=== PATIENT | female | born 1935 | race Caucasian/White ===

== ENCOUNTER 2019-08-16 16:07 | Inpatient (IN) | payer OTHER, MEDICARE ==
--- OUTSIDE RECORDS SUMMARY | 2019-08-16 16:09 | XMS REPORT | Clinical Summary ---
:[address] [facility] Address [address] [place] [address] Care Team Providers Name Role Phone Pcp Primary Care Provider Unavailable Allergies Active Allergy Reactions Severity Noted Date Comments Black [place] Hives 07/17/2019 Egg Yolk 07/17/2019 Only runny nose Raloxifene Swelling 07/27/2014 Gabapentin Palpitations Low 07/27/2014 Oxybutynin 01/19/2019 Scopolamine 07/27/2014 Hallucination Tree Nut Hives 07/17/2019 Medications Medication Sig Dispensed Refills Start End Date Status Date atorvastatin Take 40 mg by 0 Act chris (LIPITOR) 40 MG mouth daily. tablet levothyroxine Take 25 mcg by 0 A ctive (SYNTHROID, mouth Every LEVOTHROID) 25 MCG morning on an tablet empty stomach. Lactobacillus Take 1 tablet by 60 tablet 1 Active acidoph-L.bulgar mouth 2 (two) 8 (FLORANEX) 1 times daily. million cell Tab per tablet amiodarone Take 100 mg by 0 Acti ve (PACERONE) 100 MG mouth daily. tablet levETIRAcetam Take 250 mg by 0 A ctive (KEPPRA) 250 MG mouth 2 (two) 0 tablet times daily. fenofibrate Take 160 mg by 0 Act chris (TRIGLIDE,LOFIBRA) mouth daily. 0 160 MG tablet metoprolol Take 25 mg by 0 Activ e succinate mouth 2 (two) 0 (TOPROL-XL) 25 MG times daily. 24 hr tablet MYRBETRIQ 50 mg 50 mg by O2 0 Ac tive Tb24 ER tablet Aerosolization 0 route daily. rivaroxaban Take 15 mg by 0 Acti ve (XARELTO) 15 mg mouth daily. 9 Tab tablet fenofibrate Take 160 mg by 0 07/17/19 Dis continued (TRICOR) 145 MG mouth daily . 20 tablet rivaroxaban Take 20 mg by 0 07/17/19 Disc ontinued (XARELTO) 20 mg mouth daily with 20 Tab tablet dinner. levETIRAcetam Take 500 mg by 0 07/17/19 D iscontinued (KEPPRA) 500 MG mouth 2 (two) 20 tablet times daily . amiodarone Take 1 tablet (100 30 tablet 1 08/21/19 (PACERONE) 100 MG mg total) by mouth 8 19 tablet daily. acetaminophen Take 2 tablets 30 tablet 0 10/19/19 E xpired (TYLENOL) 325 MG (650 mg total) by 8 19 tablet mouth every 4 (four) hours as needed for Fever (greater than 100.4F) for up to 360 days. metoprolol Take 1 tablet (25 180 tablet 1 10/24/19 (TOPROL-XL) 25 MG mg total) by mouth 8 19 24 hr tablet 2 (two) times daily. Hospital, Clinic, or Other Ordered Dose Route Frequency Start Date End Date Status Facility Administered Medication chlorhexidine (HIBICLENS) Top Once 07/17/2019 Ended external liquid 4% Active Problems Problem Noted Date Atrial flutter 07/21/2019 Hemorrhagic shock 10/17/2017 Acute blood loss anemia 10/17/2017 Hypothyroid 10/17/2017 S/P cholecystectomy 10/17/2017 A-fib 08/18/2017 Diverticulitis 08/15/2017 Cholelithiasis 08/13/2017 Syncope, cardiogenic 07/18/2017 Atrial fibrillation 07/27/2014 Encounters Date Type Specialty Care Team Description 07/21/2019 Surgery Agus Ramesh EPS & ABLATION OF SVT MD Hema W/ KETAN 07/21/2019 Hospital Encounter Agus Ramesh MD 07/21/2019 Orders Only Cardiology Agus Ramesh MD 07/17/2019 Office Visit Cardiology Agus Ramesh Pre-op exam (Pr owen Garrido MD Dx) Codey Norman RN 07/17/2019 Travel 07/17/2019 Orders Only General Internal Medicine 08/18/2018 Hospital Encounter Nico Rogers Paroxys mal atrial fibrillation (HCC); MD Miller Hypertension, u nspecified type; Hyperlipidemia, unspecified hyperlipidemia type; Mitral valve fi lamentous strands; High risk medic ation use; Abnormal breath sounds after 08/15/2018 Family History Medical History Relation Name Comments Cancer Father Heart disease Mother Stroke Mother Stroke Sister Relation Name Status Comments Father Mother Sister Social History Tobacco Use Types Packs/Day Years Used Date Never Smoker Smokeless Tobacco: Never Used Alcohol Use Drinks/Week oz/Week Comments No Sex Assigned at Date Recorded Not on file Job Start Date Occupation Industry Not on file Not on file Not on file Travel History Travel Start Travel End No recent travel history available. Last Filed Vital Signs Vital Sign Reading Time Taken Blood Pressure 99/56 07/21/2019 2:00 PM CDT Pulse 76 07/21/2019 2:00 PM CDT Temperature 36.7 C (98.1 F) 07/21/2019 7:38 AM CDT Respiratory Rate 16 07/21/2019 2:00 PM CDT Oxygen Saturation 98% 07/21/2019 2:00 PM CDT Inhaled Oxygen Concentration - - Weight 58.2 kg (128 lb 4.8 oz) 07/21/2019 7:38 AM CDT Height 170.2 cm (5' 7") 07/21/2019 7:38 AM CDT Body Mass Index 20.09 07/21/2019 7:38 AM CDT Plan of Treatment Health Maintenance Due Date Last Done Comments MEDICARE ANNUAL WELLNESS (YEAR 2 or FIRST 04/27/2003 YEAR if no IPPE) PNEUMOCOCCAL 65+ LOW/MEDIUM RISK (2 of 2 - 11/28/201811/28, 06/10/2012 PCV13) INFLUENZA VACCINE (Season Ended) 2019 11/19/2013 Implants Implanted Type Area Life Sciences Manager Device Shelf Model / Identifier Expiration Serial / Date Lot Lead Pacemkr Capsur Novus [id number] - [id number] Pacemaker Le ad N/A: [employer]:CARD 04/30/2019 [id number] / Implanted: Qty: 1 on 07/19/2017 by Agus Ramesh MD Heart RHY:DISEASE MGT [id number] / Lead Pacemkr Capsur Novus [id number] - [id number] Pacemaker Le ad N/A: [employer]:CARD 02/09/2019 [id number] / Implanted: Qty: 1 on 07/19/2017 by Agus Ramesh MD Heart RHY:DISEASE MGT [id number] / Cristy Xt Dr Stephania Valenzuela Pacemakers N/A: [employer] 11/26 [id number] / Implanted: Qty: 1 on 07/19/2017 by Agus Ramesh MD He art [id number] / Procedures Procedure Name Priority Date/Time Associated Diagnosis Comme nts CARDIAC CATH REPORT - 07/22/2019 10:40 AM SCAN CDT EPS & ABLATION OF SVT 07/21/2019 7:35 AM Atrial flutt er, W/ KETAN CDT unspecified type (HCC) Case Notes (2)CASE 6TOP / SVT w/ ketan Special Needs No anesthesia TRANSFUSION SERVICE 07/18/2019 5:53 PM REPORT - SCAN CDT CBC W/PLT COUNT & AUTO Routine 07/17/2019 1:06 PM Results for this DIFFERENTIAL CDT procedure are i n the results section . TYPE AND SCREEN, STAT 07/17/2019 1:06 PM Pre-op exam Resu lts for this AUTOMATED CDT procedure are i n the results section . PROTHROMBIN TIME/INR Routine 07/17/2019 1:06 PM Results for this CDT procedure are i n the results section . CBC W/PLT COUNT & AUTO Routine 07/17/2019 1:06 PM Results for this DIFFERENTIAL CDT procedure are i n the results section . BASIC METABOLIC PANEL Routine 07/17/2019 1:06 PM Results for this (7) CDT procedure are i n the results section . SARS-COV2/RT-PCR (HS & Routine 07/17/2019 12:43 PM Pre-op ex am Results for this REF LABS) CDT procedure are i n the results section . ECG 12-LEAD Routine 07/17/2019 12:25 PM Results for this CDT procedure are i n the results section . ECG 12-LEAD Routine 07/17/2019 12:25 PM CDT Procedure Note - Interface, External Ris In - 07/17/2019 12:22 PM CDT Ventricular Rate 72 BPM Atrial Rate 72 BPM P-R Interval 156 ms QRS Duration 96 ms Q-T Interval 390 ms QTC Calculation(Bazett) 427 ms P [place] 61 degrees R [place] 41 degrees T [place] 79 degrees Normal sinus rhythm Incomplete right bundle bran ch block Borderline ECG When compared with ECG of 15:01, Nonspecific T wave abnormali ty no longer evident in Inferior leads QT has shortened XR CHEST 2 Routine 08/18/2018 11:00 Paroxysmal atrial Result s for this VIEWS AM CDT fibrillation (HC C) procedure are in Hypertension, unspecified th e results type section. Hyperlipidemia, unspecified hyperlipidemia t ype Mitral valve filamentous strands High risk medica tion use Abnormal breath sounds after 08/15/2018 Results CARDIAC CATH REPORT - SCAN (07/22/2019 10:40 AM CDT) Narrative Performed At This result has an attachment that is no t available. TRANSFUSION SERVICE REPORT - SCAN (07/18/2019 5:53 PM CDT) Narrative Performed At This result has an attachment that is no t available. Type and screen, automated ([facility] Blood [facility]) (07/17/2019 1:06 PM CDT) ABO/RH AUTOMATED (BEAKER) A POSITIVE [facility] Ab Scrn NEGATIVE [facility] Specimen Blood Performing Organization Address City/State/Zipcode Phone Number [facility] [address] [place] [address] CBC with platelet count + automated diff (07/17/2019 1:06 PM CDT) WBC 7.9 3.5 - 10.5 K/L [facility] RBC 4.34 3.93 - 5.22 M/L [facility] Hemoglobin 13.0 11.2 - 15.7 GM/DL [facility] Hematocrit 40.8 34.1 - 44.9 % [facility] MCV 94.0 79.4 - 94.8 fL [facility] MCH 30.0 25.6 - 32.2 pg [facility] MCHC 31.9 (L) 32.2 - 35.5 GM/DL [facility] RDW 15.1 (H) 11.7 - 14.4 % [facility] Platelets 202 150 - 450 K/CU MM [facility] MPV 9.6 9.4 - 12.[address] [facility] nRBC 0 0 - 0 /[address] [facility] % Neutros 69 % [facility] % Lymphs 22 % [facility] % Monos 6 % [facility] % Eos 2 % [facility] % Baso 1 % [facility] # Neutros 5.45 1.56 - 6.13 K/L [facility] # Lymphs 1.74 1.18 - 3.74 K/L [facility] # Monos 0.45 (H) 0.24 - 0.36 K/L [facility] # Eos 0.17 0.04 - 0.36 K/L [facility] # Baso 0.04 0.01 - 0.08 K/L [facility] Immature Granulocytes-Relative 0 0 - 1 % C HI [facility] Specimen Blood Performing Organization Address City/State/Zipcode Phone Number [facility] [address] [place] [address] CENTER Prothrombin time/INR (07/17/2019 1:06 PM CDT) Protime 18.0 (H) 11.9 - 14.2 seconds [facility] INR 1.5 <=5.9 [facility] Specimen Blood Narrative Performed At Effective 07/23/2018: PT Reference Range [facility] Change New: 11.9-14.2Previous: 11.7-14.7 RECOMMENDED COUMADIN/WARFARIN INR THERAPY RANGES STANDARD DOSE: 2.0-3.0Includes: PROPHYLAXIS for venous thrombosis, systemic embolization; TREATMENT for venous thrombosis and/or pulmonary embolus. HIGH RISK: Target INR is 2.5-3.5 for patients wiht mechanical heart valves. Performing Organization Address [facility] Cent[facility]ode Phone Number [address] [phone] CENTER Basic Metabolic Panel (07/17/2019 1:06 PM CDT) Sodium 140 136 - 145 meq/L [facility] Potassium 4.4 3.5 - 5.1 meq/L [facility] Chloride 107 98 - 107 meq/L [facility] CO2 28 22 - 29 meq/L [facility] BUN 17 7 - 21 mg/dL [facility] Creatinine 0.91 0.57 - 1.25 mg/dL [facility] Glucose 81 70 - 105 mg/dL [facility] Calcium 10.1 8.4 - 10.2 mg/dL [facility] EGFR 59Comment: ESTIMATED GFR IS mL/min/1.73 sq m [facility] NOT ACCURATE CREATININE [facility] CLEARANCE IN PREDICTING GLOMERULAR FILTRATION RATE. ESTIMATED GFR IS NOT APPLICABLE FOR DIALYSIS PATIENTS. Specimen Blood Narrative Performed At Human Resource Management Instructor AYDEN - VAN Weber [facility] Performing Organization Address [facility] Centercovt Phone Number [place] [phone] [place] [address] CENTER SARS-CoV2/RT-PCR (HS & Ref Labs) (07/17/2019 12:43 PM CDT) SARS-COV2/RT-PCR Negative Not Detected, Negative [facility] NON -INTERFACED REFERENCE LABS SARS-COV-2 PERFORMING LAB CPL [facility] N ON-INTERFACED REFERENCE LABS Specimen Other Performing Organization Address [facility] Phone Number [facility] NON-INTERFACED REFERENCE LABS ECG 12 lead (07/17/2019 12:25 PM CDT) Specimen Narrative Performed At Ventricular Rate 72 BPM GE MUSE Atrial Rate 72 BPM P-R Interval 156 ms QRS Duration 96 ms Q-T Interval 390 ms QTC Calculation(Bazett) 427 ms P [place] 61 degrees R [place] 41 degrees T [place] 79 degrees Normal sinus rhythm Incomplete right bundle branch block Confirmed by MD BAIRES JAMES T ([id number]) on 0 3:01:57 PM Procedure Note Interface, External Ris In - 07/21/2019 3:02 PM CDT Ventricular Rate 72 BPM Atrial Rate 72 BPM P-R Interval 156 ms QRS Duration 96 ms Q-T Interval 390 ms QTC Calculation(Bazett) 427 ms P [place] 61 degrees R [place] 41 degrees T [place] 79 degrees Normal sinus rhythm Incomplete right bundle branch block Confirmed by MD BAIRES JAMES T ([id number]) on 07/21/2019 3:01:57 PM Performing Organization Address City/State/Zipcode Phone Number GE MUSE XR Chest 2 Views (08/18/2018 11:00 AM CDT) Specimen Narrative Performed At FINAL REPORT GE RIS PA and Lateral views of the chest dated 08/18/2018 COMPARISON: February 03, 2018 Clinical information: i48.0, i10, e78.5, i34.8, z79.899, r06.89 Comment:Heart is normal in size. Tho racic aorta is ectatic. AICD remains in place. Pulmonary vasculature is unremarkable. Lungs are clear. No pulmonary infiltrate or pleura l effusion is present. Impression: Stable interval examination of the chest. Signed: Kenia Morrison MD Report Verified Date/Time:08/18/2018 11:22:44 Reading Location: [address] Radiolog y Reading Room Procedure Note Interface, External Ris In - 08/18/2018 11:24 AM CDT FINAL REPORT PA and Lateral views of the chest dated 08/18/2018 COMPARISON: February 03, 2018 Clinical information: i48.0, i10, e78.5, i34.8, z79.899, r06.89 Comment: Heart is normal in size. Thora cic aorta is ectatic. AICD remains in place. Pulmonary vasculature is unremarkable. Lungs are clear. No pulmonary infiltrate or pleura l effusion is present. Impression: Stable interval examination of the chest. Signed: Kenia Morrison MD Report Verified Date/Time: 08/18/2018 1 1:22:44 Reading Location: [address] Radiolog y Reading Room Performing Organization Address City/State/Zipcode Phone Number GE RIS after 08/15/2018 Insurance Payer Benefit Plan / Group Subscriber ID Type Phone A ddress MEDICARE MEDICARE A B xxxxxxxxxxx Medicare MCR AARP/UNITED xxxxxxxxxxx Medigap SUPPLEMENT/[facility] CDCREVIEW CDCREVIEW xxxxx[place] [address] [place] [place] [address] Advance Directives For more information, please contact:[address] [phone] Code Status Date Activated Date Inactivated Comments Full Code 07/21/2019 12:09 PM 07/21/2019 5:54 PM This code status was determined by: Patient Full Code 10/17/2017 5:58 AM 10/23/2017 12:59 PM This code status was determined by: Patient Full Code 08/18/2017 6:39 PM 08/20/2017 7:40 PM This code status was determined by: Patient Full Code 07/18/2017 4:50 PM 07/20/2017 8:47 PM This code status was determined by: Patient Full Code 07/27/2014 12:21 PM 07/28/2014 3:34 PM This code status was determined by: Patient
--- OUTSIDE RECORDS SUMMARY | 2019-08-16 16:14 | XMS REPORT | Continuity of Care Document ---
:1935 Author Organization [facility] t Address [address] [place] [address] Care Team Providers Name Role Phone Pcp Primary Care Physician Unavailable Hema Ramesh MD Attending Clinician Emerson GREEN S Attending Clinician Unavailable HEMA RAMESH Attending Clinician Unavailable Toño Rogers MDemiah Attending Clinician REJI VELASCO Attending Clinician Unavailable MARCIANO SRIVASTAVA Attending Clinician Unavailable LISBETH FERNÁNDEZ Attending Clinician Unavailable Lesley GRANADO Attending Clinician Unavailable JASWANT Attending Clinician Unavailable REJI VELASCO Admitting Clinician Unavailable MARCIANO SRIVASTAVA Admitting Clinician Unavailable LISBETH FERNÁNDEZ Admitting Clinician Unavailable Lesley GRANADO Admitting Clinician Unavailable HUEY ANDREWS Admitting Clinician Unavailable Payers Payer Name Policy Policy Number Effective Expiration Source Type Date Date MEDICAREMEDICARE A xxxxxxxxxxx [facility] MCR xxxxxxxxxxx [facility] SUPPLEMENT/INDIVIDUALAARP/UNITE [facility]xxxxxxxxxxx[facility] CDCREVIEWCDCREVIEWxxxxxxxxPO xxxxxxxx [place] [address] [facility] Problems Condition Condition Condition Status Onset Resolution Last Treating Co mments Source Name Details Category Date Date Treatment Clinician Date Atrial Atrial Disease Active [facility] flutter 07-20 [facility]: [facility] 00 [place] Hemorrhagi Hemorrhagi Disease Active [facility] shock c shock 10-17 [facility]: [facility] [place] Acute Acute Disease Active [facility] blood loss blood loss 10-17 Xuan kes - anemia anemia 00:00: Medical [place] Hypothyroi Hypothyroi Disease Active [facility] d d 10-17 [facility] [place] S/P S/P Disease Active [facility] cholecyste cholecyste 10-17 Xuan kes - ctomy ctomy 00:00: Medical [place] A-fib A-fib Disease Active [facility] 08-18 [facility]: Medical [place] Diverticul Diverticul Disease Active [facility] itis itis 08-15 [facility] 00:00: Medical [place] Cholelithi Cholelithi Disease Active [facility] asis asis 08-13 [facility] 00:00: Medical [place] Syncope, Syncope, Disease Active [facility] cardiogeni cardiogeni 07-18 [facility] - c c 00:00: Medical [place] Atrial Atrial Disease Active [facility] fibrillati fibrillati 07-27 Xuan kes - on on 00:00: Medical 00 [place] Allergies, Adverse Reactions, Alerts Allergy Allergy Status Severity Reaction(s) Onset Inactive Treating Comm ents Source Name Type Date Date Clinician Black Propensi Active Hives [facility] - [facility] - adverse 00:[facility]: Medical reaction 00 [facility] Egg Yolk Propensi Active Only [facility] ty to - runny [facility] - adverse 00:00: nose Medical reaction 00 Center s Tree Nut Propensi Active Hives [facility] ty to 5-22 [facility] - adverse 00:00: Medical reaction 00 [place] s scopolam DA Active [place] 2018-02 [facility]-25 Clear 00:00: Cm 00 [facility] egg yolk FA Active [place] 2018-02 [facility] 1-25 Clear 00:00: Cm 00 [facility] raloxife DA Active [place] 2018-02 [facility] ne 1-25 Clear 00:00: Cm 00 [facility] Oxybutyn Propensi Active 2018-[address] in ty to 03-21 [facility] - adverse 00:00: Medical reaction 00 Center s Raloxife Propensi Active Swelling [facility] ne ty to 07-27 [facility] - adverse 00:00: Medical reaction 00 Center s Gabapent Propensi Active Palpitations [facility] in ty to 07-27 [facility] - adverse 00:00: Medical reaction 00 Center s Scopolam Propensi Active Hallucina [facility] ty to 07-27 tion [facility] - adverse 00:00: Medical reaction 00 [facility] s scopolam DA Active [facility] [address] [place] 00:00: d 00 [facility] egg yolk FA Active [place] [facility] 4-17 [place] 00:00: d 00 [facility] raloxife DA Active [place] [facility] ne 4-17 [place] 00:00: d 00 [facility] NUTS DA Active [place] [facility] -ALL 4-16 Clear EXCEPT 00:00: Cm PEANUTS 00 [facility] Family History Family Member Diagnosis Comments Start Date Stop Date Source Natural father Cancer [facility] Natural mother Heart disease [facility] Natural mother Stroke [facility] Natural sister Stroke [facility] Social History Social Habit Start Date Stop Date Quantity Comments Source Sex Assigned At [facility] Smoking Status Start Date Stop Date Source Never smoker [facility] Medications Ordered Filled Start Stop Current Ordering Indication Dosage Frequency Signature Comments Components Source Medication Medication Date Date Medication? Clinician (SIG) Name Name chlorhexidi 2019-0 2020- No [facility]22 [facility] - (HIBICLENS) 13:00: 13:30 Medic al external 00 :00 [facility] liquid 4% fenofibrate 2019- 2020- No 160mg QD Take [address] (TRICOR) - 05-22 mg by [facility] - 145 MG 12:35: 00:00 mouth Medical tablet 53 :00 daily . [facility] rivaroxaban 2019-0 2020- No 20mg Take [address] (XARELTO) - 05-22 by mouth [facility] - 20 mg Tab 12:35: 00:00 daily with M edical tablet 37 :00 dinner. [place] levETIRAcet 2020- No 500mg Q.5D Take [address] [facility] (KEPPRA) 5-22 05-22 mg by [facility] - 500 MG 12:35: 00:00 mouth 2 Medical tablet 37 :00 (two) Center times daily . amiodarone 0 Yes 100mg QD Take [address] (PACERONE) 5-22 mg by [facility] - 100 MG 12:33: mouth Medical tablet 43 daily. [place] levETIRAcet 0 Yes 250mg Q.5D Take [address] am (KEPPRA) 5-06 mg by [facility] - 250 MG 00:00: mouth 2 Medical tablet 00 (two) Center times daily. MYRBETRIQ Yes 50mg QD [address] [facility] 50 mg Tb24 4-29 O2 [facility] - ER tablet 00:00: Aerosoliza Me dical 00 tion route Center daily. metoprolol Yes 25mg Q.5D Take [address] succinate 4-06 by mouth 2 [facility] - (TOPROL-XL) 00:00: (two) Medic al 25 MG 24 hr 00 times Center tablet daily. fenofibrate Yes 160mg QD Take [address] (TRIGLIDE,L 3-23 mg by [facility] - OFIBRA) 160 00:00: mouth Medic al MG tablet 00 daily. [place] rivaroxaban 2018-02 Yes 15mg QD Take [address] (XARELTO) 1-18 by mouth [facility] - 15 mg Tab 00:00: daily. Medica l tablet 00 [place] metoprolol 2019- No 25mg Q.5D Take [address] (TOPROL-XL) 10-23 tablet (25 L [facility] - 25 MG 24 hr 00:00: 23:59 mg total) Medical tablet 00 :00 by mouth 2 Center (two) times daily. acetaminoph 2018- No 650mg Take [address] en 10-23 08-24 tablets [facility] - (TYLENOL) 00:00: 23:59 (650 mg Medi kip 325 MG 00 :00 total) by Center tablet mouth every 4 (four) hours as needed for Fever (greater than 100.4F) for up to 360 days. amiodarone 2019- No 100mg QD Take [address] (PACERONE) 08-20 06-26 tablet [facility] - 100 MG 00:00: 23:59 (100 mg Medical tablet 00 :00 total) by Center mouth daily. Lactobacill Yes 1{tbl} Q.5D Take [address] [facility] 6-22 tablet by [facility] - acidoph-L.b 00:00: mouth 2 Med ical ulgar 00 (two) Center (FLORANEX) times 1 million daily. cell Tab per tablet levothyroxi Yes 25ug Take [address] ne 5-[address] [facility] - (SYNTHROID, 12:07: mouth Medic al LEVOTHROID) 23 Every Center 25 MCG morning on tablet an empty stomach. atorvastati Yes 40mg QD Take [address] n (LIPITOR) 6-02 by mouth [facility] - 40 MG 11:34: daily. Medical tablet 04 Center Vital Signs Vital Name Observation Time Observation Value Comments Source Systolic blood 2019-07-21 14:00:00 99 mm[Hg] [facility] Diastolic blood 2019-07-21 14:00:00 56 mm[Hg] [facility] Heart rate 2019-07-21 14:00:00 76 /min [facility] Respiratory rate 2019-07-21 14:00:00 16 /min [facility] Oxygen saturation in 2019-07-21 14:00:00 98 /min [facility] Arterial blood by Medical Ce nter Pulse oximetry Body temperature 2019-07-21 07:38:00 36.72 Jessa [facility] Body height 2019-07-21 07:38:00 170.2 cm [facility] Body weight Measured 2019-07-21 07:38:00 58.196 kg [facility] BMI 2019-07-21 07:38:00 20.09 kg/m2 [facility] Procedures Procedure Date / Time Performed Performing Clinician [facility] e CARDIAC CATH REPORT - 2019-07-22 10:40:41 Provider, Default [facility] SCAN Scanning [facility] EPS & ABLATION OF SVT W/ 2019-07-21 07:35:[address] [facility] JONAH [facility] TRANSFUSION SERVICE 2019-07-18 17:53:51 Provider, Eric Baxter - REPORT - SCAN Scanning [facility] BASIC METABOLIC PANEL 2019-07-17 13:06:00 Agus Ramesh [facility] Center PROTHROMBIN TIME/INR 2019-07-17 13:06:00 Agus Ramesh [facility] - [facility] TYPE AND SCREEN, 2019-07-17 13:06:00 Agus Ramesh [facility] - AUTOMATED Medical Center CBC W/PLT COUNT & AUTO 2019-07-17 13:06:00 Agus Ramesh I [facility] - DIFFERENTIAL [facility] SARS-COV2/RT-PCR ([facility] & 2019-07-17 12:43:00 [facility] ECG 12-LEAD 2019-07-17 12:25:[address] [facility] XR CHEST 2 VIEWS 2018-08-18 11:00:00 Nico Rogers [facility] Plan of Care Planned Activity Planned Date Details Comments Source Future Scheduled 2019-10-[address] [facility] - Test 00:00:00 (Season Ended) [code = [facility] INFLUENZA VACCINE (Season Ended)] Future Scheduled 2018-11-28 PNEUMOCOCCAL [address] - Test 00:00:00 LOW/MEDIUM RISK (2 of [facility] 2 - PCV13) [code = PNEUMOCOCCAL 65+ LOW/MEDIUM RISK (2 of 2 - PCV13)] Future Scheduled 2003-04-[address] [facility] - Test 00:00:00 WELLNESS (YEAR 2 or Medical Center FIRST YEAR if no IPPE) [code = MEDICARE ANNUAL WELLNESS (YEAR 2 or FIRST YEAR if no IPPE)] Results Test Description Test Time Test Comments Results Result [facility] e Comments ECG 12 lead 2019-06-27 Interface, External [facility] 6 Ris In - 07/21/2019 - Med ical 15:02:02 3:02 PM Center CDTVentricular Rate 72 BPMAtrial Rate 72 BPMP-R Interval 156 msQRS Duration 96 msQ-T Interval 390 msQTC Calculation(Bazett) 427 msP [place] 61 degreesR [place] 41 degreesT [place] 79 degreesNormal sinus rhythmIncomplete right bundle branch blockConfirmed by MD VIRY, KENIA Major ([id number]) on 07/21/2019 3:01:57 PM SARS-CoV2/RT-PCR ([facility]) 2019-07-19 07:35:00 Test Item Value Reference Range Interpretation Comme nts SARS-COV2/RT-PCR (test code = 16586-5) Negative Not Detected, N egative SARS-COV-2 PERFORMING LAB (test code = 58571-1) [facility])2019-07-19 07:35:00 Test Item Value Reference Range Interpretation Comments SARS-COV2/RT-PCR (test code = Negative Not Detected, Negative [id number]) SARS-COV-2 PERFORMING LAB CPL (test code = 2837173) Type and screen, automated ([facility])2019-07-17 13:45:00 Test Item Value Reference Range Interpretation Comments ABO/RH AUTOMATED (BEAKER) (test A POSITIVE code = 2260) Ab Scrn (test code = 890-4) NEGATIVE [facility] [id number] 13:43:00 Test Item Value Reference Range Interpretation Comments Sodium (test code = 140 meq/L 040-090 6179-2) Potassium (test 4.4 meq/L 3.5-5.1 code = 2823-3) Chloride (test code 107 meq/L 98-107 = 2075-0) CO2 (test code = 28 meq/L -29 2027-9) BUN (test code = 17 mg/dL 7- 3094-0) Creatinine (test 0.91 mg/dL 0.57-1.25 code = 2160-0) Glucose (test code 81 mg/dL 70-105 = 2345-7) Calcium (test code 10.1 mg/dL 8.4-10.2 = 38459-6) EGFR (test code = 59 mL/min/1.73 [place] [address]-9) NOT ACCURATE CREATININE CLEARANCE IN PREDICTING GLOMERULAR FILTRATION RATE . ESTIMATED GFR I S NOT APPLICABLE FOR DIALYSIS PATIEN TSMadelaine VALDOVINOS (test code = Adjunct Instructor Chemistry ID - ARUNA) VAN M [facility] Center[facility]IC METABOLIC [id number] 13:43:00 Test Item Value Reference Range Interpretation Comments SODIUM (BEAKER) 140 meq/L 136-145 (test code = 381) POTASSIUM (BEAKER) 4.4 meq/L 3.5-5.1 (test code = 379) CHLORIDE (BEAKER) 107 meq/L 98-107 (test code = 382) CO2 (BEAKER) (test 28 meq/L 22-29 code = 355) BLOOD UREA NITROGEN 17 mg/dL 7-21 (BEAKER) (test code = 354) CREATININE (BEAKER) 0.91 mg/dL 0.57-1.25 (test code = 358) GLUCOSE RANDOM 81 mg/dL 70-105 (BEAKER) (test code = 652) CALCIUM (BEAKER) 10.1 mg/dL 8.4-10.2 (test code = 697) EGFR (BEAKER) (test 59 mL/min/1.73 ESTIMA SHALONDA GFR IS code = 1092) sq m NOT ACCURATE CREATININE CLEARANCE IN PREDICTING GLOMERULAR FILTRATION RATE . ESTIMATED GFR I S NOT APPLICABLE FOR DIALYSIS PATIEN TS. Adjunct Instructor Chemistry ID - VAN MProthrombin time/[id number] 13:34:00 Test Item Value Reference Range Interpretation Comments Protime (test code = 18.0 11.9- 14.2 H 5902-2) seconds INR (test code = 1.5 <=5.9 6301-6) ARUNA (test code = ARUNA) Effective 07/23/2018: PT Reference Range ChangeNew: 11.9-14.2 Previous: 11.7-14.7 RECOMMENDED COUMADIN/WARFARIN INR THERAPY RANGESSTANDARD DOSE: 2.0-3.0 Includes: PROPHYLAXIS for venous thrombosis, systemic embolization; TREATMENT for venous thrombosis and/or pulmonary embolus.HIGH RISK: Target INR is 2.5-3.5 for patients wiht mechanical heart valves. Lab Interpretation Abnormal (test code = 08315-4) [facility] CenterPROTHROMBIN TIME/[id number] 13:34:00 Test Item Value Reference Range Interpretation Comments PROTIME (BEAKER) (test code = 18.0 seconds 11.9-14.2 H 759) INR (BEAKER) (test code = 370) 1.5 <=5.9 Effective 07/23/2018: PT Reference Range ChangeNew: 11.9-14.2 Previous: 11.7- 14.7RECOMMENDED COUMADIN/WARFARIN INR THERAPY RANGESSTANDARD DOSE: 2.0-3.0 Includes: PROPHYLAXIS for venous thrombosis, systemic embolization; TREATMENT for venous thrombosis and/or pulmonary embolus.HIGH RISK: Target INR is2.5-3.5 for patients wiht mechanical heart valves.CBC with platelet count + automated [id number] 13:16:00 Test Item Value Reference Range Interpretation Comments WBC (test code = 6690-2) 7.9 3.5- 10.5 K/L RBC (test code = 789-8) 4.34 3.93- 5.22 M/L MCHC (test code = 786-4) 31.9 32.2- 35.5 GM/DL L Hematocrit (test code = 4544-3) 40.8 % 34.1-44.9 MCV (test code = 787-2) 94.0 fL 79.4-94.8 MCH (test code = 785-6) 30.0 pg 25.6-32.2 RDW (test code = 788-0) 15.1 % 11.7-14.4 H Platelets (test code = 777-3) 202 150- 450 K/CU MM MPV (test code = 64751-5) 9.6 fL 9.4-12.3 nRBC (test code = 413) 0 0- 0 /100 WBC % Neutros (test code = 429) 69 % % Lymphs (test code = 430) 22 % % Monos (test code = 431) 6 % % Eos (test code = 432) 2 % % Baso (test code = 437) 1 % # Neutros (test code = 670) 5.45 1.56- 6.13 K/L # Lymphs (test code = 414) 1.74 1.18- 3.74 K/L # Monos (test code = 415) 0.45 0.24- 0.36 K/L H # Eos (test code = 416) 0.17 0.04- 0.36 K/L # Baso (test code = 417) 0.04 0.01- 0.08 K/L Immature Granulocytes-Relative 0 % 0-1 (test code = 2801) Lab Interpretation (test code = Abnormal 50446-7) [facility] W/PLT COUNT & AUTO [id number] 13:16:00 Test Item Value Reference Range Interpretation Comments WHITE BLOOD CELL COUNT (BEAKER) 7.9 K/ L 3.5-10.5 (test code = 775) RED BLOOD CELL COUNT (BEAKER) 4.34 M/ L 3.93-5.22 (test code = 761) HEMOGLOBIN (BEAKER) (test code = 13.0 GM/DL 11.2-15.7 410) HEMATOCRIT (BEAKER) (test code = 40.8 % 34.1-44.9 411) MEAN CORPUSCULAR VOLUME (BEAKER) 94.0 fL 79.4-94.8 (test code = 753) MEAN CORPUSCULAR HEMOGLOBIN 30.0 pg 25.6-32.2 (BEAKER) (test code = 751) MEAN CORPUSCULAR HEMOGLOBIN CONC 31.9 GM/DL 32.2-35.5 L (BEAKER) (test code = 752) RED CELL DISTRIBUTION WIDTH 15.1 % 11.7-14.4 H (BEAKER) (test code = 412) PLATELET COUNT (BEAKER) (test 202 K/CU MM 150-450 code = 756) MEAN PLATELET VOLUME (BEAKER) 9.6 fL 9.4-12.3 (test code = 754) NUCLEATED RED BLOOD CELLS 0 /100 WBC 0-0 (BEAKER) (test code = 413) NEUTROPHILS RELATIVE PERCENT 69 % (BEAKER) (test code = 429) LYMPHOCYTES RELATIVE PERCENT 22 % (BEAKER) (test code = 430) MONOCYTES RELATIVE PERCENT 6 % (BEAKER) (test code = 431) EOSINOPHILS RELATIVE PERCENT 2 % (BEAKER) (test code = 432) BASOPHILS RELATIVE PERCENT 1 % (BEAKER) (test code = 437) NEUTROPHILS ABSOLUTE COUNT 5.45 K/ L 1.56-6.13 (BEAKER) (test code = 670) LYMPHOCYTES ABSOLUTE COUNT 1.74 K/ L 1.18-3.74 (BEAKER) (test code = 414) MONOCYTES ABSOLUTE COUNT (BEAKER) 0.45 K/ L 0.24-0.36 H (test code = 415) EOSINOPHILS ABSOLUTE COUNT 0.17 K/ L 0.04-0.36 (BEAKER) (test code = 416) BASOPHILS ABSOLUTE COUNT (BEAKER) 0.04 K/ L 0.01-0.08 (test code = 417) IMMATURE GRANULOCYTES-RELATIVE 0 % 0-1 PERCENT (BEAKER) (test code = 2801) BASIC METABOLIC [id number] 06:49:00 Test Item Value Reference Range Interpretation Comments SODIUM (test code = NA) 144 mmol/L 134-147 N POTASSIUM (test code = 3.1 mmol/L 3.4-5.0 L K) CHLORIDE (test code = 113 mmol/L 100-108 H CL) CARBON DIOXIDE (test 27 mmol/L 21-32 N code = CO2) ANION GAP (test code = 4.0 GAP calc 4.0-15.0 N GAP) GLUCOSE (test code = 80 MG/DL 70-110 N GLU) BLOOD UREA NITROGEN 5 MG/DL 7-18 L (test code = BUN) GLOMERULAR FILTRATION >=60 max estimate >60 RATE (test code = GFR) estGFR CREATININE (test code = 0.6 MG/DL 0.6-1.0 N CREAT) CALCIUM (test code = CA) 8.1 MG/DL 8.5-10.1 L CBC W/AUTO [id number] 06:38:00 Test Item Value Reference Range Interpretation Comments WHITE BLOOD CELL (test code = 7.8 K/mm3 3.5-11.0 N WBC) RED BLOOD CELL (test code = RBC) 2.97 M/mm3 4.70-6.10 L HEMOGLOBIN (test code = HGB) 9.1 G/DL 10.4-14.9 L HEMATOCRIT (test code = HCT) 27.3 % 31.5-44.1 L MEAN CELL VOLUME (test code = 91.9 Fl 84.5-98.6 N MCV) MEAN CELL HGB (test code = MCH) 30.6 pg 27.0-34.2 N MEAN CELL HGB CONCETRATION (test 33.3 G/DL 31.5-34.0 N code = MCHC) RED CELL DISTRIBUTION WIDTH (test 15.7 SD 11.5-14.5 H code = RDW) PLATELET COUNT (test code = PLT) 254.0 K/mm3 150-450 N MEAN PLATELET VOLUME (test code = 9.30 fL 7.0-10.5 N MPV) NEUTROPHIL % (test code = NT%) 64.0 % 40-76 N LYMPHOCYTE % (test code = LY%) 19.6 % 20.5-51.1 L MONOCYTE % (test code = MO%) 8.7 % 1.7-9.3 N EOSINOPHIL % (test code = EO%) 7.4 % 0.0-6.0 H BASOPHIL % (test code = BA%) 0.3 % 0.0-2.0 N NEUTROPHIL # (test code = NT#) 4.99 K/mm3 1.8-7.6 N LYMPHOCYTE # (test code = LY#) 1.5 K/mm3 0.6-3.2 N MONOCYTE # (test code = MO#) 0.7 K/mm3 0.3-1.1 N EOSINOPHIL # (test code = EO#) 0.6 K/mm3 0.0-0.4 H BASOPHIL # (test code = BA#) 0.0 K/mm3 0.0-0.1 N MANUAL DIFF REQUIRED (test code = NO DIFF/SCN CRITERIA MDIFF) GLUCOSE BEDSIDE [id number] 21:04:00 Test Item Value Reference Range Interpretation Comments GLUCOSE BEDSIDE TESTING (test code 121 mg/dL 70-110 H = GLUBED) GLUCOSE BEDSIDE [id number] 16:40:00 Test Item Value Reference Range Interpretation Comments GLUCOSE BEDSIDE TESTING (test code = 88 mg/dL 70-110 N GLUBED) GLUCOSE BEDSIDE [id number] 11:27:00 Test Item Value Reference Range Interpretation Comments GLUCOSE BEDSIDE TESTING (test code 104 mg/dL 70-110 N = GLUBED) GLUCOSE BEDSIDE [id number] 08:18:00 Test Item Value Reference Range Interpretation Comments GLUCOSE BEDSIDE TESTING (test code = 83 mg/dL 70-110 N GLUBED) GLUCOSE BEDSIDE [id number] 21:18:00 Test Item Value Reference Range Interpretation Comments GLUCOSE BEDSIDE TESTING (test code = 98 mg/dL 70-110 N GLUBED) CBC W/AUTO [id number] 11:04:00 Test Item Value Reference Range Interpretation Comments WHITE BLOOD CELL (test 6.7 K/mm3 3.5-11.0 N code = WBC) RED BLOOD CELL (test 2.94 M/mm3 4.70-6.10 L code = RBC) HEMOGLOBIN (test code 9.0 G/DL 10.4-14.9 L = HGB) HEMATOCRIT (test code 27.0 % 31.5-44.1 L = HCT) MEAN CELL VOLUME (test 91.8 Fl 84.5-98.6 N code = MCV) MEAN CELL HGB (test 30.6 pg 27.0-34.2 N code = MCH) MEAN CELL HGB 33.3 G/DL 31.5-34.0 N CONCETRATION (test code = MCHC) RED CELL DISTRIBUTION 15.5 SD 11.5-14.5 H WIDTH (test code = RDW) PLATELET COUNT (test 185.0 K/mm3 150-450 N code = PLT) MEAN PLATELET VOLUME 9.40 fL 7.0-10.5 N (test code = MPV) NEUTROPHIL % (test 59.4 % 40-76 N code = NT%) LYMPHOCYTE % (test 16.5 % 20.5-51.1 L code = LY%) MONOCYTE % (test code 16.1 % 1.7-9.3 H = MO%) EOSINOPHIL % (test 7.7 % 0.0-6.0 H code = EO%) BASOPHIL % (test code 0.3 % 0.0-2.0 N = BA%) NEUTROPHIL # (test 3.95 K/mm3 1.8-7.6 N code = NT#) LYMPHOCYTE # (test 1.1 K/mm3 0.6-3.2 N code = LY#) MONOCYTE # (test code 1.1 K/mm3 0.3-1.1 N = MO#) EOSINOPHIL # (test 0.5 K/mm3 0.0-0.4 H code = EO#) BASOPHIL # (test code 0.0 K/mm3 0.0-0.1 N = BA#) MANUAL DIFF REQUIRED NO DIFF/SCN CRITERIA SLIDE R ADINW (test code = MDIFF) CONSISTA NT WITH AUTO DIFFERENTIAL. CBC W/AUTO [id number] 06:41:00 Test Item Value Reference Range Interpretation Comments WHITE BLOOD CELL (test code = 6.7 K/mm3 3.5-11.0 N WBC) RED BLOOD CELL (test code = RBC) 2.94 M/mm3 4.70-6.10 L HEMOGLOBIN (test code = HGB) 9.0 G/DL 10.4-14.9 L HEMATOCRIT (test code = HCT) 27.0 % 31.5-44.1 L MEAN CELL VOLUME (test code = 91.8 Fl 84.5-98.6 N MCV) MEAN CELL HGB (test code = MCH) 30.6 pg 27.0-34.2 N MEAN CELL HGB CONCETRATION (test 33.3 G/DL 31.5-34.0 N code = MCHC) RED CELL DISTRIBUTION WIDTH (test 15.5 SD 11.5-14.5 H code = RDW) PLATELET COUNT (test code = PLT) 185.0 K/mm3 150-450 N MEAN PLATELET VOLUME (test code = 9.40 fL 7.0-10.5 N MPV) NEUTROPHIL % (test code = NT%) % 40-76 N LYMPHOCYTE % (test code = LY%) % 20.5-51.1 L MONOCYTE % (test code = MO%) % 1.7-9.3 H EOSINOPHIL % (test code = EO%) % 0.0-6.0 H BASOPHIL % (test code = BA%) % 0.0-2.0 N NEUTROPHIL # (test code = NT#) K/mm3 1.8-7.6 N LYMPHOCYTE # (test code = LY#) K/mm3 0.6-3.2 N MONOCYTE # (test code = MO#) K/mm3 0.3-1.1 N EOSINOPHIL # (test code = EO#) K/mm3 0.0-0.4 H BASOPHIL # (test code = BA#) K/mm3 0.0-0.1 N MANUAL DIFF REQUIRED (test code = DIFF/SCN CRITERIA MDIFF) BASIC METABOLIC [id number] 06:10:00 Test Item Value Reference Range Interpretation Comments SODIUM (test code = NA) 141 mmol/L 134-147 N POTASSIUM (test code = 3.2 mmol/L 3.4-5.0 L K) CHLORIDE (test code = 111 mmol/L 100-108 H CL) CARBON DIOXIDE (test 28 mmol/L 21-32 N code = CO2) ANION GAP (test code = 2.0 GAP calc 4.0-15.0 L GAP) GLUCOSE (test code = 79 MG/DL 70-110 N GLU) BLOOD UREA NITROGEN 4 MG/DL 7-18 L (test code = BUN) GLOMERULAR FILTRATION >=60 max estimate >60 RATE (test code = GFR) estGFR CREATININE (test code = 0.6 MG/DL 0.6-1.0 N CREAT) CALCIUM (test code = CA) 8.7 MG/DL 8.5-10.1 N GLUCOSE BEDSIDE [id number] 20:32:00 Test Item Value Reference Range Interpretation Comments GLUCOSE BEDSIDE TESTING (test code = 79 mg/dL 70-110 N GLUBED) GLUCOSE BEDSIDE [id number] 17:02:00 Test Item Value Reference Range Interpretation Comments GLUCOSE BEDSIDE TESTING (test code 119 mg/dL 70-110 H = GLUBED) GLUCOSE BEDSIDE [id number] 12:45:00 Test Item Value Reference Range Interpretation Comments GLUCOSE BEDSIDE TESTING (test code = 73 mg/dL 70-110 N GLUBED) - CT HEAD/BRAIN W/O [id number] 11:30:00 Name: KEYSHA MEJIA [facility] : 1935 Age/S: 83 / F [id number] [address] [place] Unit #: [id number] Loc: [place] [address] Phys: Reyes Pascual MD Acct: [id number] Dis Date: Status: ADM IN PHONE #: [phone] Exam Date: 01/22/2019 1107 FAX #: Reason: Confusion EXAMS: CPT: [id number] CT HEAD/BRAIN W/O CONT [id number] EXAM: - CTHEAD/BRAIN W/O CONT LOCATION: C3 HISTORY: 83 years-year old Female with Confusion TECHNIQUE: Computerized tomography images from the skull base to the lit leo were obtained. Coronal and sagittal reformatted images are provided. This exam was performed according to our departmental dose- optimization program, which includes automated exposure control, adjustment of the mA and/or kV according to patient size and/or use of iterative reconstruction technique COMPARISON: None FINDINGS: Brain: The brain parenchymal architecture is unremarkable. The brain parenchyma is age appropriate. There is no evidence of an acute territorial infarct. Hemorrhage: There is no CT evidence of acute intracranial hemorrhage. Mass/edema: There is no CT evidence of mass effect, midline shift, or parenchymal edema. Ventricles: There is no evidence of hydrocephalus. Bones: There is no evidence of acute displaced calvarial fracture. Sinuses: The visualized portions of the paranasal sinuses and mastoid air cells are free of significant opacification. Other/Soft Tissues: Unremarkable. IMPRESSION: 1. No CT evidence of acute intracranial abnormality. PAGE 1 Signed Report (CONTINUED) Name: KEYSHA MEJIA [facility] : 1935 Age/S: 83 / F [address] [address] [place] Unit #: [id number] Loc: [place] [address] Phys: Reyes Pascual MD Acct: [id number] Dis Date: Status: ADM IN PHONE #: [phone] Exam Date:01/22/2019 1105 FAX #: Reason: Confusion EXAMS: CPT: [id number] CT HEAD/BRAIN W/O CONT [id number] <Continued> at 1130 Reported and signed by: SAMI GUZMÁN M.D. CC: Reyes Pascual MD Technologist:Harsh Covington RT(R)(CT)(MRI) CTDI:DLP: Trnscb Date/Time: 01/22/2019 (1130) [id number] Orig Print D/T: S: 01/22/2019 (1140) PAGE 2 Signed ReportGLUCOSE BEDSIDE [id number] 08:18:00 Test Item Value Reference Range Interpretation Comments GLUCOSE BEDSIDE TESTING (test code = 69 mg/dL 70-110 L GLUBED) BASIC METABOLIC [id number] 07:29:00 Test Item Value Reference Range Interpretation Comments SODIUM (test code = NA) 143 mmol/L 134-147 N POTASSIUM (test code = 3.4 mmol/L 3.4-5.0 N K) CHLORIDE (test code = 112 mmol/L 100-108 H CL) CARBON DIOXIDE (test 25 mmol/L 21-32 N code = CO2) ANION GAP (test code = 6.0 GAP calc 4.0-15.0 N GAP) GLUCOSE (test code = 76 MG/DL 70-110 N GLU) BLOOD UREA NITROGEN 6 MG/DL 7-18 L (test code = BUN) GLOMERULAR FILTRATION >=60 max estimate >60 RATE (test code = GFR) estGFR CREATININE (test code = 0.7 MG/DL 0.6-1.0 N CREAT) CALCIUM (test code = CA) 8.4 MG/DL 8.5-10.1 L CBC W/AUTO [id number] 07:04:00 Test Item Value Reference Range Interpretation Comments WHITE BLOOD CELL (test code = 6.5 K/mm3 3.5-11.0 N WBC) RED BLOOD CELL (test code = RBC) 3.26 M/mm3 4.70-6.10 L HEMOGLOBIN (test code = HGB) 10.0 G/DL 10.4-14.9 L HEMATOCRIT (test code = HCT) 30.1 % 31.5-44.1 L MEAN CELL VOLUME (test code = 92.3 Fl 84.5-98.6 N MCV) MEAN CELL HGB (test code = MCH) 30.7 pg 27.0-34.2 N MEAN CELL HGB CONCETRATION (test 33.2 G/DL 31.5-34.0 N code = MCHC) RED CELL DISTRIBUTION WIDTH (test 15.7 SD 11.5-14.5 H code = RDW) PLATELET COUNT (test code = PLT) 168.0 K/mm3 150-450 N MEAN PLATELET VOLUME (test code = 9.60 fL 7.0-10.5 N MPV) NEUTROPHIL % (test code = NT%) 61.5 % 40-76 LYMPHOCYTE % (test code = LY%) 15.5 % 20.5-51.1 L MONOCYTE % (test code = MO%) 16.7 % 1.7-9.3 H EOSINOPHIL % (test code = EO%) 5.8 % 0.0-6.0 N BASOPHIL % (test code = BA%) 0.5 % 0.0-2.0 N NEUTROPHIL # (test code = NT#) 4.00 K/mm3 1.8-7.6 N LYMPHOCYTE # (test code = LY#) 1.0 K/mm3 0.6-3.2 N MONOCYTE # (test code = MO#) 1.1 K/mm3 0.3-1.1 N EOSINOPHIL # (test code = EO#) 0.4 K/mm3 0.0-0.4 N BASOPHIL # (test code = BA#) 0.0 K/mm3 0.0-0.1 N MANUAL DIFF REQUIRED (test code = NO DIFF/SCN CRITERIA MDIFF) - XR SWLW FUNC W/C [id number] 12:20:00 Name: KEYSHA MEJIAland : 1935 Age/S: 83 / F [address] [address] [place] Unit #: [id number] Loc: [place] [address] Phys: Reyes Pascual MD Acct: [id number] Dis Date: Status: ADM IN PHONE #: [phone] Exam Date: 01/21/2019 1150 FAX #: Reason: SPEECH EVAL EXAMS: CPT: [id number] XR SWLW FUNC W/C V [id number] Fluoro Time: 102 SEC DAP (Gy m2): Air Kerma (mGy): Examination: Modified barium swallow Location code: S17 Comparison: None Discussion: Clinical history is remarkable for evaluation. 126 seconds fluoroscopic time is utilized. Patient was administered various consistencies of barium, tolerated without complication. There is free spill is identified, minor residue. With larger boluses, there is flash penetration, becoming more prevalent with fatigue. Limited esophagram was performed demonstrating lack of a primary peristaltic stripping wave, tertiary contractions noted. Impression: Please refer to the dedicated speech pathology report. at 1220 Reported and signed by: Kenia Painting M.D. CC: Reyes Pascual MD PAGE 1 Signed Report Name: KEYSHA MEJIA [place] : 1935 Age/S: 83 / F [address] [address] [place] Unit #: [id number] Loc:[place] [address] Phys: Reyes Pascual MD Acct: [id number] Dis Date: Status: ADM IN PHONE #: [phone] Exam Date: 01/21/2019 1150 FAX #: Reason: SPEECH EVAL EXAMS: CPT: [id number] XR SWLW FUNC W/C V 20605 Fluoro Time: 102 SEC DAP (Gy m2): Air Kerma (mGy): <Continued> Technologist: RT Lionel(R)(MR) Trnscb Date/Time: 01/21/2019 (3690) [id number] Orig Print D/T: S: 01/21/2019 (1273) PAGE 2 Signed ReportJ[facility] W/AUTO [id number] 06:03:00 Test Item Value Reference Range Interpretation Comments WHITE BLOOD CELL (test 7.8 K/mm3 3.5-11.0 N code = WBC) RED BLOOD CELL (test 2.88 M/mm3 4.70-6.10 L code = RBC) HEMOGLOBIN (test code 8.9 G/DL 10.4-14.9 L = HGB) HEMATOCRIT (test code 26.9 % 31.5-44.1 L = HCT) MEAN CELL VOLUME (test 93.4 Fl 84.5-98.6 N code = MCV) MEAN CELL HGB (test 30.9 pg 27.0-34.2 N code = MCH) MEAN CELL HGB 33.1 G/DL 31.5-34.0 N CONCETRATION (test code = MCHC) RED CELL DISTRIBUTION 15.4 SD 11.5-14.5 H WIDTH (test code = RDW) PLATELET COUNT (test 128.0 K/mm3 150-450 L code = PLT) MEAN PLATELET VOLUME 9.30 fL 7.0-10.5 N (test code = MPV) NEUTROPHIL % (test 75.3 % 40-76 N code = NT%) LYMPHOCYTE % (test 6.9 % 20.5-51.1 L code = LY%) MONOCYTE % (test code 14.4 % 1.7-9.3 H = MO%) EOSINOPHIL % (test 3.1 % 0.0-6.0 N code = EO%) BASOPHIL % (test code 0.3 % 0.0-2.0 N = BA%) NEUTROPHIL # (test 5.90 K/mm3 1.8-7.6 N code = NT#) LYMPHOCYTE # (test 0.5 K/mm3 0.6-3.2 L code = LY#) MONOCYTE # (test code 1.1 K/mm3 0.3-1.1 N = MO#) EOSINOPHIL # (test 0.2 K/mm3 0.0-0.4 N code = EO#) BASOPHIL # (test code 0.0 K/mm3 0.0-0.1 N = BA#) MANUAL DIFF REQUIRED NO DIFF/SCN CRITERIA SLIDE Porfirio PENDLETON (test code = MDIFF) CONSISTA NT WITH AUTO DIFFERENTIAL. BASIC METABOLIC [id number] 05:47:00 Test Item Value Reference Range Interpretation Comments SODIUM (test code = NA) 143 mmol/L 134-147 N POTASSIUM (test code = 3.3 mmol/L 3.4-5.0 L K) CHLORIDE (test code = 114 mmol/L 100-108 H CL) CARBON DIOXIDE (test 24 mmol/L 21-32 N code = CO2) ANION GAP (test code = 5.0 GAP calc 4.0-15.0 N GAP) GLUCOSE (test code = 75 MG/DL 70-110 N GLU) BLOOD UREA NITROGEN 9 MG/DL 7-18 N (test code = BUN) GLOMERULAR FILTRATION >=60 max estimate >60 RATE (test code = GFR) estGFR CREATININE (test code = 0.7 MG/DL 0.6-1.0 N CREAT) CALCIUM (test code = CA) 7.8 MG/DL 8.5-10.1 L UA RFLX MICR CULT IF [id number] 20:17:00 Test Item Value Reference Range Interpretation Comments UA COLOR (test code = YELLOW discript YEL/STRAW COLU) UA APPEARANCE (test code CLEAR discript CLEAR = APPU) UA GLUCOSE DIPSTICK (test NEGATIVE mg/dL NEG code = DGLUU) UA BILIRUBIN DIPSTICK NEGATIVE mg/dL NEG (test code = BILU) UA KETONE DIPSTICK (test NEGATIVE mg/dL NEG code = KETU) UA SPECIFIC GRAVITY (test 1.010 SG 1.005-1.030 code = SGU) UA BLOOD DIPSTICK (test 2+ mg/DL NEG A code = DWAYNE) UA PH DIPSTICK (test code 6.0 pH UNITS 5.0-7.0 = BERNARD) UA PROTEIN DIPSTICK (test NEGATIVE mg/dL NEG code = PROU) UA UROBILINIOGEN DIPSTICK 1.0 mg/dL <2.0 (test code = URO) UA NITRITE DIPSTICK (test NEGATIVE SCREEN NEG code = ALDO) UA LEUKOCYTE ESTERASE 1+ Leuk/mcL NEGATIVE A DIPSTICK (test code = LEUU) UA WBC (test code = WBCU) 3-5 #WBC/HPF 0-3 A UA RBC (test code = RBCU) 1-3 #RBC/HPF 0-3 UA BACTERIA (test code = NONE SEEN /HPF NONE-TRACE BACU) UA SQUAMOUS CELLS (test NONE SEEN /HPF NONE code = SQU) UA CULTURE NEEDED? (test YES,WBC>10 & EPI<25 Culture CHK code = UACULT) Criteria SOURCE OF URINE: CLEAN CATCHIndication for culture: Sev. Sepsis-no other src Flank PainUA RFLX MICR CULT IF [id number] 20:04:00 Test Item Value Reference Range Interpretation Comments UA COLOR (test code = COLU) YELLOW discript YEL/STRAW UA APPEARANCE (test code = CLEAR discript CLEAR APPU) UA GLUCOSE DIPSTICK (test NEGATIVE mg/dL NEG code = DGLUU) UA BILIRUBIN DIPSTICK (test NEGATIVE mg/dL NEG code = BILU) UA KETONE DIPSTICK (test code NEGATIVE mg/dL NEG = KETU) UA SPECIFIC GRAVITY (test 1.010 SG 1.005-1.030 code = SGU) UA BLOOD DIPSTICK (test code 2+ mg/DL NEG A = DWAYNE) UA PH DIPSTICK (test code = 6.0 pH UNITS 5.0-7.0 BERNARD) UA PROTEIN DIPSTICK (test NEGATIVE mg/dL NEG code = PROU) UA UROBILINIOGEN DIPSTICK 1.0 mg/dL <2.0 (test code = URO) UA NITRITE DIPSTICK (test NEGATIVE SCREEN NEG code = ALDO) UA LEUKOCYTE ESTERASE 1+ Leuk/mcL NEGATIVE A DIPSTICK (test code = LEUU) UA CULTURE NEEDED? (test code Criteria Culture CHK = UACULT) SOURCE OF URINE: CLEAN CATCHIndication for culture: Sev. Sepsis-no other src Flank Pain- XR CHEST 1 [id number] 17:24:00 Name: KEYSHA MEJIA [facility] : 1935 Age/S: 83 / F [address] [address] [place] Unit #: [id number] Loc: [place] [address] Phys: Reyes Pascual MD Acct: [id number] Dis Date: Status: ADM IN PHONE #: [phone] Exam Date: 01/20/2019 1706 FAX #: Reason: SOB EXAMS: CPT: [id number] XR CHEST 1 V 45854 Fluoro Time: DAP (Gy m2): Air Kerma (mGy): Site ID: [id number] HISTORY: Shortnessof breath FINDINGS: The lungs are clear and normally expanded. Heart size and mediastinal contours are within normal limits, with left chest dual-chambe r pacer in place. Right IJ line terminates appropriately at the cavoatrial junction. No acute osseous finding. IMPRESSION: No acute cardiopulmonaryfinding. at 1724 Reported and signed by: Jordan Moran M.D. CC: Reyes Pascual MD PAGE 1 Signed Report Name: KEYSHA MEJIA [place] : 1935 Age/S: 83 / F [address] [address] [place] Unit #: [id number] Loc: [place] [address] Phys: Reyes Pascual MD Acct: [id number] Dis Date: Status: ADM IN PHONE #: [phone] Exam Date: 01/20/2019 1701 FAX #: Reason: SOB EXAMS: CPT: [id number] XR CHEST 1 V 73764 Fluoro Time: DAP (Gy m2): Air Kerma (mGy): <Continued> Technologist: Estefanía Couch RT(R)(CT) Trnscb Date/Time: 01/20/2019 (1724) [email or web address] Orig Print D/T: S: 01/20/2019 (1720) PAGE 2 Signed Report- FLUORO GUID CTRL ACC [id number] 10:55:00 Name: KEYSHA MEJIA [facility] : 1935 Age/S: 83 / F [address] [address] [place] Unit #: [id number] Loc: [place] [address] Phys: Reyes Pascual MD Acct: [id number] Dis Date: Status: ADM IN PHONE #: [phone] Exam Date: 01/19/2019 8200 FAX #: Reason: CENTRAL LINE FOR SEPTIC SHOCK EXAMS: CPT: [id number] FLUORO GUID CTRL ACC DEV 27998 Fluoro Time: DAP (Gy m2): Air Kerma (mGy): Examination: Ultrasound fluoroscopic guided right internal jugular central venous catheter placement Location code: S17 tag press operator: Dr. Jaimes Military Education Coordinator: None Sedation: None Anesthesia: 1% lidocaine locally Complications: None Discussion: Informed consent was obtained prior to the evaluation. Timeout was obtained. The area of concern was prepped and draped in the usual sterile fashion utilizing maximal sterile barrier technique. Preprocedural ultrasound confirms the presence of a right internal jugular central venous catheter. 1% lidocaine was infiltrated in the subcutaneous soft tissues overlying the jugular vein. Micropuncture was performed followed by placement of a coaxial dilator. 0.035 inch wire was subsequently advanced into the superior vena cava, confirmed fluoroscopically. Dermatotomy was advanced, serial dilation performed followed by placement of an internal jugular catheter. Location terminates at the cavoatrial junction, good position. Catheter was subsequently flushed and secured to the skin with suture.Tegaderm was subsequently placed. Dr. Jaimes was present during this procedure for a total of 20 minutes. Fluoroscopic time 6 seconds. Impression: Chest ultrasound fluoroscopic guided right internal jugular central venous catheter place ment. PAGE 1 Signed Report (CONTINUED) Name: KEYSHA MEJIA [facility] : 1935 Age/S: 83 / F [address] [facility] Unit #: [id number] Loc: [place] [address] Phys: Reyes Pascual MD Acct: [id number] Dis Date: Status: ADM IN PHONE #: [phone] Exam Date: 01/19/2019 9160 FAX #: Reason: CENTRAL LINE FOR SEPTIC SHOCK EXAMS: CPT: [id number] FLUORO GUID CTRL ACC DEV 71360 Fluoro Time: DAP (Gym2): Air Kerma (mGy): <Continued> at 1055 Reported and signed by: Kenia Painting M.D. CC: Melinda Pascual MD PAGE 2 Signed Report Name: KEYSHA MEJIA [facility] : 1935 Age/S:83 / F [address] [address] [place] Unit #: [id number] Loc: [place] [address] Phys: Reyes Pascual MD Acct: [id number] Dis Date: Status: ADM IN PHONE #: [phone] Exam Date: 01/19/2019 2351 FAX #: Reason: CENTRALLINE FOR SEPTIC SHOCK EXAMS: CPT: [id number] FLUORO GUID CTRL ACC DEV 82340 Fluoro Time: DAP (Gy m2): Air Kerma (mGy): <Continued> Technologist: Latoya Latif, RT(R) Trnscb Date/Time: 01/20/2019 (4039) [id number] Orig Print D/T: S: 01/20/2019 (6919) PAGE 3 Signed Report- [facility] [id number] 10:55:00 Name: KEYSHA MEJIA [facility] : 1935 Age/S: 83 / F [address] [facility] Unit #: [id number] Loc: [place] [address] Phys: Reyes Pascual MD Acct: [id number] Dis Date: Status: ADM IN PHONE #: [phone] Exam Date: 01/19/2019 2347 FAX #: Reason: septic shock EXAMS: CPT: [id number] [facility] ACCESS 69533 Examination: Ultrasound fluoroscopic guided right internal jugular central venous catheter placement Location code: S17 tag press operator: Dr. Jaimes Military Education Coordinator: None Sedation: None Anesthesia: 1% lidocaine locally Complications: None Discussion: Informed consent was obtained prior to the evaluation. Timeout was obtained. The area of concern was prepped and draped in the usual sterile fashion utilizing maximal sterile barrier technique. Preprocedural ultrasound confirms the presence of a right internal jugular central venous catheter. 1% lidocaine was infiltrated in the subcutaneous soft tissues overlying the jugular vein. Micropuncture was performed followed by placement of a coaxial dilator. 0.035 inch wire was subsequently advanced into the superior vena cava, confirmed fluoroscopically. Dermatotomy was advanced, serial dila tion performed followed by placement of an internal jugular catheter. Location terminates at the cavoatrial junction, good position. Catheter was subsequently flushed and secured to the skin with suture. Tegaderm was subsequently placed. Dr. Jaimes was present during this procedure for a total of 20 minutes. Fluoroscopic time 6 seconds. Impression: Chest ultrasound fluoroscopic guided right internal jugular central venous catheter placement. PAGE 1 Signed Report (CONTINUED) Name: KEYSHA MEJIA [place] : 1935 Age/S: 83 / F [address] [address] [place] Unit #: [id number] Loc: [place] [address] Phys: Reyes Pascual MD Acct: [id number] Dis Date: Status: ADM IN PHONE #: [phone] Exam Date: 01/19/2019 2346 FAX #: Reason: septic shock EXAMS: CPT: [id number] [facility] ACCESS 71185 <Continued> at 1055 Reported and signed by: Kenia Paitning M.D. CC: Reyes Pascual MD Technologist: Rosalind Munroe RDMS Trnscb Date/Time: 01/20/2019 (8428) [id number] PAGE 2 Signed Report Name: KEYSHA MEJAI [facility] : 1935 Age/S:83 / F [address] [facility] Unit #: [id number] Loc: [place] [address] Phys: Reyes Pascual MD Acct: [id number] Dis Date: Status: ADM IN PHONE #: [phone] Exam Date: 01/19/2019 234 FAX #: Reason: septicshock EXAMS: CPT: [id number] [facility] ACCESS 04885 <Continued> Orig Print D/T: S: 01/20/2019 (6093) Probe: PAGE 3 Signed ReportGLUCOSE BEDSIDE [id number] 05:52:00 Test Item Value Reference Range Interpretation Comments GLUCOSE BEDSIDE TESTING (test code = 62 mg/dL 70-110 L GLUBED) BASIC METABOLIC [id number] 05:42:00 Test Item Value Reference Range Interpretation Comments SODIUM (test code = NA) 143 mmol/L 134-147 N POTASSIUM (test code = 3.6 mmol/L 3.4-5.0 N K) CHLORIDE (test code = 114 mmol/L 100-108 H CL) CARBON DIOXIDE (test 24 mmol/L 21-32 N code = CO2) ANION GAP (test code = 5.0 GAP calc 4.0-15.0 N GAP) GLUCOSE (test code = 149 MG/DL 70-110 H GLU) BLOOD UREA NITROGEN 21 MG/DL 7-18 H (test code = BUN) GLOMERULAR FILTRATION >=60 max estimate >60 RATE (test code = GFR) estGFR CREATININE (test code = 0.9 MG/DL 0.6-1.0 N CREAT) CALCIUM (test code = CA) 7.6 MG/DL 8.5-10.1 L CBC W/AUTO [id number] 05:33:00 Test Item Value Reference Range Interpretation Comments WHITE BLOOD CELL (test code = 11.0 K/mm3 3.5-11.0 N WBC) RED BLOOD CELL (test code = RBC) 2.93 M/mm3 4.70-6.10 L HEMOGLOBIN (test code = HGB) 9.1 G/DL 10.4-14.9 L HEMATOCRIT (test code = HCT) 27.6 % 31.5-44.1 L MEAN CELL VOLUME (test code = 94.2 Fl 84.5-98.6 N MCV) MEAN CELL HGB (test code = MCH) 31.1 pg 27.0-34.2 N MEAN CELL HGB CONCETRATION (test 33.0 G/DL 31.5-34.0 N code = MCHC) RED CELL DISTRIBUTION WIDTH (test 15.1 SD 11.5-14.5 H code = RDW) PLATELET COUNT (test code = PLT) 104.0 K/mm3 150-450 L MEAN PLATELET VOLUME (test code = 10.00 fL 7.0-10.5 N MPV) NEUTROPHIL % (test code = NT%) 79.8 % 40-76 H LYMPHOCYTE % (test code = LY%) 8.0 % 20.5-51.1 L MONOCYTE % (test code = MO%) 11.0 % 1.7-9.3 H EOSINOPHIL % (test code = EO%) 1.0 % 0.0-6.0 N BASOPHIL % (test code = BA%) 0.2 % 0.0-2.0 N NEUTROPHIL # (test code = NT#) 8.81 K/mm3 1.8-7.6 H LYMPHOCYTE # (test code = LY#) 0.9 K/mm3 0.6-3.2 N MONOCYTE # (test code = MO#) 1.2 K/mm3 0.3-1.1 H EOSINOPHIL # (test code = EO#) 0.1 K/mm3 0.0-0.4 N BASOPHIL # (test code = BA#) 0.0 K/mm3 0.0-0.1 N MANUAL DIFF REQUIRED (test code = NO DIFF/SCN CRITERIA MDIFF) PROTHROMBIN [id number] 23:25:00 Test Item Value Reference Range Interpretation Comments PT PATIENT (test code = PTP) 13.1 SECONDS 9.3-12.9 H INTERNATIONAL NORMAL RATIO 1.14 INR Unit 0.8-1.2 N (test code = INR) THROMBOPLASTIN TIME [id number] 23:25:00 Test Item Value Reference Range Interpretation Comments THROMBOPLASTIN TIME PARTIAL 25.1 SECONDS 26-35 L (test code = PTT) UA RFLX MICR CULT IF [id number] 16:01:00 Test Item Value Reference Range Interpretation Comments UA COLOR (test code = YELLOW discript YEL/STRAW COLU) UA APPEARANCE (test code SLIGHTLY CLOUDY CLEAR = APPU) discript UA GLUCOSE DIPSTICK (test NEGATIVE mg/dL NEG code = DGLUU) UA BILIRUBIN DIPSTICK NEGATIVE mg/dL NEG (test code = BILU) UA KETONE DIPSTICK (test TRACE mg/dL NEG code = KETU) UA SPECIFIC GRAVITY (test 1.010 SG 1.005-1.030 code = SGU) UA BLOOD DIPSTICK (test 2+ mg/DL NEG A code = DWAYNE) UA PH DIPSTICK (test code 6.0 pH UNITS 5.0-7.0 = BERNARD) UA PROTEIN DIPSTICK (test 1+ mg/dL NEG A code = PROU) UA UROBILINIOGEN DIPSTICK 0.2 mg/dL <2.0 (test code = URO) UA NITRITE DIPSTICK (test NEGATIVE SCREEN NEG code = ALDO) UA LEUKOCYTE ESTERASE 3+ Leuk/mcL NEGATIVE A DIPSTICK (test code = LEUU) UA WBC (test code = WBCU) 30-40 #WBC/HPF 0-3 A UA RBC (test code = RBCU) 1-3 #RBC/HPF 0-3 UA BACTERIA (test code = 1+ /HPF NONE-TRACE A BACU) UA SQUAMOUS CELLS (test TRACE /HPF NONE code = SQU) UA RENAL CELLS (test code TRACE /HPF NONE SEEN A = SAMMIE) UA CULTURE NEEDED? (test YES,WBC>10 & EPI<25 Culture CHK code = UACULT) Criteria SOURCE OF URINE: CLEAN CATCHIndication for culture: Dysuria/FrequencyUA RFLX MICR CULT IF [id number] 15:49:00 Test Item Value Reference Range Interpretation Comments UA COLOR (test code = YELLOW discript YEL/STRAW COLU) UA APPEARANCE (test code SLIGHTLY CLOUDY CLEAR = APPU) discript UA GLUCOSE DIPSTICK (test NEGATIVE mg/dL NEG code = DGLUU) UA BILIRUBIN DIPSTICK NEGATIVE mg/dL NEG (test code = BILU) UA KETONE DIPSTICK (test TRACE mg/dL NEG code = KETU) UA SPECIFIC GRAVITY (test 1.010 SG 1.005-1.030 code = SGU) UA BLOOD DIPSTICK (test 2+ mg/DL NEG A code = DWAYNE) UA PH DIPSTICK (test code 6.0 pH UNITS 5.0-7.0 = BERNARD) UA PROTEIN DIPSTICK (test 1+ mg/dL NEG A code = PROU) UA UROBILINIOGEN DIPSTICK 0.2 mg/dL <2.0 (test code = URO) UA NITRITE DIPSTICK (test NEGATIVE SCREEN NEG code = ALDO) UA LEUKOCYTE ESTERASE 3+ Leuk/mcL NEGATIVE A DIPSTICK (test code = LEUU) UA CULTURE NEEDED? (test Criteria Culture CHK code = UACULT) SOURCE OF URINE: CLEAN CATCHIndication for culture: Dysuria/Frequency COMPREHENSIVE METABOLIC [id number] 15:38:00 Test Item Value Reference Range Interpretation Comments SODIUM (test code = NA) 140 mmol/L 134-147 N POTASSIUM (test code = K) 4.4 mmol/L 3.4-5.0 N CHLORIDE (test code = CL) 108 mmol/L 100-108 N CARBON DIOXIDE (test code = CO2) 26 mmol/L 21-32 N ANION GAP (test code = GAP) 6.0 GAP calc 4.0-15.0 N GLUCOSE (test code = GLU) 68 MG/DL 70-110 L BLOOD UREA NITROGEN (test code = 26 MG/DL 7-18 H BUN) GLOMERULAR FILTRATION RATE (test 51 estGFR >60 L code = GFR) CREATININE (test code = CREAT) 1.1 MG/DL 0.6-1.0 H TOTAL PROTEIN (test code = PROT) 6.5 G/DL 6.4-8.2 N ALBUMIN (test code = ALB) 2.9 G/DL 3.4-5.0 L GLOBULIN (test code = GLOB) 3.6 GM/dL ALBUMIN/GLOBULIN RATIO (test 0.8 RATIO 1.2-2.2 L code = A/G) CALCIUM (test code = CA) 9.1 MG/DL 8.5-10.1 N BILIRUBIN TOTAL (test code = 0.70 MG/DL 0.2-1.2 N BILT) SGOT/AST (test code = AST) 44 Unit/L 15-37 H SGPT/ALT (test code = ALT) 35 Unit/L 12-78 N ALKALINE PHOSPHATASE TOTAL (test 66 Unit/L 45-117 N code = ALKP) COMPREHENSIVE METABOLIC [id number] 15:22:00 Test Item Value Reference Range Interpretation Comments SODIUM (test code = NA) 140 mmol/L 134-147 N POTASSIUM (test code = K) 4.4 mmol/L 3.4-5.0 N CHLORIDE (test code = CL) 108 mmol/L 100-108 N CARBON DIOXIDE (test code = CO2) 26 mmol/L 21-32 N ANION GAP (test code = GAP) 6.0 GAP calc 4.0-15.0 N GLUCOSE (test code = GLU) 68 MG/DL 70-110 L BLOOD UREA NITROGEN (test code = 26 MG/DL 7-18 H BUN) GLOMERULAR FILTRATION RATE (test estGFR >60 code = GFR) CREATININE (test code = CREAT) MG/DL 0.6-1.0 TOTAL PROTEIN (test code = PROT) G/DL 6.4-8.2 ALBUMIN (test code = ALB) G/DL 3.4-5.0 GLOBULIN (test code = GLOB) GM/dL ALBUMIN/GLOBULIN RATIO (test RATIO 1.2-2.2 code = A/G) CALCIUM (test code = CA) 9.1 MG/DL 8.5-10.1 N BILIRUBIN TOTAL (test code = MG/DL 0.2-1.2 BILT) SGOT/AST (test code = AST) Unit/L 15-37 SGPT/ALT (test code = ALT) Unit/L 12-78 ALKALINE PHOSPHATASE TOTAL (test Unit/L 45-117 code = ALKP) - XR CHEST 1 [id number] 15:13:00 Name: KEYSHA MEJIA [facility] : 1935 Age/S: 83 / F [address] [address] [place] Unit #: [id number] Loc: [place] [address] Phys: Sven Ortiz MD Acct: [id number] Dis Date: Status: PRE ER PHONE #: [phone] Exam Date: 01/19/2019 1500 FAX #: Reason: Suspected Sepsis EXAMS: CPT: [id number] XR CHEST 1 V 94309 Fluoro Time: DAP (Gy m2): Air Kerma (mGy): LOCATION: T18 EXAM: CHEST 1 VIEW INDICATION: Suspected Sepsis COMPARISON: Chest x-ray June 10, 2013 TECHNIQUE: AP chest radiograph. FINDINGS: Bilateral perihilar infiltrateswith peribronchial cuffing. No pleural effusion is seen. No focal consolidation is identified. Satisfactory position of left AICD. No pneumothorax. This is new from the previous exam.Heart is normal in size. Bones and peripheral soft tissues are unremarkable. IMPRESSION: Bowel perihilar infiltrates with peribronchial cuffing concerning for bronchitis versus bronchiectasis in the proper clinical setting. No focal pneumonia. at 1513 Reported and signed by: Edenilson Brown M.D. CC: Sven Ortiz MD PAGE 1 Signed Report Name: KEYSHA MEJIA [facility] : 1935 Age/S: 83 / F [id number] [address] [place] Unit #: [id number] Loc: [place] [address] Phys: Sven Ortiz MD Acct: [id number] Dis Date: Status: PRE ER PHONE #: [phone] Exam Date: 01/19/2019 1500 FAX #: Reason: Suspected Sepsis EXAMS: CPT: [id number] XR CHEST 1 V 55800 Fluoro Time: DAP (Gy m2): Air Kerma (mGy): <Continued> Technologist: Mariana Landon RT(R) Trnscb Date/Time: 01/19/2019 (1511) [email or web address] Orig Print D/T: S: 01/19/2019 (0312) PAGE 2 Signed ReportCBC W/AUTO [id number] 15:07:00 Test Item Value Reference Range Interpretation Comments WHITE BLOOD CELL (test code = 11.9 K/mm3 3.5-11.0 H WBC) RED BLOOD CELL (test code = RBC) 3.74 M/mm3 4.70-6.10 L HEMOGLOBIN (test code = HGB) 11.4 G/DL 10.4-14.9 N HEMATOCRIT (test code = HCT) 34.9 % 31.5-44.1 N MEAN CELL VOLUME (test code = 93.3 Fl 84.5-98.6 N MCV) MEAN CELL HGB (test code = MCH) 30.5 pg 27.0-34.2 N MEAN CELL HGB CONCETRATION (test 32.7 G/DL 31.5-34.0 N code = MCHC) RED CELL DISTRIBUTION WIDTH (test 15.0 SD 11.5-14.5 H code = RDW) PLATELET COUNT (test code = PLT) 135.0 K/mm3 150-450 L MEAN PLATELET VOLUME (test code = 10.00 fL 7.0-10.5 N MPV) NEUTROPHIL % (test code = NT%) 90.9 % 40-76 H LYMPHOCYTE % (test code = LY%) 5.5 % 20.5-51.1 L MONOCYTE % (test code = MO%) 2.9 % 1.7-9.3 N EOSINOPHIL % (test code = EO%) 0.5 % 0.0-6.0 N BASOPHIL % (test code = BA%) 0.2 % 0.0-2.0 N NEUTROPHIL # (test code = NT#) 10.82 K/mm3 1.8-7.6 H LYMPHOCYTE # (test code = LY#) 0.7 K/mm3 0.6-3.2 N MONOCYTE # (test code = MO#) 0.4 K/mm3 0.3-1.1 N EOSINOPHIL # (test code = EO#) 0.1 K/mm3 0.0-0.4 N BASOPHIL # (test code = BA#) 0.0 K/mm3 0.0-0.1 N MANUAL DIFF REQUIRED (test code = NO DIFF/SCN CRITERIA MDIFF) TROPONIN I [id number] 15:07:00 Test Item Value Reference Range Interpretation Comments TROPONIN I RAPID 0.02 ng/mL 0.00-0.08 N - The use o f serial (test code = sampling and te sting TROPIRAP) protocol is a recommended pra ctice- An elevated tro ponin level alone is often not sufficient for diagnosis of my ocardial infarction. LACTIC ACID [id number] 14:59:00 Test Item Value Reference Range Interpretation Comments LACTIC ACID POC (test code = 1.91 MMOL/L 0.90-1.70 H LACTP) RAD, CHEST, 2 [id number] 11:22:00Reason for Exam:->i48.0, i10, e78.5, i34.8, z79.899, r06.89FINAL REPORT PA and Lateral views of the chest dated 08/18/2018 COMPARISON: February 03, 2018 Clinical information: i48.0, i10, e78.5, i34.8, z79.899, r06.89 Comment: Heart is normal in size. 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 AICD remains in place. Pulmonary vasculature is unremarkable. Lungs are clear. No pulmonary infiltrate or pleural effusion is present. Impression: Stable interval examination of the chest. Signed: Kenia Morrison MDReport Verified Date/Time: 08/18/2018 11:22:44 Reading Location: [address] Radiology Reading Room XR Chest 2 [id number] 11:22:00Interface, External Ris In - 08/18/2018 11:24 AM CDTFINAL REPORT PA and Lateral views of the chest dated 08/18/2018 COMPARISON: February 03, 2018 Clinical information: i48.0, i10, e78.5, i34.8, z79.899, r06.89 Comment: Heart is normal in size. 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 AICD remains in place. Pulmonary vasculature is unremarkable. Lungs are clear. No pulmonary infiltrate or pleural effusion is present. Impression: Stable interval examination of the chest. Signed: Kenia MorrisonMDReport Verified Date/Time: 08/18/2018 11:22:44 Reading Location: [address] [facility] [id number] 13:44:00Reason for Exam:->[id number] REPORT PA and Lateral views of the chest dated 02/03/2018 COMPARISON: Niranjan altagracia 2017 Clinical information: i10 Comment: Heart is in the upper limits of normal in size. 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 AICD remains in place. Pulmonary vasculature is unremarkable. Lungs are clear. No pulmonary infiltrate or pleural effusion is present. Impression: No active cardiopulmonary disease or interval change. Signed: Kenia Morrison MDReport Verified Date/Time: 02/03/2018 13:44:13 Reading Location: [address] Radiology Reading Room Electronically signed by: KENIA MORRISON M.D. on02/03/2018 01:44 PMBASIC METABOLIC PANEL 2017-10-23 06:05:00 Test Item Value Reference Range Interpretation Comments SODIUM (BEAKER) 136 meq/L 136-145 (test code = 381) POTASSIUM (BEAKER) 3.6 meq/L 3.5-5.1 (test code = 379) CHLORIDE (BEAKER) 107 meq/L 98-107 (test code = 382) CO2 (BEAKER) (test 25 meq/L -29 code = 355) BLOOD UREA NITROGEN 9 mg/dL 7-21 (BEAKER) (test code = 354) CREATININE (BEAKER) 0.68 mg/dL 0.57-1.25 (test code = 358) GLUCOSE RANDOM 83 mg/dL 70-105 (BEAKER) (test code = 652) CALCIUM (BEAKER) 8.5 mg/dL 8.4-10.2 (test code = 697) EGFR (BEAKER) (test 83 mL/min/1.73 ESTIMA SHALONDA GFR IS code = 1092) sq m NOT ACCURATE CREATININE CLEARANCE IN PREDICTING GLOMERULAR FILTRATION RATE . ESTIMATED GFR I S NOT APPLICABLE FOR DIALYSIS PATIEN TS. CBC (HEMOGRAM ONLY)2017-10-23 05:35:00 Test Item Value Reference Range Interpretation Comments WHITE BLOOD CELL COUNT (BEAKER) 8.1 K/ L 3.5-10.5 (test code = 775) RED BLOOD CELL COUNT (BEAKER) 2.53 M/ L 3.93-5.22 L (test code = 761) HEMOGLOBIN (BEAKER) (test code = 7.8 GM/DL 11.2-15.7 L 410) HEMATOCRIT (BEAKER) (test code = 25.0 % 34.1-44.9 L 411) MEAN CORPUSCULAR VOLUME (BEAKER) 98.8 fL 79.4-94.8 H (test code = 753) MEAN CORPUSCULAR HEMOGLOBIN 30.8 pg 25.6-32.2 (BEAKER) (test code = 751) MEAN CORPUSCULAR HEMOGLOBIN CONC 31.2 GM/DL 32.2-35.5 L (BEAKER) (test code = 752) RED CELL DISTRIBUTION WIDTH 14.4 % 11.7-14.4 (BEAKER) (test code = 412) PLATELET COUNT (BEAKER) (test 189 K/CU MM 150-450 code = 756) MEAN PLATELET VOLUME (BEAKER) 9.8 fL 9.4-12.3 (test code = 754) NUCLEATED RED BLOOD CELLS 0 /100 WBC 0-0 (BEAKER) (test code = 413) CBC (HEMOGRAM ONLY)2017-10-22 06:52:00 Test Item Value Reference Range Interpretation Comments WHITE BLOOD CELL COUNT (BEAKER) 6.7 K/ L 3.5-10.5 (test code = 775) RED BLOOD CELL COUNT (BEAKER) 2.72 M/ L 3.93-5.22 L (test code = 761) HEMOGLOBIN (BEAKER) (test code = 8.4 GM/DL 11.2-15.7 L 410) HEMATOCRIT (BEAKER) (test code = 26.8 % 34.1-44.9 L 411) MEAN CORPUSCULAR VOLUME (BEAKER) 98.5 fL 79.4-94.8 H (test code = 753) MEAN CORPUSCULAR HEMOGLOBIN 30.9 pg 25.6-32.2 (BEAKER) (test code = 751) MEAN CORPUSCULAR HEMOGLOBIN CONC 31.3 GM/DL 32.2-35.5 L (BEAKER) (test code = 752) RED CELL DISTRIBUTION WIDTH 14.4 % 11.7-14.4 (BEAKER) (test code = 412) PLATELET COUNT (BEAKER) (test 147 K/CU MM 150-450 L code = 756) MEAN PLATELET VOLUME (BEAKER) 11.0 fL 9.4-12.3 (test code = 754) NUCLEATED RED BLOOD CELLS 0 /100 WBC 0-0 (BEAKER) (test code = 413) TISSUE [id number] 10:17:00Surgical Pathology Report Case: [id number] Authorizing Provider: Nan Velasco, Collected: 10/17/2017 0837 Ordering Location: [facility] Received: 10/17/2017 0952 SERVICES Pathologist: Arianna Saldana MD Specimen: Gallbladder GALLBLADDER, CHOLECYSTECTOMY: - CHRONIC CHOLECYSTITIS WITH CHOLELITHIASIS Signing Pathologist Direct Phone Line: [phone] signed by Arianna Saldana MD on 10/21/2017 at 10:17 [id number] of gallbladder without cholecystitis without obstruction Gallbladder The specimen is received in formalin-filledcontainer labeled with the patient's information and labeled "gallbladder". It consists of a previously opened gallbladder measuring 7.5 x 3 cm with a gallbladder wall thickness up to 0.2 cm. The gallbladder lumen is filled with santos thin fluid and multiple black gallstone fragments measuring up to 0.5cm. The mucosa is santos and velvety with no abnormality.Section code: A1, margin en face; A2, gallbladder wall. CG/ewPerformed.HEPATIC FUNCTION [id number] 07:12:00 Test Item Value Reference Range Interpretation Comments TOTAL PROTEIN (BEAKER) (test code = 4.6 gm/dL 6.0-8.3 L 770) ALBUMIN (BEAKER) (test code = 1145) 2.6 g/dL 3.5-5.0 L BILIRUBIN TOTAL (BEAKER) (test code 0.7 mg/dL 0.2-1.2 = 377) BILIRUBIN DIRECT (BEAKER) (test 0.4 mg/dL 0.1-0.5 code = 706) ALKALINE PHOSPHATASE (BEAKER) (test 39 U/L 40-150 L code = 346) AST (SGOT) (BEAKER) (test code = 32 U/L 5-34 353) ALT (SGPT) (BEAKER) (test code = 31 U/L 6-55 347) BASIC METABOLIC [id number] 07:12:00 Test Item Value Reference Range Interpretation Comments SODIUM (BEAKER) 138 meq/L 136-145 (test code = 381) POTASSIUM (BEAKER) 3.2 meq/L 3.5-5.1 L (test code = 379) CHLORIDE (BEAKER) 108 meq/L 98-107 H (test code = 382) CO2 (BEAKER) (test 27 meq/L 22-29 code = 355) BLOOD UREA NITROGEN 6 mg/dL 7-21 L (BEAKER) (test code = 354) CREATININE (BEAKER) 0.66 mg/dL 0.57-1.25 (test code = 358) GLUCOSE RANDOM 80 mg/dL 70-105 (BEAKER) (test code = 652) CALCIUM (BEAKER) 8.5 mg/dL 8.4-10.2 (test code = 697) EGFR (BEAKER) (test 86 mL/min/1.73 ESTIMA SHALONDA GFR IS code = 1092) sq m NOT ACCURATE CREATININE CLEARANCE IN PREDICTING GLOMERULAR FILTRATION RATE . ESTIMATED GFR I S NOT APPLICABLE FOR DIALYSIS PATIEN TS. CBC (HEMOGRAM ONLY)2017-10-21 06:48:00 Test Item Value Reference Range Interpretation Comments WHITE BLOOD CELL COUNT (BEAKER) 6.6 K/ L 3.5-10.5 (test code = 775) RED BLOOD CELL COUNT (BEAKER) 2.63 M/ L 3.93-5.22 L (test code = 761) HEMOGLOBIN (BEAKER) (test code = 8.1 GM/DL 11.2-15.7 L 410) HEMATOCRIT (BEAKER) (test code = 25.7 % 34.1-44.9 L 411) MEAN CORPUSCULAR VOLUME (BEAKER) 97.7 fL 79.4-94.8 H (test code = 753) MEAN CORPUSCULAR HEMOGLOBIN 30.8 pg 25.6-32.2 (BEAKER) (test code = 751) MEAN CORPUSCULAR HEMOGLOBIN CONC 31.5 GM/DL 32.2-35.5 L (BEAKER) (test code = 752) RED CELL DISTRIBUTION WIDTH 14.3 % 11.7-14.4 (BEAKER) (test code = 412) PLATELET COUNT (BEAKER) (test 145 K/CU MM 150-450 L code = 756) MEAN PLATELET VOLUME (BEAKER) 10.2 fL 9.4-12.3 (test code = 754) NUCLEATED RED BLOOD CELLS 0 /100 WBC 0-0 (BEAKER) (test code = 413) HEPATIC FUNCTION [id number] 07:05:00 Test Item Value Reference Range Interpretation Comments TOTAL PROTEIN (BEAKER) (test code = 4.5 gm/dL 6.0-8.3 L 770) ALBUMIN (BEAKER) (test code = 1145) 2.7 g/dL 3.5-5.0 L BILIRUBIN TOTAL (BEAKER) (test code 1.0 mg/dL 0.2-1.2 = 377) BILIRUBIN DIRECT (BEAKER) (test 0.5 mg/dL 0.1-0.5 code = 706) ALKALINE PHOSPHATASE (BEAKER) (test 37 U/L 40-150 L code = 346) AST (SGOT) (BEAKER) (test code = 34 U/L 5-34 353) ALT (SGPT) (BEAKER) (test code = 34 U/L 6-55 347) BASIC METABOLIC [id number] 07:05:00 Test Item Value Reference Range Interpretation Comments SODIUM (BEAKER) 137 meq/L 136-145 (test code = 381) POTASSIUM (BEAKER) 3.5 meq/L 3.5-5.1 (test code = 379) CHLORIDE (BEAKER) 109 meq/L 98-107 H (test code = 382) CO2 (BEAKER) (test 27 meq/L 22-29 code = 355) BLOOD UREA NITROGEN 6 mg/dL 7-21 L (BEAKER) (test code = 354) CREATININE (BEAKER) 0.65 mg/dL 0.57-1.25 (test code = 358) GLUCOSE RANDOM 92 mg/dL 70-105 (BEAKER) (test code = 652) CALCIUM (BEAKER) 8.3 mg/dL 8.4-10.2 L (test code = 697) EGFR (BEAKER) (test 88 mL/min/1.73 ESTIMA SHALONDA GFR IS code = 1092) sq m NOT ACCURATE CREATININE CLEARANCE IN PREDICTING GLOMERULAR FILTRATION RATE . ESTIMATED GFR I S NOT APPLICABLE FOR DIALYSIS PATIEN TS. CBC (HEMOGRAM ONLY)2017-10-20 06:20:00 Test Item Value Reference Range Interpretation Comments WHITE BLOOD CELL COUNT (BEAKER) 9.0 K/ L 3.5-10.5 (test code = 775) RED BLOOD CELL COUNT (BEAKER) 2.62 M/ L 3.93-5.22 L (test code = 761) HEMOGLOBIN (BEAKER) (test code = 8.1 GM/DL 11.2-15.7 L 410) HEMATOCRIT (BEAKER) (test code = 24.9 % 34.1-44.9 L 411) MEAN CORPUSCULAR VOLUME (BEAKER) 95.0 fL 79.4-94.8 H (test code = 753) MEAN CORPUSCULAR HEMOGLOBIN 30.9 pg 25.6-32.2 (BEAKER) (test code = 751) MEAN CORPUSCULAR HEMOGLOBIN CONC 32.5 GM/DL 32.2-35.5 (BEAKER) (test code = 752) RED CELL DISTRIBUTION WIDTH 14.4 % 11.7-14.4 (BEAKER) (test code = 412) PLATELET COUNT (BEAKER) (test 115 K/CU MM 150-450 L code = 756) MEAN PLATELET VOLUME (BEAKER) 10.2 fL 9.4-12.3 (test code = 754) NUCLEATED RED BLOOD CELLS 0 /100 WBC 0-0 (BEAKER) (test code = 413) HEPATIC FUNCTION [id number] 06:40:00 Test Item Value Reference Range Interpretation Comments TOTAL PROTEIN (BEAKER) (test code = 4.6 gm/dL 6.0-8.3 L 770) ALBUMIN (BEAKER) (test code = 1145) 2.8 g/dL 3.5-5.0 L BILIRUBIN TOTAL (BEAKER) (test code 0.7 mg/dL 0.2-1.2 = 377) BILIRUBIN DIRECT (BEAKER) (test 0.4 mg/dL 0.1-0.5 code = 706) ALKALINE PHOSPHATASE (BEAKER) (test 30 U/L 40-150 L code = 346) AST (SGOT) (BEAKER) (test code = 39 U/L 5-34 H 353) ALT (SGPT) (BEAKER) (test code = 40 U/L 6-55 347) BASIC METABOLIC [id number] 06:40:00 Test Item Value Reference Range Interpretation Comments SODIUM (BEAKER) 136 meq/L 136-145 (test code = 381) POTASSIUM (BEAKER) 3.8 meq/L 3.5-5.1 (test code = 379) CHLORIDE (BEAKER) 109 meq/L 98-107 H (test code = 382) CO2 (BEAKER) (test 23 meq/L 22-29 code = 355) BLOOD UREA NITROGEN 12 mg/dL 7-21 (BEAKER) (test code = 354) CREATININE (BEAKER) 0.66 mg/dL 0.57-1.25 (test code = 358) GLUCOSE RANDOM 87 mg/dL 70-105 (BEAKER) (test code = 652) CALCIUM (BEAKER) 8.5 mg/dL 8.4-10.2 (test code = 697) EGFR (BEAKER) (test 86 mL/min/1.73 ESTIMA SHALONDA GFR IS code = 1092) sq m NOT ACCURATE CREATININE CLEARANCE IN PREDICTING GLOMERULAR FILTRATION RATE . ESTIMATED GFR I S NOT APPLICABLE FOR DIALYSIS PATIEN TS. CBC (HEMOGRAM ONLY)2017-10-19 04:56:00 Test Item Value Reference Range Interpretation Comments WHITE BLOOD CELL COUNT (BEAKER) 12.0 K/ L 3.5-10.5 H (test code = 775) RED BLOOD CELL COUNT (BEAKER) 2.70 M/ L 3.93-5.22 L (test code = 761) HEMOGLOBIN (BEAKER) (test code = 8.3 GM/DL 11.2-15.7 L 410) HEMATOCRIT (BEAKER) (test code = 25.5 % 34.1-44.9 L 411) MEAN CORPUSCULAR VOLUME (BEAKER) 94.4 fL 79.4-94.8 (test code = 753) MEAN CORPUSCULAR HEMOGLOBIN 30.7 pg 25.6-32.2 (BEAKER) (test code = 751) MEAN CORPUSCULAR HEMOGLOBIN CONC 32.5 GM/DL 32.2-35.5 (BEAKER) (test code = 752) RED CELL DISTRIBUTION WIDTH 14.8 % 11.7-14.4 H (BEAKER) (test code = 412) PLATELET COUNT (BEAKER) (test code 92 K/CU MM 150-450 L = 756) MEAN PLATELET VOLUME (BEAKER) 10.4 fL 9.4-12.3 (test code = 754) NUCLEATED RED BLOOD CELLS (BEAKER) 0 /100 WBC 0-0 (test code = 413) HEMOGLOBIN AND [id number] 09:12:00 Test Item Value Reference Range Interpretation Comments HEMOGLOBIN (BEAKER) (test code = 9.6 GM/DL 11.2-15.7 L 410) HEMATOCRIT (BEAKER) (test code = 28.4 % 34.1-44.9 L 411) HEPATIC FUNCTION [id number] 05:05:00 Test Item Value Reference Range Interpretation Comments TOTAL PROTEIN (BEAKER) (test code = 4.7 gm/dL 6.0-8.3 L 770) ALBUMIN (BEAKER) (test code = 1145) 2.9 g/dL 3.5-5.0 L BILIRUBIN TOTAL (BEAKER) (test code 0.8 mg/dL 0.2-1.2 = 377) BILIRUBIN DIRECT (BEAKER) (test 0.4 mg/dL 0.1-0.5 code = 706) ALKALINE PHOSPHATASE (BEAKER) (test 30 U/L 40-150 L code = 346) AST (SGOT) (BEAKER) (test code = 79 U/L 5-34 H 353) ALT (SGPT) (BEAKER) (test code = 66 U/L 6-55 H 347) BASIC METABOLIC [id number] 05:05:00 Test Item Value Reference Range Interpretation Comments SODIUM (BEAKER) 139 meq/L 136-145 (test code = 381) POTASSIUM (BEAKER) 4.3 meq/L 3.5-5.1 (test code = 379) CHLORIDE (BEAKER) 113 meq/L 98-107 H (test code = 382) CO2 (BEAKER) (test 20 meq/L 22-29 L code = 355) BLOOD UREA NITROGEN 18 mg/dL 7-21 (BEAKER) (test code = 354) CREATININE (BEAKER) 0.72 mg/dL 0.57-1.25 (test code = 358) GLUCOSE RANDOM 119 mg/dL 70-105 H (BEAKER) (test code = 652) CALCIUM (BEAKER) 8.6 mg/dL 8.4-10.2 (test code = 697) EGFR (BEAKER) (test 78 mL/min/1.73 ESTIMA SHALONDA GFR IS code = 1092) sq m NOT ACCURATE CREATININE CLEARANCE IN PREDICTING GLOMERULAR FILTRATION RATE . ESTIMATED GFR I S NOT APPLICABLE FOR DIALYSIS PATIEN TS. CBC (HEMOGRAM ONLY)2017-10-18 04:38:00 Test Item Value Reference Range Interpretation Comments WHITE BLOOD CELL COUNT (BEAKER) 18.2 K/ L 3.5-10.5 H (test code = 775) RED BLOOD CELL COUNT (BEAKER) 3.28 M/ L 3.93-5.22 L (test code = 761) HEMOGLOBIN (BEAKER) (test code = 10.1 GM/DL 11.2-15.7 L 410) HEMATOCRIT (BEAKER) (test code = 29.9 % 34.1-44.9 L 411) MEAN CORPUSCULAR VOLUME (BEAKER) 91.2 fL 79.4-94.8 (test code = 753) MEAN CORPUSCULAR HEMOGLOBIN 30.8 pg 25.6-32.2 (BEAKER) (test code = 751) MEAN CORPUSCULAR HEMOGLOBIN CONC 33.8 GM/DL 32.2-35.5 (BEAKER) (test code = 752) RED CELL DISTRIBUTION WIDTH 14.7 % 11.7-14.4 H (BEAKER) (test code = 412) PLATELET COUNT (BEAKER) (test 111 K/CU MM 150-450 L code = 756) MEAN PLATELET VOLUME (BEAKER) 10.3 fL 9.4-12.3 (test code = 754) NUCLEATED RED BLOOD CELLS 0 /100 WBC 0-0 (BEAKER) (test code = 413) HEMOGLOBIN AND [id number] 22:17:00 Test Item Value Reference Range Interpretation Comments HEMOGLOBIN (BEAKER) (test code = 11.1 GM/DL 11.2-15.7 L 410) HEMATOCRIT (BEAKER) (test code = 32.9 % 34.1-44.9 L 411) [id number] 20:13:00 Test Item Value Reference Range Interpretation Comments PROTIME (BEAKER) (test code = 15.0 seconds 11.7-14.7 H 759) INR (BEAKER) (test code = 370) 1.2 <=5.9 PARTIAL THROMBOPLASTIN TIME 23.3 seconds 22.5-36.0 (BEAKER) (test code = 760) RECOMMENDED COUMADIN/WARFARIN INR THERAPY RANGESSTANDARD DOSE: 2.0 - 3.0 Includes: PROPHYLAXIS forvenous thrombosis, systemic embolization; TREATMENT for venous thrombosis and/or pulmonary embolus.HIGH RISK: Target INR is 2.5-3.5 for patients with mechanical heart valves.PLATELET [id number] 20:04:00 Test Item Value Reference Range Interpretation Comments PLATELET COUNT (BEAKER) (test 109 K/CU MM 150-450 L code = 756) HEMOGLOBIN AND [id number] 16:24:00 Test Item Value Reference Range Interpretation Comments HEMOGLOBIN (BEAKER) (test code = 11.1 GM/DL 11.2-15.7 L 410) HEMATOCRIT (BEAKER) (test code = 34.1 % 34.1-44.9 411) SODIUM NA-STAT [id number] 14:54:00 Test Item Value Reference Range Interpretation Comments SODIUM (BEAKER) (test code = 381) 136 meq/L 135-148 POTASSIUM-STAT [id number] 14:54:00 Test Item Value Reference Range Interpretation Comments POTASSIUM (BEAKER) (test code = 5.0 meq/L 3.6-5.5 379) GLUCOSE-STAT [id number] 14:54:00 Test Item Value Reference Range Interpretation Comments GLUCOSE RANDOM (BEAKER) (test code 152 mg/dL 70-110 H = 652) HGB/HCT (H&H) - STAT [id number] 14:54:00 Test Item Value Reference Range Interpretation Comments HEMOGLOBIN (BEAKER) (test code = 10.8 g/dL 12.0-15.0 L 410) HEMATOCRIT (BEAKER) (test code = 32.0 % 36.0-45.0 L 411) BLOOD GAS, [id number] 14:54:00 Test Item Value Reference Range Interpretation Comments PH ARTERIAL (BEAKER) (test code = 7.28 7.35-7.45 L 383) PCO2 ARTERIAL (BEAKER) (test code 37 mmHg 35-45 = 384) PO2 ARTERIAL (BEAKER) (test code 249 mmHg 80-90 H = 385) O2 SATURATION ARTERIAL (BEAKER) 99.5 % 96.0-97.0 H (test code = 386) HCO3 ARTERIAL (BEAKER) (test code 17 mmol/L 21-29 L = 388) BASE EXCESS ARTERIAL (BEAKER) -9.3 mmol/L -2.0-3.0 L (test code = 387) PATIENT TEMPERATURE (BEAKER) 36.0 C (test code = 1818) FIO2 (BEAKER) (test code = 1819) 60.0 % CALCIUM, [id number] 14:53:00 Test Item Value Reference Range Interpretation Comments CALCIUM IONIZED (BEAKER) (test 1.12 mmol/L 1.12-1.27 code = 698) PH, BLOOD (BEAKER) (test code = 7.27 1810) BASIC METABOLIC [id number] 12:13:00 Test Item Value Reference Range Interpretation Comments SODIUM (BEAKER) 139 meq/L 136-145 (test code = 381) POTASSIUM (BEAKER) 4.3 meq/L 3.5-5.1 (test code = 379) CHLORIDE (BEAKER) 111 meq/L 98-107 H (test code = 382) CO2 (BEAKER) (test 25 meq/L 22-29 code = 355) BLOOD UREA NITROGEN 18 mg/dL 7-21 (BEAKER) (test code = 354) CREATININE (BEAKER) 0.85 mg/dL 0.57-1.25 (test code = 358) GLUCOSE RANDOM 141 mg/dL 70-105 H (BEAKER) (test code = 652) CALCIUM (BEAKER) 8.7 mg/dL 8.4-10.2 (test code = 697) EGFR (BEAKER) (test 64 mL/min/1.73 ESTIMA SHALONDA GFR IS code = 1092) sq m NOT ACCURATE CREATININE CLEARANCE IN PREDICTING GLOMERULAR FILTRATION RATE . ESTIMATED GFR I S NOT APPLICABLE FOR DIALYSIS PATIEN TS. HEMOGLOBIN AND [id number] 11:52:00 Test Item Value Reference Range Interpretation Comments HEMOGLOBIN (BEAKER) (test code = 7.5 GM/DL 11.2-15.7 L 410) HEMATOCRIT (BEAKER) (test code = 23.6 % 34.1-44.9 L 411) TISSUE [id number] 15:12:00Surgical Pathology Report Case: [id number] Authorizing Provider: Haydee Srivastava MD Collected: 10/01/2017 1054 Ordering Location: [facility] Endoscopy Received: 10/01/2017 1352 Services Pathologist: Frantz Cowart MD Specimen: Biopsy, Gastric GASTRIC BIOPSY- CHRONIC INACTIVE GASTRITIS- NO INTESTINAL METAPLASIA, NO DYSPLASIA AND NO MALIGNANCY IDENTIFIED- NO HELICOBACTER PYLORI ORGANISMS IDENTIFIED Signing Pathologist Direct Phone Line: [phone] signed by Frantz Cowart MD on 10/02/2017 at 3:12 [id number] findings on diagnostic imaging of abdomen Gastric biopsy The specimen is received in a formalin-filled container labeled with the patient's information and labeled "gastric biopsy" and consists of three fragments of santos-whitesoft tissue measuring ranging from 0.1 to 0.2 cm, submitted in A1. CG/ew Sections reveal fragments of benign antral and corpus mucosa with mild chronic inflammation. No active gastritis is seen. No He licobacter pylori organisms are identified on H&E stain. Intestinal metaplasia, dysplasia and malignancy are not [id number] 14:30:00 Test Item Value Reference Range Interpretation Comments SODIUM (BEAKER) (test code = 381) 141 meq/L 136-145 POTASSIUM (BEAKER) (test code = 4.6 meq/L 3.5-5.1 379) CHLORIDE (BEAKER) (test code = 382) 106 meq/L 98-107 CO2 (BEAKER) (test code = 355) 28 meq/L 22-29 BUN AND [id number] 14:30:00 Test Item Value Reference Range Interpretation Comments BLOOD UREA NITROGEN 17 mg/dL 7-21 (BEAKER) (test code = 354) CREATININE (BEAKER) 0.84 mg/dL 0.57-1.25 (test code = 358) EGFR (BEAKER) (test 65 mL/min/1.73 ESTIMA SHALONDA GFR IS code = 1092) sq m NOT ACCURATE CREATININE CLEARANCE IN PREDICTING GLOMERULAR FILTRATION RATE . ESTIMATED GFR I S NOT APPLICABLE FOR DIALYSIS PATIEN TS. [id number] 13:00:00 Test Item Value Reference Range Interpretation Comments PROTIME (BEAKER) (test code = 14.4 seconds 11.7-14.7 759) INR (BEAKER) (test code = 370) 1.1 <=5.9 PARTIAL THROMBOPLASTIN TIME 27.2 seconds 22.5-36.0 (BEAKER) (test code = 760) RECOMMENDED COUMADIN/WARFARIN INR THERAPY RANGESSTANDARD DOSE: 2.0 - 3.0 Includes: PROPHYLAXIS forvenous thrombosis, systemic embolization; TREATMENT for venous thrombosis and/or pulmonary embolus.HIGH RISK: Target INR is 2.5-3.5 for patients with mechanical heart valves.[id number] 12:43:00 Test Item Value Reference Range Interpretation Comments HEMOGLOBIN (BEAKER) (test code = 13.2 GM/DL 11.2-15.7 410) PLATELET [id number] 12:43:00 Test Item Value Reference Range Interpretation Comments PLATELET COUNT (BEAKER) (test 200 K/CU MM 150-450 code = 756) RAD, CHEST, 2 [id number] 15:30:00Reason for Exam:->I48.91FINAL REPORT TECHNIQUE: Frontal and lateral views of the chest. INDICATION: 82-year-old woman with atrial fibrillation, cardiac implant, and syncope. COMPARISON: Chest radiograph08/12/2017. FINDINGS: LINES/TUBES: Unchanged implanted cardiac device in the soft tissues of the anterior left chest with intact leads. Unchanged event recorder in the anterior soft tissues of the anterior left chest LUNGS: Biapical pleural-parenchymal scarring. No consolidation or pulmonary edema. PLEURA: No pleural effusion or pneumothorax. HEART AND MEDIASTINUM: The cardiomediastinal silhouette iswithin normal limits. Tortuous thoracic aorta. SOFT TISSUES AND BONES: Unremarkable. IMPRESSION:No a cute cardiopulmonary abnormalities. Signed: Ap Laneeport Verified Date/Time: 09/23/201715:30:37 Reading Location: [address] Radiology Reading Room [id number] 07:33:00 Test Item Value Reference Range Interpretation Comments MAGNESIUM (BEAKER) (test code = 1.8 mg/dL 1.6-2.6 627) BASIC METABOLIC [id number] 07:33:00 Test Item Value Reference Range Interpretation Comments SODIUM (BEAKER) 139 meq/L 136-145 (test code = 381) POTASSIUM (BEAKER) 3.5 meq/L 3.5-5.1 (test code = 379) CHLORIDE (BEAKER) 108 meq/L 98-107 H (test code = 382) CO2 (BEAKER) (test 25 meq/L 22-29 code = 355) BLOOD UREA NITROGEN 17 mg/dL 7-21 (BEAKER) (test code = 354) CREATININE (BEAKER) 0.79 mg/dL 0.57-1.25 (test code = 358) GLUCOSE RANDOM 83 mg/dL 70-105 (BEAKER) (test code = 652) CALCIUM (BEAKER) 9.8 mg/dL 8.4-10.2 (test code = 697) EGFR (BEAKER) (test 70 mL/min/1.73 ESTIMA SHALONDA GFR IS code = 1092) sq m NOT ACCURATE CREATININE CLEARANCE IN PREDICTING GLOMERULAR FILTRATION RATE . ESTIMATED GFR I S NOT APPLICABLE FOR DIALYSIS PATIEN TS. [id number] 05:10:00 Test Item Value Reference Range Interpretation Comments MAGNESIUM (BEAKER) (test code = 1.7 mg/dL 1.6-2.6 627) BASIC METABOLIC [id number] 05:10:00 Test Item Value Reference Range Interpretation Comments SODIUM (BEAKER) 139 meq/L 136-145 (test code = 381) POTASSIUM (BEAKER) 3.5 meq/L 3.5-5.1 (test code = 379) CHLORIDE (BEAKER) 109 meq/L 98-107 H (test code = 382) CO2 (BEAKER) (test 23 meq/L 22-29 code = 355) BLOOD UREA NITROGEN 18 mg/dL 7-21 (BEAKER) (test code = 354) CREATININE (BEAKER) 0.79 mg/dL 0.57-1.25 (test code = 358) GLUCOSE RANDOM 82 mg/dL 70-105 (BEAKER) (test code = 652) CALCIUM (BEAKER) 10.5 mg/dL 8.4-10.2 H (test code = 697) EGFR (BEAKER) (test 70 mL/min/1.73 ESTIMA SHALONDA GFR IS code = 1092) sq m NOT ACCURATE CREATININE CLEARANCE IN PREDICTING GLOMERULAR FILTRATION RATE . ESTIMATED GFR I S NOT APPLICABLE FOR DIALYSIS PATIEN TS. STOOL CULTURE + SHIGA [id number] 08:02:00 Test Item Value Reference Range Interpretation Comments CULTURE (BEAKER) No Salmonella, Shigella (test code = 1095) or Campylobacter isolated BLOOD [id number] 06:00:00 Test Item Value Reference Range Interpretation Comments CULTURE (BEAKER) (test No growth in 5 days code = 1095) BLOOD [id number] 06:00:00 Test Item Value Reference Range Interpretation Comments CULTURE (BEAKER) (test No growth in 5 days code = 1095) FECAL [id number] 19:16:00 Test Item Value Reference Range Interpretation Comments FECAL LEUKOCYTES No fecal leukocytes No fecal leukocytes (BEAKER) (test code = seen seen 992) SHIGA TOXIN [id number] 14:24:00 Test Item Value Reference Range Interpretation Comments SHIGA TOXIN 1 (BEAKER) (test Not detected Not detected code = 2177) SHIGA TOXIN 2 (BEAKER) (test Not detected Not detected code = 2179) STOOL PATH [id number] 08:46:00 Test Item Value Reference Range Interpretation Comments PATHOGEN EXAM CHARGED (BEAKER) (test Done code = 2381) BASIC METABOLIC [id number] 04:22:00 Test Item Value Reference Range Interpretation Comments SODIUM (BEAKER) 138 meq/L 136-145 (test code = 381) POTASSIUM (BEAKER) 3.7 meq/L 3.5-5.1 (test code = 379) CHLORIDE (BEAKER) 110 meq/L 98-107 H (test code = 382) CO2 (BEAKER) (test 22 meq/L 22-29 code = 355) BLOOD UREA NITROGEN 10 mg/dL 7-21 (BEAKER) (test code = 354) CREATININE (BEAKER) 0.69 mg/dL 0.57-1.25 (test code = 358) GLUCOSE RANDOM 86 mg/dL 70-105 (BEAKER) (test code = 652) CALCIUM (BEAKER) 9.7 mg/dL 8.4-10.2 (test code = 697) EGFR (BEAKER) (test 82 mL/min/1.73 ESTIMA SHALONDA GFR IS code = 1092) sq m NOT ACCURATE CREATININE CLEARANCE IN PREDICTING GLOMERULAR FILTRATION RATE . ESTIMATED GFR I S NOT APPLICABLE FOR DIALYSIS PATIEN TS. CBC (HEMOGRAM ONLY)2017-08-17 04:06:00 Test Item Value Reference Range Interpretation Comments WHITE BLOOD CELL COUNT (BEAKER) 5.3 K/ L 3.5-10.5 (test code = 775) RED BLOOD CELL COUNT (BEAKER) 3.29 M/ L 3.93-5.22 L (test code = 761) HEMOGLOBIN (BEAKER) (test code = 10.1 GM/DL 11.2-15.7 L 410) HEMATOCRIT (BEAKER) (test code = 31.7 % 34.1-44.9 L 411) MEAN CORPUSCULAR VOLUME (BEAKER) 96.4 fL 79.4-94.8 H (test code = 753) MEAN CORPUSCULAR HEMOGLOBIN 30.7 pg 25.6-32.2 (BEAKER) (test code = 751) MEAN CORPUSCULAR HEMOGLOBIN CONC 31.9 GM/DL 32.2-35.5 L (BEAKER) (test code = 752) RED CELL DISTRIBUTION WIDTH 13.0 % 11.7-14.4 (BEAKER) (test code = 412) PLATELET COUNT (BEAKER) (test 184 K/CU MM 150-450 code = 756) MEAN PLATELET VOLUME (BEAKER) 9.1 fL 9.4-12.3 L (test code = 754) NUCLEATED RED BLOOD CELLS 0 /100 WBC 0-0 (BEAKER) (test code = 413) C. DIFFICILE GDH [id number] 13:48:00 Test Item Value Reference Range Interpretation Comments CDT TOXIN (test code Negative Negative = [id number]) CDT GDH ANTIGEN Positive Negative A C. difficile present but (test code = toxin not detec shalonda. [id number]) Indicates colon ization with non-toxige gema strain or level of tox in below detectable leve ls. No need for enteri c isolation. Darin atment is rarely needed ( only when strong clinical suspicion for Clostridium difficile infection) Testing performed by [employer] Rapid Cassette Assay. For GDH, published sensitivity of the assay is 98.7% compared to cytotoxicity testing. For Toxin AB, published sensitivity is 87.8% and specificity 99.4% compared to cytotoxicity testing.Verification of kit performance was done by the [facility] Microbiology Lab prior to clinical use.BASIC METABOLIC [id number] 06:14:00 Test Item Value Reference Range Interpretation Comments SODIUM (BEAKER) 141 meq/L 136-145 (test code = 381) POTASSIUM (BEAKER) 4.0 meq/L 3.5-5.1 (test code = 379) CHLORIDE (BEAKER) 112 meq/L 98-107 H (test code = 382) CO2 (BEAKER) (test 21 meq/L 22-29 L code = 355) BLOOD UREA NITROGEN 3 mg/dL 7-21 L (BEAKER) (test code = 354) CREATININE (BEAKER) 0.68 mg/dL 0.57-1.25 (test code = 358) GLUCOSE RANDOM 79 mg/dL 70-105 (BEAKER) (test code = 652) CALCIUM (BEAKER) 9.5 mg/dL 8.4-10.2 (test code = 697) EGFR (BEAKER) (test 83 mL/min/1.73 ESTIMA SHALONDA GFR IS code = 1092) sq m NOT ACCURATE CREATININE CLEARANCE IN PREDICTING GLOMERULAR FILTRATION RATE . ESTIMATED GFR I S NOT APPLICABLE FOR DIALYSIS PATIEN TS. CBC (HEMOGRAM ONLY)2017-08-16 06:10:00 Test Item Value Reference Range Interpretation Comments WHITE BLOOD CELL COUNT (BEAKER) 4.7 K/ L 3.5-10.5 (test code = 775) RED BLOOD CELL COUNT (BEAKER) 3.08 M/ L 3.93-5.22 L (test code = 761) HEMOGLOBIN (BEAKER) (test code = 9.6 GM/DL 11.2-15.7 L 410) HEMATOCRIT (BEAKER) (test code = 29.4 % 34.1-44.9 L 411) MEAN CORPUSCULAR VOLUME (BEAKER) 95.5 fL 79.4-94.8 H (test code = 753) MEAN CORPUSCULAR HEMOGLOBIN 31.2 pg 25.6-32.2 (BEAKER) (test code = 751) MEAN CORPUSCULAR HEMOGLOBIN CONC 32.7 GM/DL 32.2-35.5 (BEAKER) (test code = 752) RED CELL DISTRIBUTION WIDTH 13.2 % 11.7-14.4 (BEAKER) (test code = 412) PLATELET COUNT (BEAKER) (test 189 K/CU MM 150-450 code = 756) MEAN PLATELET VOLUME (BEAKER) 10.1 fL 9.4-12.3 (test code = 754) NUCLEATED RED BLOOD CELLS 0 /100 WBC 0-0 (BEAKER) (test code = 413) BASIC METABOLIC [id number] 06:21:00 Test Item Value Reference Range Interpretation Comments SODIUM (BEAKER) 139 meq/L 136-145 (test code = 381) POTASSIUM (BEAKER) 3.7 meq/L 3.5-5.1 (test code = 379) CHLORIDE (BEAKER) 112 meq/L 98-107 H (test code = 382) CO2 (BEAKER) (test 20 meq/L 22-29 L code = 355) BLOOD UREA NITROGEN 4 mg/dL 7-21 L (BEAKER) (test code = 354) CREATININE (BEAKER) 0.68 mg/dL 0.57-1.25 (test code = 358) GLUCOSE RANDOM 78 mg/dL 70-105 (BEAKER) (test code = 652) CALCIUM (BEAKER) 9.3 mg/dL 8.4-10.2 (test code = 697) EGFR (BEAKER) (test 83 mL/min/1.73 ESTIMA SHALONDA GFR IS code = 1092) sq m NOT ACCURATE CREATININE CLEARANCE IN PREDICTING GLOMERULAR FILTRATION RATE . ESTIMATED GFR I S NOT APPLICABLE FOR DIALYSIS PATIEN TS. CBC (HEMOGRAM ONLY)2017-08-15 05:56:00 Test Item Value Reference Range Interpretation Comments WHITE BLOOD CELL COUNT (BEAKER) 5.6 K/ L 3.5-10.5 (test code = 775) RED BLOOD CELL COUNT (BEAKER) 2.93 M/ L 3.93-5.22 L (test code = 761) HEMOGLOBIN (BEAKER) (test code = 9.2 GM/DL 11.2-15.7 L 410) HEMATOCRIT (BEAKER) (test code = 27.6 % 34.1-44.9 L 411) MEAN CORPUSCULAR VOLUME (BEAKER) 94.2 fL 79.4-94.8 (test code = 753) MEAN CORPUSCULAR HEMOGLOBIN 31.4 pg 25.6-32.2 (BEAKER) (test code = 751) MEAN CORPUSCULAR HEMOGLOBIN CONC 33.3 GM/DL 32.2-35.5 (BEAKER) (test code = 752) RED CELL DISTRIBUTION WIDTH 13.2 % 11.7-14.4 (BEAKER) (test code = 412) PLATELET COUNT (BEAKER) (test 168 K/CU MM 150-450 code = 756) MEAN PLATELET VOLUME (BEAKER) 9.9 fL 9.4-12.3 (test code = 754) NUCLEATED RED BLOOD CELLS 0 /100 WBC 0-0 (BEAKER) (test code = 413) URINE [id number] 08:21:00 Test Item Value Reference Range Interpretation Comments CULTURE (BEAKER) (test code = 1095) No growth BASIC METABOLIC [id number] 04:48:00 Test Item Value Reference Range Interpretation Comments SODIUM (BEAKER) 139 meq/L 136-145 (test code = 381) POTASSIUM (BEAKER) 3.4 meq/L 3.5-5.1 L (test code = 379) CHLORIDE (BEAKER) 112 meq/L 98-107 H (test code = 382) CO2 (BEAKER) (test 22 meq/L 22-29 code = 355) BLOOD UREA NITROGEN 6 mg/dL 7-21 L (BEAKER) (test code = 354) CREATININE (BEAKER) 0.69 mg/dL 0.57-1.25 (test code = 358) GLUCOSE RANDOM 77 mg/dL 70-105 (BEAKER) (test code = 652) CALCIUM (BEAKER) 9.3 mg/dL 8.4-10.2 (test code = 697) EGFR (BEAKER) (test 82 mL/min/1.73 ESTIMA SHALONDA GFR IS code = 1092) sq m NOT ACCURATE CREATININE CLEARANCE IN PREDICTING GLOMERULAR FILTRATION RATE . ESTIMATED GFR I S NOT APPLICABLE FOR DIALYSIS PATIEN TS. CBC (HEMOGRAM ONLY)2017-08-14 04:29:00 Test Item Value Reference Range Interpretation Comments WHITE BLOOD CELL COUNT (BEAKER) 8.9 K/ L 3.5-10.5 (test code = 775) RED BLOOD CELL COUNT (BEAKER) 3.03 M/ L 3.93-5.22 L (test code = 761) HEMOGLOBIN (BEAKER) (test code = 9.4 GM/DL 11.2-15.7 L 410) HEMATOCRIT (BEAKER) (test code = 28.9 % 34.1-44.9 L 411) MEAN CORPUSCULAR VOLUME (BEAKER) 95.4 fL 79.4-94.8 H (test code = 753) MEAN CORPUSCULAR HEMOGLOBIN 31.0 pg 25.6-32.2 (BEAKER) (test code = 751) MEAN CORPUSCULAR HEMOGLOBIN CONC 32.5 GM/DL 32.2-35.5 (BEAKER) (test code = 752) RED CELL DISTRIBUTION WIDTH 13.2 % 11.7-14.4 (BEAKER) (test code = 412) PLATELET COUNT (BEAKER) (test 163 K/CU MM 150-450 code = 756) MEAN PLATELET VOLUME (BEAKER) 10.1 fL 9.4-12.3 (test code = 754) NUCLEATED RED BLOOD CELLS 0 /100 WBC 0-0 (BEAKER) (test code = 413) U/S, ABDOMINAL, [id number] 17:22:00Reason for exam:- >choledochelithiasis, nephrolithiasisFINAL REPORT INDICATION: 82-year-old female with abdominal pain, choledocholithiasis and nephrolithiasis. TECHNIQUE: Abdominal ultrasound complete. COMPARISON: None. FINDINGS:Theproximal, mid, and distal abdominal aorta were visualized and unremarkable. Visualized IVC unremarkable. Pancreas, to the extent visualized, is unremarkable. Liver is normal in echogenicity and contour. No suspicious liver lesion or mass demonstrated. Main portal vein is normal in diameter measuring 0.8 cm. Transverse diameter the gallbladder is 3.0 cm. No pericholecystic fluid or gallbladder wall thickening is demonstrated. There is a small amount of echogenic sludge in the neck of the gallbladder and there is a 1 cm focal calcification in the gallbladder neck which may represent a form stone. Common bile duct is normal in diameter measuring 0.3 cm. Spleen is small measuring 7 cm in length. Kidneys are normal in size. Right kidney measures 10.7 x 5.7 x 5.0 cm. Left kidney measures 10.8 x 6.0 x 5.5 cm. No renal mass, renal stone, or hydronephrosis demonstrated. No ascites or pleural effusion demo nstrated. IMPRESSION: No evidence of biliary ductal dilatation. No sonographic evidence of nephrolithiasis. Signed: Bhavik Bain MDReport Verified Date/Time: 08/13/2017 17:22:58 Reading Location: [facility] [id number] Ultrasound Reading Room Electronically signed by: BHAVIK BAIN M.D. on 2017 05:22 PMHEPATIC FUNCTION [id number] 05:29:00 Test Item Value Reference Range Interpretation Comments TOTAL PROTEIN (BEAKER) (test code = 5.5 gm/dL 6.0-8.3 L 770) ALBUMIN (BEAKER) (test code = 1145) 3.1 g/dL 3.5-5.0 L BILIRUBIN TOTAL (BEAKER) (test code 1.0 mg/dL 0.2-1.2 = 377) BILIRUBIN DIRECT (BEAKER) (test 0.6 mg/dL 0.1-0.5 H code = 706) ALKALINE PHOSPHATASE (BEAKER) (test 42 U/L 40-150 code = 346) AST (SGOT) (BEAKER) (test code = 30 U/L 5-34 353) ALT (SGPT) (BEAKER) (test code = 19 U/L 6-55 347) BASIC METABOLIC [id number] 05:29:00 Test Item Value Reference Range Interpretation Comments SODIUM (BEAKER) 137 meq/L 136-145 (test code = 381) POTASSIUM (BEAKER) 3.5 meq/L 3.5-5.1 (test code = 379) CHLORIDE (BEAKER) 108 meq/L 98-107 H (test code = 382) CO2 (BEAKER) (test 20 meq/L 22-29 L code = 355) BLOOD UREA NITROGEN 10 mg/dL 7-21 (BEAKER) (test code = 354) CREATININE (BEAKER) 0.73 mg/dL 0.57-1.25 (test code = 358) GLUCOSE RANDOM 83 mg/dL 70-105 (BEAKER) (test code = 652) CALCIUM (BEAKER) 9.3 mg/dL 8.4-10.2 (test code = 697) EGFR (BEAKER) (test 77 mL/min/1.73 ESTIMA SHALONDA GFR IS code = 1092) sq m NOT ACCURATE CREATININE CLEARANCE IN PREDICTING GLOMERULAR FILTRATION RATE . ESTIMATED GFR I S NOT APPLICABLE FOR DIALYSIS PATIEN TS. CBC (HEMOGRAM ONLY)2017-08-13 05:00:00 Test Item Value Reference Range Interpretation Comments WHITE BLOOD CELL COUNT (BEAKER) 11.2 K/ L 3.5-10.5 H (test code = 775) RED BLOOD CELL COUNT (BEAKER) 3.09 M/ L 3.93-5.22 L (test code = 761) HEMOGLOBIN (BEAKER) (test code = 9.5 GM/DL 11.2-15.7 L 410) HEMATOCRIT (BEAKER) (test code = 28.9 % 34.1-44.9 L 411) MEAN CORPUSCULAR VOLUME (BEAKER) 93.5 fL 79.4-94.8 (test code = 753) MEAN CORPUSCULAR HEMOGLOBIN 30.7 pg 25.6-32.2 (BEAKER) (test code = 751) MEAN CORPUSCULAR HEMOGLOBIN CONC 32.9 GM/DL 32.2-35.5 (BEAKER) (test code = 752) RED CELL DISTRIBUTION WIDTH 13.5 % 11.7-14.4 (BEAKER) (test code = 412) PLATELET COUNT (BEAKER) (test 159 K/CU MM 150-450 code = 756) MEAN PLATELET VOLUME (BEAKER) 10.7 fL 9.4-12.3 (test code = 754) NUCLEATED RED BLOOD CELLS 0 /100 WBC 0-0 (BEAKER) (test code = 413) URINALYSIS W/ [id number] 02:55:00 Test Item Value Reference Range Interpretation Comments COLOR (BEAKER) (test code = Yellow 470) CLARITY (BEAKER) (test code = Clear 469) SPECIFIC GRAVITY UA (BEAKER) 1.028 1.001-1.035 (test code = 468) PH UA (BEAKER) (test code = 6.0 5.0-8.0 467) PROTEIN UA (BEAKER) (test code Negative Negative = 464) GLUCOSE UA (BEAKER) (test code Negative Negative = 365) KETONES UA (BEAKER) (test code Negative Negative = 371) BILIRUBIN UA (BEAKER) (test Negative Negative code = 462) BLOOD UA (BEAKER) (test code = Small Negative A 461) NITRITE UA (BEAKER) (test code Negative Negative = 465) LEUKOCYTE ESTERASE UA (BEAKER) Negative Negative (test code = 466) UROBILINOGEN UA (BEAKER) (test 0.2 mg/dL 0.2-1.0 code = 463) RBC UA (BEAKER) (test code = 4 /HPF 519) WBC UA (BEAKER) (test code = 1 /HPF 520) SOURCE(BEAKER) (test code = Urine, Voided 1656) RAD, CHEST, 1 VIEW, NON [id number] 21:18:00Reason for exam:->sobShould this be performed at the bedside?->YesFINAL REPORT History: Shortness of breath. Comparison: 07/19/2017 Findings: Asingle view of the chest is submitted. The cardiac silhouette is within normal limits for size. The aorta is elongated. A left subclavian, dual-lead pacemaker is in place. An electronic device is implanted in the left chest. There are stable, mild elevation of the right hemidiaphragmatic apex. There is no focal consolidation, pneumothorax, large pleural effusion or evidence of overt pulmonary edema. There is no acute bony abnormality. Impression: No acute abnormality. Signed: Jessica Herzogchildren[facility] Verified Date/Time: 08/12/2017 21:18:28 Reading Location: [address] Reading Room [id number] 07:00:00 Test Item Value Reference Range Interpretation Comments MAGNESIUM (BEAKER) (test code = 1.9 mg/dL 1.6-2.6 627) BASIC METABOLIC [id number] 07:00:00 Test Item Value Reference Range Interpretation Comments SODIUM (BEAKER) 137 meq/L 136-145 (test code = 381) POTASSIUM (BEAKER) 3.8 meq/L 3.5-5.1 (test code = 379) CHLORIDE (BEAKER) 108 meq/L 98-107 H (test code = 382) CO2 (BEAKER) (test 22 meq/L 22-29 code = 355) BLOOD UREA NITROGEN 6 mg/dL 7-21 L (BEAKER) (test code = 354) CREATININE (BEAKER) 0.70 mg/dL 0.57-1.25 (test code = 358) GLUCOSE RANDOM 84 mg/dL 70-105 (BEAKER) (test code = 652) CALCIUM (BEAKER) 9.7 mg/dL 8.4-10.2 (test code = 697) EGFR (BEAKER) (test 81 mL/min/1.73 ESTIMA SHALONDA GFR IS code = 1092) sq m NOT ACCURATE CREATININE CLEARANCE IN PREDICTING GLOMERULAR FILTRATION RATE . ESTIMATED GFR I S NOT APPLICABLE FOR DIALYSIS PATIEN TS. CBC W/PLT COUNT & AUTO [id number] 06:43:00 Test Item Value Reference Range Interpretation Comments WHITE BLOOD CELL COUNT (BEAKER) 6.1 K/ L 3.5-10.5 (test code = 775) RED BLOOD CELL COUNT (BEAKER) 3.42 M/ L 3.93-5.22 L (test code = 761) HEMOGLOBIN (BEAKER) (test code = 10.8 GM/DL 11.2-15.7 L 410) HEMATOCRIT (BEAKER) (test code = 32.7 % 34.1-44.9 L 411) MEAN CORPUSCULAR VOLUME (BEAKER) 95.6 fL 79.4-94.8 H (test code = 753) MEAN CORPUSCULAR HEMOGLOBIN 31.6 pg 25.6-32.2 (BEAKER) (test code = 751) MEAN CORPUSCULAR HEMOGLOBIN CONC 33.0 GM/DL 32.2-35.5 (BEAKER) (test code = 752) RED CELL DISTRIBUTION WIDTH 13.8 % 11.7-14.4 (BEAKER) (test code = 412) PLATELET COUNT (BEAKER) (test 133 K/CU MM 150-450 L code = 756) MEAN PLATELET VOLUME (BEAKER) 10.1 fL 9.4-12.3 (test code = 754) NUCLEATED RED BLOOD CELLS 0 /100 WBC 0-0 (BEAKER) (test code = 413) NEUTROPHILS RELATIVE PERCENT 57 % (BEAKER) (test code = 429) LYMPHOCYTES RELATIVE PERCENT 26 % (BEAKER) (test code = 430) MONOCYTES RELATIVE PERCENT 11 % (BEAKER) (test code = 431) EOSINOPHILS RELATIVE PERCENT 6 % (BEAKER) (test code = 432) BASOPHILS RELATIVE PERCENT 0 % (BEAKER) (test code = 437) NEUTROPHILS ABSOLUTE COUNT 3.51 K/ L 1.56-6.13 (BEAKER) (test code = 670) LYMPHOCYTES ABSOLUTE COUNT 1.58 K/ L 1.18-3.74 (BEAKER) (test code = 414) MONOCYTES ABSOLUTE COUNT (BEAKER) 0.67 K/ L 0.24-0.36 H (test code = 415) EOSINOPHILS ABSOLUTE COUNT 0.35 K/ L 0.04-0.36 (BEAKER) (test code = 416) BASOPHILS ABSOLUTE COUNT (BEAKER) 0.02 K/ L 0.01-0.08 (test code = 417) IMMATURE GRANULOCYTES-RELATIVE 0 % 0-1 PERCENT (BEAKER) (test code = 2801) RAD, CHEST, 1 VIEW, NON [id number] 21:45:00Reason for exam:->s/p PPM implantShould this be performed at the bedside?->YesFINAL REPORT EXAMINATION: AP PORTABLE CHEST RADIOGRAPH CLINICAL INDICATION: Cardiac pacemaker placement IMPRESSION: Compared with 07/18/2017. The patient is status post placement of a dual lead left subclavian cardiac pacing device. The leads are intact where visible. No evidenceof a postprocedure pneumothorax. The heart is mildly enlarged but stable. Mediastinal contours are unchanged. A chest wall subcutaneous cardiac monitoring device is again noted. Thin streaky relatively stable opacities are noted in both lungs. Morphology, distribution and relative stability favor subsegmental atelectasis or scarring. No definite evidence of a discrete pneumonia, pulmonary edema, large pleural effusion, or acute osseous abnormality. Signed: Jluis Garcia MDReport Verified Date/Time:07/19/2017 21:45:59 Reading Location: [address] Reading Room EEG AWAKE AND [id number] 14:50:00Reason for exam:->syncope vs seizureEEG REPORT: Keysha Mejia [facility] Date of EEDate of report: Test location: Inpatient - Patient RoomEEG start time: 1319EEG end time: 1340EEG #: [id number] No: [id number] ICD Code: #: R55: Syncope and Collapse (ICD 9: 780.2)CPT Code: #: 09797: 02. EEG awake and asleep; 20-40 minPROCEDURE: EEG HISTORY: 82 yo F w/ syncope vs seizureTECHNICAL SUMMARY: This is a digital EEG performed using disc electrodes placed according to the International 10-20 system of electrode placement. Scalp to scalp and scalp to ear montages were used.No sedation was given.DESCRIPTION OF RECORD: In the best awake state, a Posterior Dominant Rhythm (PDR) was present at 8-9 cycles/ second. There was no focal asymmetry in the background. No epileptiform discharges were noted. No clinical or electrographic seizures were noted. SLEEP Stage 2 sleep was indicated by the presence of sleep spindles and K complexes.HYPERVENTILATION: Hyperventilation was not performed.PHOTIC STIMULATION: Photic stimulation did not result in a driving response.EKG: The heart rate was 60/ min.IMPRESSION: This is a normal EEG in wakefulness and sleep. COMMENT: A normal EEG does not rule out the diagnosis of a seizure disorder. Further clinical correlation is suggestedClinical Fellow: Phylicia OchoaaNeurophysiologist: Yareli Gonzalez Electronically signed by: YARELI Soriano 07/19/2017 02:50 PMTSH/FREE T4 IF [id number] 07:14:00 Test Item Value Reference Range Interpretation Comments THYROID STIMULATING HORMONE 1.37 uIU/mL 0.35-4.94 (BEAKER) (test code = 772) [id number] 07:05:00 Test Item Value Reference Range Interpretation Comments MAGNESIUM (BEAKER) (test code = 1.8 mg/dL 1.6-2.6 627) BASIC METABOLIC [id number] 07:05:00 Test Item Value Reference Range Interpretation Comments SODIUM (BEAKER) 141 meq/L 136-145 (test code = 381) POTASSIUM (BEAKER) 3.6 meq/L 3.5-5.1 (test code = 379) CHLORIDE (BEAKER) 111 meq/L 98-107 H (test code = 382) CO2 (BEAKER) (test 23 meq/L 22-29 code = 355) BLOOD UREA NITROGEN 12 mg/dL 7-21 (BEAKER) (test code = 354) CREATININE (BEAKER) 0.70 mg/dL 0.57-1.25 (test code = 358) GLUCOSE RANDOM 74 mg/dL 70-105 (BEAKER) (test code = 652) CALCIUM (BEAKER) 9.4 mg/dL 8.4-10.2 (test code = 697) EGFR (BEAKER) (test 81 mL/min/1.73 ESTIMA SHALONDA GFR IS code = 1092) sq m NOT ACCURATE CREATININE CLEARANCE IN PREDICTING GLOMERULAR FILTRATION RATE . ESTIMATED GFR I S NOT APPLICABLE FOR DIALYSIS PATIEN TS. CBC W/PLT COUNT & AUTO [id number] 06:37:00 Test Item Value Reference Range Interpretation Comments WHITE BLOOD CELL COUNT (BEAKER) 6.1 K/ L 3.5-10.5 (test code = 775) RED BLOOD CELL COUNT (BEAKER) 3.43 M/ L 3.93-5.22 L (test code = 761) HEMOGLOBIN (BEAKER) (test code = 10.8 GM/DL 11.2-15.7 L 410) HEMATOCRIT (BEAKER) (test code = 33.1 % 34.1-44.9 L 411) MEAN CORPUSCULAR VOLUME (BEAKER) 96.5 fL 79.4-94.8 H (test code = 753) MEAN CORPUSCULAR HEMOGLOBIN 31.5 pg 25.6-32.2 (BEAKER) (test code = 751) MEAN CORPUSCULAR HEMOGLOBIN CONC 32.6 GM/DL 32.2-35.5 (BEAKER) (test code = 752) RED CELL DISTRIBUTION WIDTH 13.8 % 11.7-14.4 (BEAKER) (test code = 412) PLATELET COUNT (BEAKER) (test 141 K/CU MM 150-450 L code = 756) MEAN PLATELET VOLUME (BEAKER) 10.7 fL 9.4-12.3 (test code = 754) NUCLEATED RED BLOOD CELLS 0 /100 WBC 0-0 (BEAKER) (test code = 413) NEUTROPHILS RELATIVE PERCENT 64 % (BEAKER) (test code = 429) LYMPHOCYTES RELATIVE PERCENT 23 % (BEAKER) (test code = 430) MONOCYTES RELATIVE PERCENT 8 % (BEAKER) (test code = 431) EOSINOPHILS RELATIVE PERCENT 4 % (BEAKER) (test code = 432) BASOPHILS RELATIVE PERCENT 1 % (BEAKER) (test code = 437) NEUTROPHILS ABSOLUTE COUNT 3.93 K/ L 1.56-6.13 (BEAKER) (test code = 670) LYMPHOCYTES ABSOLUTE COUNT 1.40 K/ L 1.18-3.74 (BEAKER) (test code = 414) MONOCYTES ABSOLUTE COUNT (BEAKER) 0.49 K/ L 0.24-0.36 H (test code = 415) EOSINOPHILS ABSOLUTE COUNT 0.23 K/ L 0.04-0.36 (BEAKER) (test code = 416) BASOPHILS ABSOLUTE COUNT (BEAKER) 0.03 K/ L 0.01-0.08 (test code = 417) IMMATURE GRANULOCYTES-RELATIVE 0 % 0-1 PERCENT (BEAKER) (test code = 2801) BASIC METABOLIC [id number] 21:33:00 Test Item Value Reference Range Interpretation Comments SODIUM (BEAKER) 140 meq/L 136-145 (test code = 381) POTASSIUM (BEAKER) 3.5 meq/L 3.5-5.1 (test code = 379) CHLORIDE (BEAKER) 108 meq/L 98-107 H (test code = 382) CO2 (BEAKER) (test 24 meq/L 22-29 code = 355) BLOOD UREA NITROGEN 15 mg/dL 7-21 (BEAKER) (test code = 354) CREATININE (BEAKER) 0.74 mg/dL 0.57-1.25 (test code = 358) GLUCOSE RANDOM 115 mg/dL 70-105 H (BEAKER) (test code = 652) CALCIUM (BEAKER) 9.5 mg/dL 8.4-10.2 (test code = 697) EGFR (BEAKER) (test 76 mL/min/1.73 ESTIMA SHALONDA GFR IS code = 1092) sq m NOT ACCURATE CREATININE CLEARANCE IN PREDICTING GLOMERULAR FILTRATION RATE . ESTIMATED GFR I S NOT APPLICABLE FOR DIALYSIS PATIEN TS. URINALYSIS W/ REFLEX URINE [id number] 16:11:00 Test Item Value Reference Range Interpretation Comments COLOR (BEAKER) (test code = 470) Yellow CLARITY (BEAKER) (test code = 469) Hazy SPECIFIC GRAVITY UA (BEAKER) (test 1.011 1.001-1.035 code = 468) PH UA (BEAKER) (test code = 467) 6.0 5.0-8.0 PROTEIN UA (BEAKER) (test code = Negative Negative 464) GLUCOSE UA (BEAKER) (test code = Negative Negative 365) KETONES UA (BEAKER) (test code = Negative Negative 371) BILIRUBIN UA (BEAKER) (test code = Negative Negative 462) BLOOD UA (BEAKER) (test code = 461) Trace Negative A NITRITE UA (BEAKER) (test code = Negative Negative 465) LEUKOCYTE ESTERASE UA (BEAKER) Negative Negative (test code = 466) UROBILINOGEN UA (BEAKER) (test code 0.2 mg/dL 0.2-1.0 = 463) RBC UA (BEAKER) (test code = 519) 2 /HPF WBC UA (BEAKER) (test code = 520) < /HPF BACTERIA (BEAKER) (test code = 517) Many MUCUS (BEAKER) (test code = 1574) Rare SQUAMOUS EPITHELIAL (BEAKER) (test < /HPF code = 516) HYALINE CASTS (BEAKER) (test code = 2 /LPF 514) SOURCE(BEAKER) (test code = 2795) CT, BRAIN, WITHOUT [id number] 14:40:00Reason for exam:->SEIZURESWhat is the patient's sedation requirement?->No SedationFINAL REPORT CT head without contrast 07/18/2017 2:38 PM CLINICAL HISTORY: Seizures new or progressive TECHNIQUE: Axial noncontrast CT images through the head were obtained. This examination was performed according to our departmental dose optimization program, which includes automated exposure control, adjustment of the mA and/or kV according to patient size, and/or use of iterated reconstruction technique. COMPARISON: None available FINDINGS: There is no hemorrhage, extra-axial collection, mass, hydrocephalus, or midline shift. There is mild microvascular ischemia in the supratentorial white matter. There is atherosclerotic calcification of the intracranial arterial vasculature. There is generalized parenchymal volume loss. The visualized paranasal sinuses and mastoid aircells are well aerated. The skull is intact. IMPRESSION: No intracranial hemorrhage or mass effect. Chronic appearing microvascular and involutional changes. If concern for acute pathology persists, further evaluation with MRI is recommended. Signed: Nan Castillotieshaort Verified Date/Time: 07/18/2017 14:40:04 Reading Location: [facility] Radiology Reading Room RAD, CHEST, 1 VIEW, NON [id number] 12:33:00Reason for exam:->SEIZURESFINAL REPORT Chest one view INDICATION: Seizures COMPARISON: 07/15/2017 IMPRESSION: Diffuse interstitial and central groundglass opacities may reflect mild edema or atypical pneumonitis. No pneumothorax or significant pleural effusion is seen. The cardiac silhouette is enlarged. The aorta is mildly ectatic/tortuous. A loop recorder overlies the left chest. There are osseous degenerative changes. Signed: Ascencion Marshall Verified Date/Time: 07/18/2017 12:33:45 Reading Location: [facility] Radiology Reading Room CREATINE KINASE (CK), TOTAL AND [id number] 12:15:00 Test Item Value Reference Range Interpretation Comments CREATINE KINASE TOTAL (BEAKER) 36 U/L 29-200 (test code = 380) CREATINE KINASE-MB (BEAKER) (test 1.8 ng/mL 0.0-6.6 code = 750) CREATINE KINASE-MB INDEX (BEAKER) 5.0 % (test code = 395) CK-MB Reference Range:<6.7 Normal6.7-10.0 Borderline>10.0 AbnormalTROPONIN [id number] 12:15:00 Test Item Value Reference Range Interpretation Comments TROPONIN I (BEAKER) (test code = 0.02 ng/mL 0.00-0.03 397) Troponin I (TnI) levels must be interpreted in the context of the presenting symptoms and the clinical findings. Elevated TnI levels indicate myocardial damage, but are not specific for ischemic heart disease. Elevated TnI levels are seen in patients with other cardiac conditions (including myocarditis and congestive heart failure), and slight TnI elevations occur in patients with other conditions, including sepsis, renal failure, acidosis, acute neurological disease, and persistent tachyarrhythmia.B-TYPE NATRIURETIC FACTOR (BNP) 2017-07-18 12:15:00 Test Item Value Reference Range Interpretation Comments B-TYPE NATRIURETIC PEPTIDE (BEAKER) 114 pg/mL 0-100 H (test code = 700) [id number] 12:08:00 Test Item Value Reference Range Interpretation Comments MAGNESIUM (BEAKER) 2.9 mg/dL 1.6-2.6 H Specimen markedly (test code = 627) hemolyzed BASIC METABOLIC [id number] 12:08:00 Test Item Value Reference Range Interpretation Comments SODIUM (BEAKER) 139 meq/L 136-145 (test code = 381) POTASSIUM (BEAKER) 5.8 meq/L 3.5-5.1 H Specimen markedly (test code = 379) hemolyzed CHLORIDE (BEAKER) 112 meq/L 98-107 H (test code = 382) CO2 (BEAKER) (test 21 meq/L 22-29 L code = 355) BLOOD UREA NITROGEN 15 mg/dL 7-21 (BEAKER) (test code = 354) CREATININE (BEAKER) 0.77 mg/dL 0.57-1.25 Specimen markedly (test code = 358) hemolyzed GLUCOSE RANDOM 90 mg/dL 70-105 (BEAKER) (test code = 652) CALCIUM (BEAKER) 9.5 mg/dL 8.4-10.2 (test code = 697) EGFR (BEAKER) (test 72 mL/min/1.73 ESTIMA SHALONDA GFR IS code = 1092) sq m NOT ACCURATE CREATININE CLEARANCE IN PREDICTING GLOMERULAR FILTRATION RATE . ESTIMATED GFR I S NOT APPLICABLE FOR DIALYSIS PATIEN TS. CBC W/PLT COUNT & AUTO [id number] 11:54:00 Test Item Value Reference Range Interpretation Comments WHITE BLOOD CELL COUNT (BEAKER) 8.9 K/ L 3.5-10.5 (test code = 775) RED BLOOD CELL COUNT (BEAKER) 3.74 M/ L 3.93-5.22 L (test code = 761) HEMOGLOBIN (BEAKER) (test code = 11.7 GM/DL 11.2-15.7 410) HEMATOCRIT (BEAKER) (test code = 36.1 % 34.1-44.9 411) MEAN CORPUSCULAR VOLUME (BEAKER) 96.5 fL 79.4-94.8 H (test code = 753) MEAN CORPUSCULAR HEMOGLOBIN 31.3 pg 25.6-32.2 (BEAKER) (test code = 751) MEAN CORPUSCULAR HEMOGLOBIN CONC 32.4 GM/DL 32.2-35.5 (BEAKER) (test code = 752) RED CELL DISTRIBUTION WIDTH 13.8 % 11.7-14.4 (BEAKER) (test code = 412) PLATELET COUNT (BEAKER) (test 153 K/CU MM 150-450 code = 756) MEAN PLATELET VOLUME (BEAKER) 10.9 fL 9.4-12.3 (test code = 754) NUCLEATED RED BLOOD CELLS 0 /100 WBC 0-0 (BEAKER) (test code = 413) NEUTROPHILS RELATIVE PERCENT 76 % (BEAKER) (test code = 429) LYMPHOCYTES RELATIVE PERCENT 15 % (BEAKER) (test code = 430) MONOCYTES RELATIVE PERCENT 6 % (BEAKER) (test code = 431) EOSINOPHILS RELATIVE PERCENT 2 % (BEAKER) (test code = 432) BASOPHILS RELATIVE PERCENT 1 % (BEAKER) (test code = 437) NEUTROPHILS ABSOLUTE COUNT 6.76 K/ L 1.56-6.13 H (BEAKER) (test code = 670) LYMPHOCYTES ABSOLUTE COUNT 1.34 K/ L 1.18-3.74 (BEAKER) (test code = 414) MONOCYTES ABSOLUTE COUNT (BEAKER) 0.51 K/ L 0.24-0.36 H (test code = 415) EOSINOPHILS ABSOLUTE COUNT 0.17 K/ L 0.04-0.36 (BEAKER) (test code = 416) BASOPHILS ABSOLUTE COUNT (BEAKER) 0.04 K/ L 0.01-0.08 (test code = 417) IMMATURE GRANULOCYTES-RELATIVE 1 % 0-1 PERCENT (BEAKER) (test code = 2801) POCT-GLUCOSE [id number] 11:13:00 Test Item Value Reference Range Interpretation Comments POC-GLUCOSE METER 100 mg/dL 70-110 TESTED AT [facility] 6720 (BEAKER) (test code = [place] 1538) [address] RAD, CHEST, 2 [id number] 15:41:00Reason for Exam:->Paroxysmal atrial fibrillation [I48.0]FINAL REPORT INDICATION: Paroxysmal atrial fibrillation [I48.0] COMPARISON: March 30, 2016 TECHNIQUE: Chest radiograph, two views, PA and lateral. FINDINGS / IMPRESSION:Mild enlargement of the heart shadow and implanted chest wall monitoring device again demonstrated. No pulmonary edema or pleural effusion is present. No pneumonia or pneumothorax demonstrated. Osseous structures are unremarkable. Signed: Bhavik Bain [facility] Verified Date/Time: 07/15/2017 15:41:26 Reading Location: [address] Radiology Reading Room
[2019-08-16 17:05] LABS: Protime INR 2.45
[2019-08-16 17:06] LABS: Absolute Lymphocytes (CBC) 0.9 K/uL (0.7-4.9); Basophils % 0.4 % (0-1.3); Hematocrit 37.7 % (36.0-45.0); Lymphocytes % 5.8 % (15.3-44.8); MPV 9.7 fL (7.6-11.3); RBC Red Blood Cell Count 4.01 M/uL (3.86-4.86)
[2019-08-16 17:53] LABS: Bilirubin Direct 0.3 mg/dL (0-0.2); Bilirubin Total 0.8 mg/dL (0.2-1.0); Ferritin 165.8 ng/mL (8-388); Protein, Total 6.7 g/dL (6.4-8.2)
--- NOTE | 2019-08-16 18:45 | RAD REPORT ---
EXAM DESCRIPTION: CT - Abdomen Pelvis W Contrast - 08/16/2019 6:24 pm CLINICAL HISTORY: Abdominal pain COMPARISON: none. TECHNIQUE: Computed axial tomography of the abdomen pelvis was obtained. 100 cc Isovue-300 was admin istered intravenously. Oral contrast was not requested which limits evaluation of bowel. All CT scans are performed using dose optimization technique as appropriate and may include automated exposure control or mA/KV adjustment according to patient size. FINDINGS: Cholecystectomy. Liver, spleen and adrenals unremarkable Pancreas is atrophic Small nonobstructing right renal calculi. Small left renal cyst Marked thickening of the wall of the distal sigmoid colon. Diverticulosis Appendix is mildly distended containing small stones. The appendix extends medially the cecum. Strand ing within the fat adjacent to the distal appendix Presacral edema. Small amount of ascites IMPRESSION: Patient probably has appendicitis Marked thickening of the wall of the distal sigmoid colon could be secondary to diverticulitis, secon charisse inflammation from the suspected appendicitis or a mass
--- NOTE | 2019-08-16 18:46 | RAD REPORT ---
EXAM DESCRIPTION: [facility] Single View08/16/2019 5:40 pm CLINICAL HISTORY: abd pain COMPARISON: 2017 FINDINGS: The lungs appear clear of acute infiltrate. The heart is mildly enlarged. Pacemaker leads are in place. IMPRESSION: No acute abnormalities displayed
[2019-08-16 18:54] LABS: Blood Morphology Comment NOT SEEN (NOT SEEN); Platelet Estimate ADEQ; Urine White Blood Cell Casts OK
[2019-08-16] MEDS ORDERED: PIPER/TAZO/NS 3.375gm 3.375 GM/100 ML BAG ONE (19:23)
--- NOTE | 2019-08-16 20:08 | ER ---
Nurse's Notes [facility] [address] Name: Keysha Mejia Age: 84 yrs Sex: Female : 1935 Arrival Date: 08/16/2019 Time: 16:08 Bed 5 Private MD: Diagnosis: Diverticulitis of large intestine without perforation or abscess without bleeding Presentation: 08/15 16:00 Chief complaint: EMS states: abd pain, n/v/d and fever for the last couple of days. Was sv being treated for diverticulitis by her PCP and given Flagyl and Augmentin and finished those about 4 days ago. HR-110 EKG-SR Temp 100.1, 20G R AC started and Zofran 4mg IVP and NS bolus given. Risk Assessment: Do you want to hurt yourself or someone else? Patient reports no desire to harm self or others. Onset of symptoms was July 2019. 16:00 Method Of Arrival: EMS: [facility] sv 16:00 Acuity: JONAH 2 sv 16:25 Coronavirus screen: Surgical mask placed on patient. Patient moved to private room, sv placed in contact and droplet isolation with eye protection until further assessment. Patient denies a cough. Patient denies shortness of breath or difficulty breathing. Patient reports a measured and/or subjective temperature greater than 100.4F. Patient denies travel on a cruise ship or to a country the [facility] currently lists as an affected area. Patient denies contact with known and/or suspected case of COVID-19. Ordered to place on droplet per Daria [employer]. Ebola Screen: No symptoms or risks identified at this time. Initial Sepsis Screen: Does the patient meet any 2 criteria? No. Patient's initial sepsis screen is negative. Does the patient have a suspected source of infection? No. Patient's initial sepsis screen is negative. Triage Assessment: 16:00 General: Appears in no apparent distress. comfortable, well developed, Behavior is sv calm, cooperative, appropriate for age. Pain: Complains of pain in left lower quadrant Pain currently is 5 out of 10 on a pain scale. Neuro: Level of Consciousness is awake, alert, obeys commands, Oriented to person, place, time, situation, Moves all extremities. Full function Gait is steady, Speech is normal. Cardiovascular: Rhythm is sinus rhythm. Respiratory: Airway is patent Respiratory effort is even, unlabored, Respiratory pattern is regular, symmetrical. GI: Abdomen is flat, Reports lower abdominal pain, diarrhea, nausea, vomiting. Derm: Skin is intact, Skin is pink, warm \T\ dry. Musculoskeletal: Range of motion: intact in all extremities. 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 - Social history:: Smoking status: Patient denies any tobacco usage or history of. Screenin:10 Abuse screen: Denies threats or abuse. Denies injuries from another. Nutritional sv screening: No deficits noted. Tuberculosis screening: No symptoms or risk factors identified. Fall Risk None identified. Assessment: 16:53 Reassessment: COVID-19 obtained. sv 18:43 Reassessment: Patient appears in no apparent distress at this time. No changes from sv previously documented assessment. Patient and/or family updated on plan of care and expected duration. Pain level reassessed. Patient is alert, oriented x 3, equal unlabored respirations, skin warm/dry/pink. 19:00 General: Appears in no apparent distress. uncomfortable, Behavior is calm, cooperative. vc Pain: Complains of pain in left lower quadrant Pain does not radiate. Neuro: Level of Consciousness is awake, obeys commands, Oriented to person, place. Cardiovascular: Patient's skin is warm and dry. Respiratory: Airway is patent Respiratory effort is even, unlabored, Respiratory pattern is regular, symmetrical. : No signs and/or symptoms were reported regarding the genitourinary system. Derm: Skin is intact, is healthy with good turgor. 19:00 Reassessment: Report received from Isabel Jarvis RN. vc 19:57 Reassessment: a type and screen has been sent as ordered, pt requesting more blankets, sg primary nurse notified. 20:00 Reassessment: Patient appears in no apparent distress at this time. Patient and/or vc family updated on plan of care and expected duration. Pain level reassessed. Patient is alert, oriented x 3, equal unlabored respirations, skin warm/dry/pink. Patient states feeling better. 20:53 Reassessment: Patient appears in no apparent distress at this time. Patient and/or vc family updated on plan of care and expected duration. Pain level reassessed. Patient is alert, oriented x 3, equal unlabored respirations, skin warm/dry/pink. Patient states symptoms have improved. 21:59 Reassessment: Patient appears in no apparent distress at this time. Patient and/or vc family updated on plan of care and expected duration. Pain level reassessed. Patient is alert, oriented x 3, equal unlabored respirations, skin warm/dry/pink. 08/16 00:00 GI: Bowel sounds present X 4 quads. rv Vital Signs: 08/15 16:21 BP 132 / 66; Pulse 90; Resp 16; Temp 100.1; Pulse Ox 99% ; sv 17:00 BP 118 / 60; Pulse 86; Resp 22; Pulse Ox 98% ; sv 18:00 BP 126 / 62; Pulse 86; Resp 22; Pulse Ox 100% ; sv 18:35 BP 124 / 59; Pulse 97; Resp 18; Pulse Ox 100% ; sv 19:00 BP 114 / 56; Pulse 91; Resp 20; Pulse Ox 99% on R/A; vc 20:00 BP 120 / 62; Pulse 88; Resp 20; Pulse Ox 100% on R/A; vc 20:58 BP 104 / 52; Pulse 93; Resp 22; Temp 99.1; Pulse Ox 96% on R/A; vc 22:00 BP 112 / 72; Pulse 90; Resp 27; Pulse Ox 99% on R/A; vc 23:00 BP 99 / 58; Pulse 95; Resp 23; Pulse Ox 98% on R/A; vc 23:30 BP 106 / 56; Pulse 90; Resp 22; Temp 98.7(O); Pulse Ox 97% ; rv ED Course: 16:00 Maintain EMS IV. Dressing intact. Site clean \T\ dry. Gauge \T\ site: 20G R AC. sv 16:08 Patient arrived in ED. sv 16:09 Isabel Jarvis, RN is Primary Nurse. sv 16:10 Patient has correct armband on for positive identification. Placed in gown. Bed in low sv position. Call light in reach. Side rails up X2. Pulse ox on. NIBP on. Door closed. Head of bed elevated. 16:11 Triage completed. sv 16:12 Arm band placed on. sv 16:13 Daria Erickson FNP-C is PHCP. snw 16:13 Dena Ameczua MD is Attending Physician. snw 16:40 Inserted saline lock: 22 gauge in left forearm, using aseptic technique. ,using aseptic sv technique. done by Daria [employer] Blood collected. 17:40 XRAY Chest (1 view) In Process Unspecified. EDMS 18:24 CT Abd/Pelvis - IV Contrast Only In Process Unspecified. EDMS 18:39 Awaiting radiology results. sv 19:18 Report given to Carlos GREEN. sv 19:43 Primary Nurse role handed off by Isabel Jarvis RN sv 19:44 Sindy Lakhani RN is Primary Nurse. vc 20:07 Dena Kaur MD is Hospitalizing Provider. snw 23:16 Flu and/or RSV swab sent to lab. Strep swab sent to lab. rv 08/16 00:00 No provider procedures requiring assistance completed. IV is patent, with fluids rv infusing freely, with good blood return, Patient admitted, IV remains in place. Administered Medications: 08/15 17:24 Drug: NS 0.9% 500 ml Route: IV; Rate: bolus; Site: right antecubital; ss 18:37 Follow up: Response: No adverse reaction; IV Status: Completed infusion; IV Intake: sv 500ml 19:30 Drug: Zosyn 3.375 grams Route: IVPB; Infused Over: 60 mins; Site: right antecubital; rv Intake: 18:37 IV: 500ml; Total: 500ml. sv Outcome: 20:07 Decision to Hospitalize by Provider. snw 08/16 00:00 Admitted to Tele accompanied by tech, room 402. rv Condition: good 00:00 Instructed on the need for admit. rv 00:07 Patient left the ED. rv Signatures: Dispatcher [employer] EDMS Isabel Jarvis RN RN sv Gay, Steven, RN RN Daria Erickson FNP-C NYLON OPERATOR-Csnw Ayaka Rod RN RN Saúl Wick RN RN rv Sindy Lakhani RN RN vc Corrections: (The following items were deleted from the chart) 00:14 08/15 23:30 BP 106 / 56; vc rv
--- NOTE | 2019-08-16 20:08 | EDPHYS ---
Physician Documentation [facility] Name: Keysha Mejia Age: 84 yrs Sex: Female : 1935 Arrival Date: 08/16/2019 Time: 16:08 Bed 5 Private MD: ED Physician Dena Amezcua HPI: 08/15 17:30 This 84 yrs old Female presents to ER via EMS with complaints of Abdominal snw Pain, Nausea/Vomiting/Diarrhea, Fever. 17:30 The patient presents with abdominal pain in the left lower quadrant. Onset: The snw symptoms/episode began/occurred gradually, intermittently over the past several months "bouts of diverticulitis" , usually gets Cipro and Flagyl. Was in [facility] for two days on Cipro and Flagyl and got dc'd with Augmentin and Flagyl. S/s recurred and were worse. Pt has hx of C. diff but states stool does not smell like C. diff. Last diarrhea, dark brown, semi formed, no blood. Pt has seen Dr. Stokes and Dr. Springer re: diverticulitis. Had CoVid 19 swab in April 26 to cardiac ablation procedure. . The symptoms do not radiate. Associated signs and symptoms: Pertinent positives: nausea, vomiting, and diarrhea. The symptoms are described as crampy. Severity of pain: At its worst the pain was moderate severe in the emergency department the pain is unchanged. The patient has experienced similar episodes in the past, multiple times, with the last episode occurring last week. The patient has been recently seen by a physician: as noted. 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 - Social history:: Smoking status: Patient denies any tobacco usage or history of. ROS: 17:28 Eyes: Negative for injury, pain, redness, and discharge, ENT: Negative for injury, snw pain, and discharge, Neck: Negative for injury, pain, and swelling, Cardiovascular: Negative for chest pain, palpitations, and edema, Respiratory: Negative for shortness of breath, cough, wheezing, and pleuritic chest pain. 17:28 Back: Negative for injury and pain, : Negative for injury, bleeding, discharge, and swelling, MS/Extremity: Negative for injury and deformity, Skin: Negative for injury, rash, and discoloration, Neuro: Negative for headache, weakness, numbness, tingling, and seizure, Psych: Negative for depression, anxiety, suicide ideation, homicidal ideation, and hallucinations. 17:28 Constitutional: Positive for body aches, fever, malaise, poor PO intake. 17:28 Abdomen/GI: Positive for abdominal pain, nausea, vomiting, and diarrhea, abdominal cramps. Exam: 17:26 Head/Face: Normocephalic, atraumatic. Eyes: Pupils equal round and reactive to light, snw extra-ocular motions intact. Lids and lashes normal. Conjunctiva and sclera are non-icteric and not injected. Cornea within normal limits. Periorbital areas with no swelling, redness, or edema. ENT: Nares patent. No nasal discharge, no septal abnormalities noted. Tympanic membranes are normal and external auditory canals are clear. Oropharynx with no redness, swelling, or masses, exudates, or evidence of obstruction, uvula midline. Mucous membranes moist. Neck: Trachea midline, no thyromegaly or masses palpated, and no cervical lymphadenopathy. Supple, full range of motion without nuchal rigidity, or vertebral point tenderness. No Meningismus. Chest/axilla: Normal chest wall appearance and motion. Nontender with no deformity. No lesions are appreciated. 17:26 Respiratory: Lungs have equal breath sounds bilaterally, clear to auscultation and percussion. No rales, rhonchi or wheezes noted. No increased work of breathing, no retractions or nasal flaring. 17:26 Back: No spinal tenderness. No costovertebral tenderness. Full range of motion. Skin: Warm, dry with normal turgor. Normal color with no rashes, no lesions, and no evidence of cellulitis. MS/ Extremity: Pulses equal, no cyanosis. Neurovascular intact. Full, normal range of motion. Neuro: Awake and alert, GCS 15, oriented to person, place, time, and situation. Cranial nerves II-XII grossly intact. Motor strength 5/5 in all extremities. Sensory grossly intact. Cerebellar exam normal. Normal gait. Psych: Awake, alert, with orientation to person, place and time. Behavior, mood, and affect are within normal limits. 17:26 Constitutional: The patient appears alert, awake, febrile. 17:26 Cardiovascular: Rate: tachycardic, Rhythm: regular, Pulses: no pulse deficits are appreciated, Heart sounds: normal. 17:26 Abdomen/GI: Inspection: abdomen appears normal, Bowel sounds: hyperactive, in all quadrants, Palpation: severe abdominal tenderness, in the left lower quadrant, Rectal exam: rectal tone normal, Stool: brown, guaiac negative, tenderness, that is mild, the exam is chaperoned by the nurse. Vital Signs: 16:21 BP 132 / 66; Pulse 90; Resp 16; Temp 100.1; Pulse Ox 99% ; sv 17:00 BP 118 / 60; Pulse 86; Resp 22; Pulse Ox 98% ; sv 18:00 BP 126 / 62; Pulse 86; Resp 22; Pulse Ox 100% ; sv 18:35 BP 124 / 59; Pulse 97; Resp 18; Pulse Ox 100% ; sv 19:00 BP 114 / 56; Pulse 91; Resp 20; Pulse Ox 99% on R/A; vc 20:00 BP 120 / 62; Pulse 88; Resp 20; Pulse Ox 100% on R/A; vc 20:58 BP 104 / 52; Pulse 93; Resp 22; Temp 99.1; Pulse Ox 96% on R/A; vc 22:00 BP 112 / 72; Pulse 90; Resp 27; Pulse Ox 99% on R/A; vc 23:00 BP 99 / 58; Pulse 95; Resp 23; Pulse Ox 98% on R/A; vc 23:30 BP 106 / 56; Pulse 90; Resp 22; Temp 98.7(O); Pulse Ox 97% ; rv MDM: 16:56 Patient medically screened. snw 17:35 Data reviewed: vital signs, nurses notes. Data interpreted: Pulse oximetry: on room air snw is 99 %. Interpretation: normal. Counseling: I had a detailed discussion with the patient and/or guardian regarding: the historical points, exam findings, and any diagnostic results supporting the discharge/admit diagnosis, lab results. 19:36 Physician consultation: John Lara MD was called at 19:36, was contacted at 19:36, snw regarding consult, patient's condition, and will see patient shortly, would like admission per Dr. Dena Kaur MD. 08/15 16:22 Order name: Basic Metabolic Panel; Complete Time: 17:53 snw 08/15 16:22 Order name: CBC with Diff; Complete Time: 18:55 snw 08/15 16:22 Order name: LFT's; Complete Time: 17:53 snw 08/15 16:22 Order name: Magnesium; Complete Time: 17:53 snw 08/15 16:22 Order name: NT PRO-BNP; Complete Time: 17:53 snw 08/15 16:22 Order name: PT-INR; Complete Time: 17:12 snw 08/15 16:22 Order name: COVID-19 snw 08/15 16:22 Order name: Flu snw 08/15 16:22 Order name: Strep snw 08/15 16:22 Order name: Lactate; Complete Time: 17:12 snw 08/15 16:30 Order name: Ferritin; Complete Time: 17:53 EDMS 08/15 16:39 Order name: Blood Culture Adult (2) sv 08/15 18:55 Order name: CBC Smear Scan; Complete Time: 18:55 EDMS 08/15 16:22 Order name: XRAY Chest (1 view); Complete Time: 18:49 snw 08/15 16:22 Order name: IV Saline Lock; Complete Time: 17:11 snw 08/15 16:22 Order name: Labs collected and sent; Complete Time: 17:11 snw 08/15 16:22 Order name: O2 Per Protocol; Complete Time: 17:11 snw 08/15 16:22 Order name: O2 Sat Monitoring; Complete Time: 17:11 snw 08/15 16:22 Order name: Droplet/Contact Precautions; Complete Time: 17:12 snw 08/15 16:56 Order name: CT Abd/Pelvis - IV Contrast Only; Complete Time: 18:49 snw 08/15 16:59 Order name: Labs - recollect needed; Complete Time: 17:24 ss 08/15 19:43 Order name: TS snw 08/15 19:46 Order name: CONS Physician Consult EDMS Administered Medications: 17:24 Drug: NS 0.9% 500 ml Route: IV; Rate: bolus; Site: right antecubital; 18:37 Follow up: Response: No adverse reaction; IV Status: Completed infusion; IV Intake: sv 500ml 19:30 Drug: Zosyn 3.375 grams Route: IVPB; Infused Over: 60 mins; Site: right antecubital; rv Disposition: 08/16 07:04 Co-signature as Attending Physician, Dena Amezcua MD. ma2 Disposition: 08/16/19 20:07 Hospitalization ordered by Dena Kaur for Inpatient Admission. Preliminary diagnosis is Diverticulitis of large intestine without perforation or abscess without bleeding. - Bed requested for Telemetry/MedSurg (Inpatient). - Status is Inpatient Admission. rv - Condition is Stable. - Problem is an acute exacerbation. - Symptoms have worsened. Signatures: Dispatcher [employer] EDIsabel Amador RN RN sv Webb, Martha, RN RN mw Therrien, Shelly, DIRECTOR [employer]-C DIRECTOR INBOUND SALES-CsnAyaka Nick RN RN ss Alzahri, Mohammad, MD MD [facility] Saúl Wick RN RN rv Corrections: (The following items were deleted from the chart) 08/15 16:30 16:27 FERRITIN+C.LAB.BRZ ordered. [facility] EDSC 20:48 20:07 Hospitalization Ordered by Dena Kaur MD for Inpatient Admission. Preliminary mw diagnosis is Diverticulitis of large intestine without perforation or abscess without bleeding. Bed requested for Telemetry/MedSurg (Inpatient). Status is Inpatient Admission. Condition is Stable. Problem is an acute exacerbation. Symptoms have worsened. snw 08/16 00:07 08/15 20:48 08/16/2019 20:07 Hospitalization Ordered by Dena Kaur MD for Inpatient rv Admission. Preliminary diagnosis is Diverticulitis of large intestine without perforation or abscess without bleeding. Bed requested for Telemetry/MedSurg (Inpatient). Status is Inpatient Admission. Condition is Stable. Problem is an acute exacerbation. Symptoms have worsened. mw
[2019-08-17 00:14] VITALS: BMI 19.2
[2019-08-17] MEDS ORDERED: ACETAMINOPHEN 500 MG TAB PO PRN (00:17)
[2019-08-17] MEDS ORDERED: MORPHINE 4 MG/ML SYR IV PRN (00:17)
[2019-08-17] MEDS: NA CHLORIDE 0.9% 1,000 ML IV SCH ×3 (00:25→20:17)
[2019-08-17] MEDS: PIPER/TAZO/NS 3.375gm 3.375 GM/100 ML BAG IVPB SCH ×4 (01:00→16:30)
[2019-08-17] MEDS ORDERED: PIPER/TAZO/NS 3.375gm 6.750 GM/200 ML BAG ONE (01:06)
[2019-08-17 04:28] LABS: Basophils % 0.4 % (0-1.3); Hematocrit 33.3 % (36.0-45.0); Lymphocytes % 7.1 % (15.3-44.8); MPV 9.2 fL (7.6-11.3); RBC Red Blood Cell Count 3.54 M/uL (3.86-4.86)
[2019-08-17 04:46] LABS: ALT/SGPT 10 U/L (12-78); AST/SGOT 13 U/L (15-37); Albumin 2.7 g/dL (3.4-5.0); Alkaline Phosphatase 32 U/L (45-117); BUN Blood Urea Nitrogen 10 mg/dL (7-18); Bicarbonate 22 mmol/L (21-32); Bilirubin Direct 0.3 mg/dL (0-0.2); Bilirubin Total 0.8 mg/dL (0.2-1.0); Glucose Level 71 mg/dL (74-106); Potassium 3.8 mmol/L (3.5-5.1); Protein, Total 6.1 g/dL (6.4-8.2); Sodium Level 140 mmol/L (136-145)
[2019-08-17] MEDS: LEVOTHYROXINE SOD 0.025 MG TAB PO SCH (05:44)
[2019-08-17] MEDS: METOPROLOL XL 25 MG TAB PO SCH ×3 (05:49→20:31)
[2019-08-17] MEDS: HOME MED 1 EA UNK (Mirabegron [Myrbetriq] 50 MG) PO SCH (07:27)
--- NOTE | 2019-08-17 07:59 | P.PN ---
Subjective Date of Service: 08/17/19 Subjective: Improving Patient still having some pain. Pain is in the right lower quadrant. Minimal improvement. Continue with antibiotics and pain control. Review of Systems 10-point ROS is otherwise unremarkable Physical Examination - Vital Signs Temperature: 97.9 F Blood Pressure: 98/55 Pulse: 84 Respirations: 18 Pulse Ox (%): 97 - Physical Exam General: Alert, In no apparent distress, Oriented x3 Respiratory: Clear to auscultation bilaterally, Normal air movement Cardiovascular: Regular rate/rhythm, Normal S1 S2 Gastrointestinal: Normal bowel sounds, Soft and benign, Non-distended, No tenderness Musculoskeletal: No clubbing, No swelling, No tenderness Neurological: Normal speech - Studies Laboratory Data (last 24 hrs) 08/16/19 17:16: Sodium 139, Potassium 4.0, BUN 10, Creatinine 0.70, Glucose 85, Magnesium 2.0, Total Bilirubin 0.8, AST 15, ALT 9 L, Alkaline Phosphatase 33 L 08/16/19 16:44: PT 28.4 H, INR 2.45 08/16/19 16:44: WBC 15.9 H, Hgb 12.3, Hct 37.7, Plt Count 179 Microbiology Data (last 24 hrs): 08/16/19 16:27 Nasopharnyx Coronavirus COVID-19 PCR - Final Medications List Reviewed: Yes Assessment & Plan - Problems (Diagnosis) (1) Right lower quadrant abdominal pain Status: Acute (2) History of diverticulitis Status: Acute (3) Atrial fibrillation Status: Chronic Qualifiers: (4) Hyperlipidemia Status: Chronic Qualifiers: (5) Hypertension Status: Chronic Qualifiers: (6) Hypothyroidism Status: Chronic Qualifiers: - Plan Continue with current plan of care as mentioned below 1. Continue with IV hydration 2. Continue with IV antibiotics 3. Continue with pain control 4. NPO 5. GI & general surgery consultation; 6. Serial H&H, and we will monitor CBC, BMP, LFTs and lipase along with electrolytes. 7. Continue with cardiac medications; patient is on Xarelto so would not recommend any surgeries at least for 48-72 hr. 8. GI and DVT prophylaxis Discharge Plan: Home Plan to discharge in: Greater than 2 days - Advance Directives Does patient have a Living Will: Yes Does patient have a Durable POA for Healthcare: Yes - Code Status/Comfort Care Code Status: Full Code Critical Care: No Time Spent Managing PTS Care (In Minutes): 30
--- NOTE | 2019-08-17 07:59 | P.HP ---
Certification for Inpatient Patient admitted to: Inpatient With expected LOS: >2 Midnights Patient will require the following post-hospital care: None Practitioner: I am a practitioner with admitting privileges, knowledge of patient current condition, hospital course, and medical plan of care. Services: Services provided to patient in accordance with Admission requirements found in Title 42 Section 412.3 of the Code of Federal Regulations Patient History Date of Service: 08/16/19 Reason for admission: Right lower quadrant tenderness History of Present Illness: Patient is an 84-year-old female with history of diverticulitis who presents to the emergency room with right lower quadrant pain. She has been having this recurrently for the last month. She has had tube course of antibiotics which have alleviated her pain; however, when she stops her antibiotic the pain returns a few days later. She had imaging study done as [facility] which revealed appendicitis. This was treated with antibiotics. She saw her GI doctor who referred her to a colorectal surgeon. She spoke to colorectal surgeon in [place] who stated that her risk of surgery for diverticulum would be high and at her age she would treat her conservatively. She had been doing well after her last course of antibiotics until her pain return. This was in the right lower quadrant. Patient had a CT scan performed here which revealed appendicitis. General surgeon was Consulted and patient was started on IV antibiotics per the recommendations. Will Consult GI and admit her to the hospital for further evaluation. Allergies scopolamine Allergy (Verified 06/08/16 23:15) Rash raloxifene HCl [From Evista] Adverse Reaction (Verified 06/08/16 23:15) Rash Scopolamine HBr Allergy (Uncoded 06/08/16 23:15) Unknown Home Medications: Amiodarone HCl 100 mg PO SEECOM 06/08/16 Atorvastatin Calcium 40 mg PO BEDTIME 06/08/16 Rivaroxaban [Xarelto*] 15 mg PO BEDTIME 06/08/16 Cholecalciferol (Vitamin D3) [Vitamin D 400 IU TAB*] 400 unit PO DAILY 08/17/19 Fenofibrate [Tricor*] 160 mg PO BEDTIME 08/17/19 L.acidoph,Paracasei, B.lactis [Probiotic] 1 cap PO DAILY 08/17/19 Levothyroxine Sodium 25 mcg PO 0600 08/17/19 Metoprolol Succinate 25 mg PO BID 06/22/20 Mirabegron [Myrbetriq] 50 mg PO DAILY 08/17/19 Multivitamin 1 tab PO DAILY 08/17/19 Vit A,C & E/Lutein/Minerals [Ocuvite Tablet] 1 tab PO DAILY 08/17/19 levETIRAcetam [Levetiracetam] 250 mg PO BID 08/17/19 - Past Medical/Surgical History Has patient received pneumonia vaccine in the past: Yes Diabetic: No -: Atrial fibrillation on chronic anti coagulation -: Hyperlipidemia -: Hypertension -: History of presyncope -: Hypothyroidism -: ablation (June 2019) -: Bilateral oophorectomy -: Back surgery -: Bilat lens implants; bilat cataract surgery -: Total right knee replacement -: tonsillectomy -: left knee arthroscopy -: benign breast bipsy -: trigger finger release Psychosocial/ Personal History: She is a . She lives by herself. She has no children. She is retired nurse. - Family History Father Medical History: Cancer Notes: Lung and brain Mother Medical History: Heart disease, Stroke Notes: A-fib Sister History Unknown: Yes Medical History: Heart disease, Diabetes, Stroke Notes: sisters x3 with hx of stroke; sisters x2 with hx of DM; sister x1 with hx of HTN; sister x1 with hx of cerebral insufficientcy - Social History Smoking Status: Never smoker Alcohol use: No CD- Drugs: No Caffeine use: No Place of Residence: Home Review of Systems 10-point ROS is otherwise unremarkable Physical Examination - Vital Signs Temperature: 97.9 F Blood Pressure: 98/55 Pulse: 84 Respirations: 18 Pulse Ox (%): 97 - Physical Exam General: Alert, In no apparent distress, Oriented x3 HEENT: Atraumatic, PERRLA, Mucous membr. moist/pink, EOMI, Sclerae nonicteric Neck: Supple, 2+ carotid pulse no bruit, No LAD, Without JVD or thyroid abnormality Respiratory: Clear to auscultation bilaterally, Normal air movement Cardiovascular: Regular rate/rhythm, Normal S1 S2, No murmurs Gastrointestinal: Normal bowel sounds, Soft and benign, Non-distended, Tenderness (Right lower quadrant tenderness) Musculoskeletal: No clubbing, No swelling, No tenderness Neurological: Normal gait, Normal speech, Normal strength at 5/5 x4 extr, Normal tone, Sensation intact, Cranial nerves 3-12 intact Lymphatics: No axilla or inguinal lymphadenopathy - Studies Laboratory Data (last 24 hrs) 08/16/19 17:16: Sodium 139, Potassium 4.0, BUN 10, Creatinine 0.70, Glucose 85, Magnesium 2.0, Total Bilirubin 0.8, AST 15, ALT 9 L, Alkaline Phosphatase 33 L 08/16/19 16:44: PT 28.4 H, INR 2.45 08/16/19 16:44: WBC 15.9 H, Hgb 12.3, Hct 37.7, Plt Count 179 Microbiology Data (last 24 hrs): 08/16/19 16:27 Nasopharnyx Coronavirus COVID-19 PCR - Final Assessment & Plan - Problems (Diagnosis) (1) Right lower quadrant abdominal pain Current Visit: Yes Status: Acute (2) History of diverticulitis Current Visit: Yes Status: Acute (3) Atrial fibrillation Current Visit: No Status: Chronic Qualifiers: (4) Hyperlipidemia Current Visit: No Status: Chronic Qualifiers: (5) Hypertension Current Visit: No Status: Chronic Qualifiers: (6) Hypothyroidism Current Visit: No Status: Chronic Qualifiers: - Plan 1. Continue with IV hydration 2. Continue with IV antibiotics 3. Continue with pain control 4. NPO 5. GI & general surgery consultation; 6. Serial H&H, and we will monitor CBC, BMP, LFTs and lipase along with electrolytes. 7. Continue with cardiac medications; patient is on Xarelto so would not recommend any surgeries at least for 48-72 hr. 8. GI and DVT prophylaxis Discharge Plan: Home Plan to discharge in: Greater than 2 days - Advance Directives Does patient have a Living Will: Yes Does patient have a Durable POA for Healthcare: Yes - Code Status/Comfort Care Code Status Assessed: Yes Code Status: Full Code Critical Care: No Time Spent Managing PTS Care (In Minutes): 45
[2019-08-17] MEDS: OCUVITE (VIT A,C & E/LUTEIN/MINERAL) TABLET PO SCH (08:29)
[2019-08-17] MEDS: AMIODARONE HCL 200 MG TAB PO SCH (08:29)
[2019-08-17] MEDS: MULTIVITAMIN TAB PO SCH (08:29)
[2019-08-17] MEDS: VITAMIN D 400 UNIT TAB PO SCH (08:29)
[2019-08-17] MEDS: LACTOBACILLUS/ACIDOPHILUS TAB PO SCH (08:29)
[2019-08-17] MEDS: levETIRAcetam 500 MG TAB PO SCH ×2 (08:30→20:31)
--- NOTE | 2019-08-17 10:36 | P.PN ---
Subjective Date of Service: 08/17/19 Chief Complaint: Right lower quadrant tenderness Subjective: Improving (Patient still has pain in the bilateral lower quadrants, but improved. had a BM today, passing gas.) Physical Examination - Vital Signs Temperature: 97.6 F Blood Pressure: 109/53 Pulse: 99 Respirations: 20 Pulse Ox (%): 95 - Physical Exam General: Alert, In no apparent distress, Cooperative HEENT: Mucous membr. moist/pink Respiratory: Normal air movement Cardiovascular: Other (Pacemaker in place) Gastrointestinal: Other (soft, continues to have lower abdominal pain worse in LLQ and suprapubic position, less so in RLQ, but present. ) Musculoskeletal: No clubbing, No swelling Neurological: Normal speech - Studies Laboratory Data (last 24 hrs) 08/16/19 17:16: Sodium 139, Potassium 4.0, BUN 10, Creatinine 0.70, Glucose 85, Magnesium 2.0, Total Bilirubin 0.8, AST 15, ALT 9 L, Alkaline Phosphatase 33 L 08/16/19 16:44: PT 28.4 H, INR 2.45 08/16/19 16:44: WBC 15.9 H, Hgb 12.3, Hct 37.7, Plt Count 179 Microbiology Data (last 24 hrs): 08/16/19 16:27 Nasopharnyx Coronavirus COVID-19 PCR - Final Assessment And Plan - Current Problems (Diagnosis) (1) Diverticulitis large intestine Current Visit: Yes Status: Acute Plan: -84 year old woman with diverticulitis vs appendicitis - continue zosyn - recommend PICC line and consideration for [facility] antibiotic treatment for chronic diverticulitis - check coags - consider repeat CT scan with IV / PO contrast to rule out appendicitis
--- NOTE | 2019-08-17 11:10 | CON ---
Date of Consultation: 08/16/2019 Brief History Of Present Illness: Patient is an 84-year-old female with a history of recur rent episodes of diverticulitis incompletely treated, who presents to the emergency room with left lo wer quadrant suprapubic and lower abdominal pain. She states that the pain is predominantly in the s uprapubic area as well as left lower quadrant with some radiation to the right lower quadrant as well . She just has generalized tenderness in the lower abdomen below her umbilicus. This is somewhat si milar to her prior episodes where she had significant abdominal pain. She had been seen in [facility], admitted briefly, treated with antibiotics and ultimately, I will refer to Dr. Stokes. She spo ke to him, who states that she states that she was high risk for her age and as such was to be treate d with antibiotics without consideration for surgery at this point. Her last episode was approximate ly 2 weeks ago. She took a 5-7 day course of antibiotics, but since stopping the antibiotics, her pa in got progressively worse. She also saw Dr. Hamilton who referred her to Dr. Stokes for continued workup . Past Medical History: Significant for atrial fibrillation on chronic anticoagulation with Coumadin, hypertension, hyperlipidemia, presyncope, hypothyroidism. Past Surgical History: Includes a cardiac ablation for atrial flutter, bilateral oophorectomy, back surgery, bilateral lens implants, bilateral cataract surgery, total knee replacement on the right, to nsillectomy, left knee arthroscopy, benign breast biopsy, cholecystectomy, re-exploratory laparotomy for postoperative bleeding after cholecystectomy. Family History: Significant for lung and brain cancer, heart disease and stroke in her mother. Her sister has heart disease, stroke. Allergies: INCLUDE SCOPOLAMINE, EVISTA. Home Medications: Include, 1.Amiodarone. 2.Atorvastatin. 3.Xarelto. 4.Vitamin D3. 5.TriCor. 6.Probiotic. 7.Levothyroxine. 8.Metoprolol. 9.Myrbetriq. 10.Multivitamin. 11.Ocuvite. 12.Levetiracetam. Review of Systems: Ten-point review of systems other than HPI, she had mild fever at times and subjective weakness. Physical Examination: At the time of examination, Vital Signs: Her vital signs were a BMI of 19.2, her blood pressure is 106/56, pulse is 95, respirat ory rate 23, temperature 99.1. General: She is awake, alert, and oriented. Psychiatric: Appropriate, conversive. HEENT: Normocephalic. Sclerae icteric. Mucous members are moist. Oropharynx clear. Neck: Supple. No JVD. Chest: Normal expansion and excursion. Cardiovascular: Regular rate and rhythm. Pulmonary: Clear to auscultation bilaterally. Abdomen: Soft with positive bilateral lower quadrant and lower abdominal tenderness to palpation. S he has moderate voluntary guarding and mild rebound. Pelvis is stable. Extremities: No clubbing, cyanosis, or edema. Skin: Warm and dry. Laboratory Data: Reveals a white blood cell count of 15.9, hemoglobin is 12.3, hematocrit 37.7, plat elet count is 179, neutrophils 86%. Her PT 28.4, INR 2.45. Her sodium 139, potassium 4.0, chloride 106, carbon dioxide 25, BUN 10, creatinine 0.7, glucose is 85, lactic acid is 1.4, calcium 9.4. Her total bilirubin 0.8, direct component 0.3, AST 19, ALT 9, alkaline phosphatase was 33. She had imagi ng performed, which included a CT of the abdomen and pelvis officially read as the patient probably h as appendicitis, marked thickening wall distal sigmoid colon, could be secondary diverticulitis, seco ndary inflammation of the suspected appendicitis or mass. Assessment And Plan: This is an 84-year-old female, who presents with signs and symptoms of divertic ulitis as she has significantly more tenderness in the left lower quadrant than in the right. She do es have imaging findings of possible appendicitis as well as diverticulitis. I believe this is likel y more reactive. However, given her anticoagulation status and current physical exam, I feel that di verticulitis is a more likely cause of her pain while she has tenderness in the right lower quadrant, it is significantly worse in the left lower quadrant and in the suprapubic area. Therefore, I recom mend IV fluid hydration, n.p.o., serial abdominal exams, antibiotic coverage with Zosyn, and should t he patient show non-reassurance or other consideration, would be a repeat CT scan with IV and p.o. co ntrast to better delineate the appendix to rule out appendicitis when her anticoagulation is correcte d. I have explained risks, benefits, and alternatives of the above stated plan. The patient agrees to as indicated. PRETTY/KATELYN Voice ID: [id number] Report ID: [id number]
--- NOTE | 2019-08-17 13:50 | RAD REPORT ---
EXAM DESCRIPTION: CT - Abdomen Pelvis W Contrast - 08/17/2019 1:35 pm CLINICAL HISTORY: Abdominal pain. COMPARISON: August 16, 2019 cat scan TECHNIQUE: Computed axial tomography of the abdomen and pelvis was obtained. 100 cc Isovue-300 is ad ministered intravenously. Oral contrast was given. All CT scans are performed using dose optimization technique as appropriate and may include automated exposure control or mA/KV adjustment according to patient size. FINDINGS: The appendix is completely opacified with contrast Severe thickening of the wall of the sigmoid colon persists. No other significant change IMPRESSION: The appendix is completely opacified with contrast which indicates that it is normal. Severe thickening of the wall of the sigmoid colon persists presumably secondary to diverticulitis. A mass can also result in this appearance and close follow-up is advised
[2019-08-17] MEDS: ATORVASTATIN 40 MG TAB PO SCH (20:31)
[2019-08-17] MEDS: FENOFIBRATE 160 MG TAB PO SCH (20:31)
[2019-08-18] MEDS: PIPER/TAZO/NS 3.375gm 3.375 GM/100 ML BAG IVPB SCH ×4 (00:37→17:35)
[2019-08-18] MEDS: NA CHLORIDE 0.9% 1,000 ML IV SCH ×4 (05:31→21:55)
[2019-08-18] MEDS: LEVOTHYROXINE SOD 0.025 MG TAB PO SCH (05:31)
[2019-08-18] MEDS: HOME MED 1 EA UNK (Mirabegron [Myrbetriq] 50 MG) PO SCH (09:00)
[2019-08-18] MEDS: OCUVITE (VIT A,C & E/LUTEIN/MINERAL) TABLET PO SCH (09:17)
[2019-08-18] MEDS: levETIRAcetam 500 MG TAB PO SCH ×2 (09:17→20:25)
[2019-08-18] MEDS: VITAMIN D 400 UNIT TAB PO SCH (09:17)
[2019-08-18] MEDS: METOPROLOL XL 25 MG TAB PO SCH ×2 (09:18→20:26)
[2019-08-18] MEDS: LACTOBACILLUS/ACIDOPHILUS TAB PO SCH ×2 (09:18→20:24)
[2019-08-18] MEDS: MULTIVITAMIN TAB PO SCH (09:18)
[2019-08-18] MEDS: AMIODARONE HCL 200 MG TAB PO SCH (09:18)
[2019-08-18 09:37] LABS: Absolute Lymphocytes (CBC) 0.8 K/uL (0.7-4.9); Basophils % 0.5 % (0-1.3); Hematocrit 27.7 % (36.0-45.0); MPV 8.8 fL (7.6-11.3); RBC Red Blood Cell Count 2.94 M/uL (3.86-4.86)
--- NOTE | 2019-08-18 10:38 | PN ---
Date of Progress Note: 08/18/2019 Subjective: Patient seen and examined. Chart reviewed. Case discussed with RN, Dr. Lara. Evan conley is still reporting some abdominal pain, but no nausea or vomiting, did have some diarrhea due to t he contrast. Patient is agreeable to SNF. Medications List: Reviewed. Code Status: Full. Physical Examination: Vital Signs: Temperature 98.4, heart rate 86, blood pressure 101/52, respirations 18, O2 97% on room air. General: Awake, alert, oriented x3, elderly female, in some mild distress due to pain, ill-appearing . CV: S1, S2. Regular rate and rhythm. Peripheral pulses present. RESPIRATORY: Moving air well bilaterally. No wheezing or stridor. No use of accessory muscles. GASTROINTESTINAL: Abdomen is soft. Tenderness to palpation in the lower quadrants. No rebound. Th ere is some voluntary guarding. No rigidity. Extremities: No clubbing, cyanosis, or edema. No calf tenderness. Neuro: Cranial nerves 2 through 12 intact grossly. No focal neurological deficits. Speech is abigail l. No facial asymmetry. Laboratory Data: WBC 8, H and H 9.2 and 27.7, platelets 143, neutrophils 81%. C diff assay is pendi ng. Blood cultures, no growth to date. Throat culture, normal upper respiratory jo ann. Stool cultu re is pending. Assessment: 84-year-old female with; 1.Acute diverticulitis. Continue with IV antibiotics. Surgery recommends conservative management a nd long-term IV antibiotics. PICC line has been placed. Patient considering halfway facilit y placement. Patient will go on Zosyn q.6 3.375 g. Patient has reached out to Dr. Stokes and was nons urgical candidate at that time earlier this year. She also needs to have repeat colonoscopy by Dr. Nena edwards once acute flare-up has resolved. 2.Right lower quadrant abdominal pain. Repeat CT scan does not show any appendicitis. Appreciate Syed Lara's input. 3.Atrial fibrillation, currently in sinus rhythm. Patient is on anticoagulation. We will resume as there is no surgical intervention planned. Continue with rate control. 4.Hyperlipidemia. Continue statin. 5.Essential hypertension, stable. We will continue home medications as appropriate. 6.Hypothyroidism. Continue replacement. Plan: DVT prophylaxis. Patient currently n.p.o. We will discuss with surgery regarding resuming p. o. medications. Continue to monitor electrolytes and stool culture. C diff is pending. Disposition: Transfer to SNF once accepted for long-term IV antibiotics. /KATELYN Voice ID: [id number] Report ID: [id number]
[2019-08-18 13:54] LABS: C.diff Antigen/Toxin Ag pos : Tox pos (NEG : NEG)
[2019-08-18] MEDS: VANCOMYCIN ORAL SOLN 250 MG/5 ML OSYR PO SCH ×2 (17:34→23:54)
--- NOTE | 2019-08-18 17:45 | P.PN ---
Subjective Date of Service: 08/18/19 Chief Complaint: Right lower quadrant tenderness Subjective: New changes (Repeat CT abdomen/pelvis reveals diverticulitis, no appendicitis.) Review of Systems 10-point ROS is otherwise unremarkable General: Weakness, Malaise Physical Examination - Vital Signs Temperature: 98.6 F Blood Pressure: 110/54 Pulse: 76 Respirations: 18 Pulse Ox (%): 98 Assessment And Plan - Current Problems (Diagnosis) (1) LLQ abdominal pain Current Visit: Yes Status: Acute (2) Abnormal CT of the abdomen Current Visit: Yes Status: Acute (3) Diverticulitis large intestine Current Visit: Yes Status: Acute (4) Right lower quadrant abdominal pain Current Visit: Yes Status: Acute (5) Atrial fibrillation Current Visit: No Status: Chronic Qualifiers: - Plan REC: 1) continue IV antibiotics and IVFs 2) diet as per surgery 3) colonoscopy in 4-6 weeks
[2019-08-18] MEDS: FENOFIBRATE 160 MG TAB PO SCH (20:24)
[2019-08-18] MEDS: ATORVASTATIN 40 MG TAB PO SCH (20:24)
[2019-08-18] MEDS: RIVAROXABAN 15 MG TABLET PO SCH (20:25)
[2019-08-18] MEDS ORDERED: TRAZODONE 50 MG TABLET ONE (23:58)
[2019-08-19] MEDS: VANCOMYCIN ORAL SOLN 250 MG/5 ML OSYR PO SCH ×3 (05:13→16:59)
[2019-08-19] MEDS: LEVOTHYROXINE SOD 0.025 MG TAB PO SCH (05:13)
[2019-08-19 05:59] LABS: Basophils % 0.5 % (0-1.3); Hematocrit 29.1 % (36.0-45.0); Lymphocytes % 17.6 % (15.3-44.8); MPV 8.6 fL (7.6-11.3); RBC Red Blood Cell Count 3.12 M/uL (3.86-4.86)
[2019-08-19 06:26] LABS: ALT/SGPT 11 U/L (12-78); AST/SGOT 17 U/L (15-37); Albumin 2.4 g/dL (3.4-5.0); Alkaline Phosphatase 41 U/L (45-117); BUN Blood Urea Nitrogen 4 mg/dL (7-18); Bicarbonate 27 mmol/L (21-32); Bilirubin Total 0.4 mg/dL (0.2-1.0); Glucose Level 79 mg/dL (74-106); Potassium 3.2 mmol/L (3.5-5.1); Protein, Total 5.7 g/dL (6.4-8.2); Sodium Level 146 mmol/L (136-145)
--- NOTE | 2019-08-19 08:37 | P.PN ---
Subjective Date of Service: 08/18/19 Chief Complaint: Right lower quadrant tenderness Subjective: Improving (Patient feels much better) Physical Examination - Vital Signs Temperature: 97.7 F Blood Pressure: 149/67 Pulse: 65 Respirations: 16 Pulse Ox (%): 98 - Physical Exam General: Alert, In no apparent distress, Cooperative Respiratory: Clear to auscultation bilaterally, Normal air movement Gastrointestinal: Other (soft, improved TTP, LLQ and suprapubic > RLQ. non- distended, minimal tympany) Assessment And Plan - Current Problems (Diagnosis) (1) Diverticulitis large intestine Current Visit: Yes Status: Acute Plan: -84 year old woman with C.Diff Colitis - DC zosyn, continue PO Vanc - check coags - consider LTAC for complete resolution of C.Diff Colitis - continue clear liquid diet, advance to low residue - continue medical management - can return after resolution of colitis to discuss surgical options for history of recurrent diverticulitis as outpatient
[2019-08-19] MEDS: HOME MED 1 EA UNK (Mirabegron [Myrbetriq] 50 MG) PO SCH (09:00)
[2019-08-19] MEDS: VITAMIN D 400 UNIT TAB PO SCH (09:01)
[2019-08-19] MEDS: MULTIVITAMIN TAB PO SCH (09:01)
[2019-08-19] MEDS: LACTOBACILLUS/ACIDOPHILUS TAB PO SCH ×2 (09:01→21:45)
[2019-08-19] MEDS: OCUVITE (VIT A,C & E/LUTEIN/MINERAL) TABLET PO SCH (09:01)
[2019-08-19] MEDS: levETIRAcetam 500 MG TAB PO SCH ×2 (09:01→21:45)
[2019-08-19] MEDS: METOPROLOL XL 25 MG TAB PO SCH ×2 (09:02→21:46)
[2019-08-19] MEDS: AMIODARONE HCL 200 MG TAB PO SCH (09:02)
--- NOTE | 2019-08-19 10:29 | P.PN ---
Subjective Date of Service: 08/19/19 Chief Complaint: Right lower quadrant tenderness Subjective: Improving (Patient feels much better, ambulatory today, tolerating clears) Physical Examination - Vital Signs Temperature: 97.7 F Blood Pressure: 149/67 Pulse: 65 Respirations: 16 Pulse Ox (%): 98 - Physical Exam General: Alert, In no apparent distress, Cooperative HEENT: Mucous membr. moist/pink Gastrointestinal: Other (soft, mild appropriate TTP, ND, improving. continues to have tenderness in LLQ> RLQ) Assessment And Plan - Current Problems (Diagnosis) (1) Diverticulitis large intestine Current Visit: Yes Status: Acute Plan: -84 year old woman with C.Diff Colitis - DC zosyn, continue PO Vanc - continue clear liquid diet, advance to low residue - continue medical management - can return after resolution of colitis to discuss surgical options for history of recurrent diverticulitis as outpatient
[2019-08-19] MEDS: NA CHLORIDE 0.9% 1,000 ML IV SCH ×3 (12:17→17:22)
--- NOTE | 2019-08-19 14:09 | RAD REPORT ---
EXAM DESCRIPTION: RAD - Chest Single View - 08/18/2019 1:38 am CLINICAL HISTORY: PICC Placement COMPARISON: None. TECHNIQUE: XR CHEST 1 VIEW 08/17/2019 10:59 PM CDT FINDINGS: The heart is enlarged. Left dual-chamber pacemaker is present. Lungs are clear without con solidation, atelectasis, mass or edema. There is no pleural effusion. There is no pneumothorax. There are no acute osseous findings. Right PICC line tip is in the mid SVC. IMPRESSION: Clear lungs. Electronically signed by: Puneet Hart MD 08/18/2019 1:30 AM CDT Due to temporary technical issues with the PACS/Fluency reporting system, reports are being signed by the in house radiologist without review as a courtesy to ensure prompt reporting. The interpreting r adiologist is fully responsible for the content of the report.
[2019-08-19] MEDS ORDERED: POTASSIUM CL SA 10 MEQ TAB PO ONE (14:58)
--- NOTE | 2019-08-19 15:37 | P.PN ---
Subjective Date of Service: 08/19/19 Chief Complaint: Right lower quadrant tenderness Subjective: New changes (C diff positive! She feels better now on po Vancomycin, previously on Zosyn. She notes C diff in 2018 and colonoscopy by outside GI in 2019.) Review of Systems 10-point ROS is otherwise unremarkable General: Weakness (Improved. ) Gastrointestinal: Abdominal Pain (Improved. ), Diarrhea (Improved.) Physical Examination - Vital Signs Temperature: 98.8 F Blood Pressure: 132/60 Pulse: 72 Respirations: 16 Pulse Ox (%): 98 - Physical Exam General: Alert, In no apparent distress, Oriented x3, Cooperative HEENT: Atraumatic, Normocephalic, PERRLA, EOMI Neck: Supple Respiratory: Normal air movement Cardiovascular: Normal pulses Gastrointestinal: No rebound, No guarding, Tenderness (mild at most) Neurological: Normal speech, Normal strength at 5/5 x4 extr Assessment And Plan - Current Problems (Diagnosis) (1) LLQ abdominal pain Current Visit: Yes Status: Acute Comment: Clostridium difficile colitis and/or diverticulitis. Appears to be C diff colitis. (2) Abnormal CT of the abdomen Current Visit: Yes Status: Acute (3) Diverticulitis large intestine Current Visit: Yes Status: Acute (4) Right lower quadrant abdominal pain Current Visit: Yes Status: Acute (5) Atrial fibrillation Current Visit: No Status: Chronic Qualifiers: (6) Clostridium difficile colitis Current Visit: Yes Status: Acute - Plan REC: 1) continue po Vancomycin and IVFs 2) diet as per surgery
--- NOTE | 2019-08-19 19:18 | PN ---
Date of Progress Note: 08/19/2019 Subjective: Patient seen and examined. Chart reviewed and case discussed with RN and Dr. Lara. P atient is doing better, was found to be C diff positive yesterday. Place on isolation. Medications list reviewed. Physical Examination: Vital Signs: Temperature 98.8, heart rate 72, blood pressure 132/60, respirations 16, O2 98% on room air. General: Awake, alert, oriented x3. Elderly female, not in any acute distress. CV: S1-S2, regular rhythm. Pulses present. RESPIRATORY: Moving air well bilaterally. No wheezing or stridor. Gastrointestinal: Abdomen is soft. Mild tenderness to palpation. No rebound or guardin g. Positive bowel sounds. Extremities: No clubbing, cyanosis, or edema. Neurologic: Nonfocal. Laboratory Data: Sodium 146, potassium 3.2, chloride 113, CO2 of 27, BUN 4, creatinine 0.54, glucose 79, calcium 8.6, albumin 2.4. WBC 5.7, H and H 9.7 and 29.1, platelets 151. Stool cultures pending . C diff assay antigen and toxin are positive. Assessment: An 84-year-old female with. 1.Acute colitis secondary to Clostridium difficile. Initially thought to be diverticulitis from osiel ging studies. Zosyn has been discontinued. Patient has been started on Vancocin 125 mg p.o. q.6 garrison rs. She has had Clostridium difficile previously. Appreciate Dr. Springer's and Dr. Lara's input, nonsurgical at this time. We will advance diet from clear liquids to low residue diet. Patient is a ble to tolerate clear liquids at this time. 2.Right lower quadrant abdominal pain. No appendicitis on repeat CT. No surgical intervention. 3.Atrial fibrillation, currently in sinus rhythm, status post pacemaker. Continue anticoagulation. Continue rate control. 4.Mixed hyperlipidemia, continue statin. 5.Essential hypertension, stable. Continue home medications as appropriate. 6.Hypothyroidism. We will continue replacement. 7.Hypokalemia. We will replace and monitor. 8.Deep vein thrombosis prophylaxis. Patient is back on oral anticoagulation with Xarelto. Plan: Likely discharge in a.m. if tolerates low residue diet. Will not require SNF placement as she does not need long-term IV antibiotics. Patient to follow up with General Surgery as outpatient aft er acute bout has resolved for surgical options. SA/MODL Voice ID: [id number] Report ID: [id number]
[2019-08-19] MEDS: FENOFIBRATE 160 MG TAB PO SCH (21:45)
[2019-08-19] MEDS: ATORVASTATIN 40 MG TAB PO SCH (21:45)
[2019-08-19] MEDS: RIVAROXABAN 15 MG TABLET PO SCH (21:48)
[2019-08-19] MEDS ORDERED: TRAZODONE 50 MG TABLET PO ONE (23:30)
[2019-08-20] MEDS: VANCOMYCIN ORAL SOLN 250 MG/5 ML OSYR PO SCH ×3 (00:29→11:53)
[2019-08-20] MEDS: LEVOTHYROXINE SOD 0.025 MG TAB PO SCH (04:57)
[2019-08-20] MEDS: NA CHLORIDE 0.9% 1,000 ML IV SCH (04:58)
[2019-08-20 05:20] LABS: Basophils % 0.8 % (0-1.3); Hematocrit 29.8 % (36.0-45.0); Lymphocytes % 26.8 % (15.3-44.8); MPV 7.9 fL (7.6-11.3); RBC Red Blood Cell Count 3.18 M/uL (3.86-4.86)
[2019-08-20 05:44] LABS: ALT/SGPT 12 U/L (12-78); AST/SGOT 17 U/L (15-37); Albumin 2.3 g/dL (3.4-5.0); Alkaline Phosphatase 38 U/L (45-117); BUN Blood Urea Nitrogen 3 mg/dL (7-18); Bicarbonate 27 mmol/L (21-32); Bilirubin Total 0.3 mg/dL (0.2-1.0); Glucose Level 82 mg/dL (74-106); Potassium 3.7 mmol/L (3.5-5.1); Protein, Total 5.4 g/dL (6.4-8.2); Sodium Level 146 mmol/L (136-145)
[2019-08-20] MEDS: MULTIVITAMIN TAB PO SCH (08:35)
[2019-08-20] MEDS: OCUVITE (VIT A,C & E/LUTEIN/MINERAL) TABLET PO SCH (08:35)
[2019-08-20] MEDS: levETIRAcetam 500 MG TAB PO SCH (08:35)
[2019-08-20] MEDS: AMIODARONE HCL 200 MG TAB PO SCH (08:36)
[2019-08-20] MEDS: METOPROLOL XL 25 MG TAB PO SCH (08:36)
[2019-08-20] MEDS: VITAMIN D 400 UNIT TAB PO SCH (08:36)
[2019-08-20] MEDS: LACTOBACILLUS/ACIDOPHILUS TAB PO SCH (08:36)
[2019-08-20] MEDS: HOME MED 1 EA UNK (Mirabegron [Myrbetriq] 50 MG) PO SCH (08:37)
[2019-08-20] MEDS ORDERED: POTASSIUM CL SA 10 MEQ TAB PO SCH (09:00)
[2019-08-20 09:48] VITALS: O2SAT 100
--- NOTE | 2019-08-20 14:13 | P.PN ---
Subjective Date of Service: 08/21/19 Chief Complaint: Right lower quadrant tenderness, abnormal CT, colitis Subjective: Improving Physical Examination - Vital Signs Temperature: 97.8 F Blood Pressure: 138/63 Pulse: 76 Respirations: 18 Pulse Ox (%): 100 Assessment And Plan - Current Problems (Diagnosis) (1) LLQ abdominal pain Status: Acute Comment: Clostridium difficile colitis and/or diverticulitis. Appears to be C diff colitis. (2) Abnormal CT of the abdomen Status: Acute (3) Diverticulitis large intestine Status: Acute (4) Right lower quadrant abdominal pain Status: Acute (5) Atrial fibrillation Status: Chronic Qualifiers: (6) Clostridium difficile colitis Status: Acute - Plan REC: 1) continue po Vancomycin and IVFs 2) diet as per surgery
--- NOTE | 2019-08-20 23:01 | DS ---
Date of Discharge: 08/20/2019 Consultants: Dr. Springer with GI, Dr. Lara with General Surgery. Procedures: None. Admitting Diagnoses: 1.Right lower quadrant abdominal pain. 2.History of diverticulitis. 3.Atrial fibrillation. 4.Mixed hyperlipidemia. 5.Essential hypertension. 6.Hypothyroidism. Discharge Diagnoses: 1.Acute Clostridium difficile colitis. 2.Right lower quadrant abdominal pain, improving. 3.Atrial fibrillation, paroxysmal, on anticoagulation. 4.Mixed hyperlipidemia, on statin, stable. 5.Essential hypertension, stable. 6.Hypothyroidism, on replacement, stable. 7.Hypokalemia replaced. 8.History of recurrent diverticulitis. Hospital Course: Patient is an 84-year-old female with a history of diverticulitis, atrial fibrillat ion on chronic anticoagulation, hyperlipidemia, hypertension, hypothyroidism, has a pacemaker, has holloway d ablation previously, comes in with right lower quadrant tenderness. CT scan showed appendicitis. She was started on IV antibiotics. She was on blood thinners due to her atrial fibrillation. [facility] Surgery was consulted. She was started on IV fluids as well. Patient had repeat CT scan done and did not show any appendicitis, did show diverticulitis. Patient recently been on multiple courses of antibiotics and had diarrhea, therefore C diff study was sent out and was positive. Patient was swi tched over from Zosyn to oral Vancocin. GI was consulted. Patient's white blood cell count improved . Her diarrhea slowed down. Her Eliquis was resumed. She did have some electrolyte abnormalities, which were corrected. COVID screening was negative. Patient's influenza screen and rapid strep scre en were also negative. Blood cultures did not show any growth to date. Patient improved. She was a ble to tolerate a diet. She was then doing well. Chest x-ray was clear. Repeat CT scan did not marielena w any appendicitis. She has seen Dr. Stokes in the past, colorectal surgeon and initially was not a ca ndidate for surgery due to her atrial fibrillation. Eliquis, now, she is back in sinus rhythm, [facility], still on blood thinners, has a pacemaker. Dr. Lara recommends elective surgery for her recurr ent diverticulitis. Patient also need a repeat colonoscopy once acute C diff has resolved. Patient was then doing well. She was afebrile, tolerating a diet and ambulating well. She was discharged ho ms after she was cleared by consultants standpoint. Medications: As per medication reconciliation list. She will finish off course of oral Vancocin for 14 days. Followup: Follow up with primary care physician in 2 days. Follow up with GI Dr. Springer in 2 weeks. Follow up with surgeon, Dr. Lara in 2-4 weeks. Return to ER for worsening condition. Diet: Heart healthy, low residue diet. Activity: As tolerated. Physical Examination: General: Awake, alert, oriented x3. Elderly female, not in any acute distress. CV: S1, S2. Regular rate and rhythm. Respiratory: Moving air well bilaterally. Abdomen: Soft. Minimal tenderness. No rebound or guarding. Positive bowel sounds. Extremities: No clubbing, cyanosis, or edema. Neurologic: Nonfocal. Total time spent discharging patient was 42 minutes. /KATELYN Voice ID: [id number] Report ID: [id number]
[2019-08-24 22:59] VITALS: BP 98/55; TEMP 97.9
--- NOTE | 2019-09-06 18:57 | CON ---
Date of Consultation: 08/17/2019 Reason For Consultation: Abdominal pain with abnormal CT scan revealing appendicitis and/or divertic ulitis. History Of Present Illness: Patient is an 84-year-old white female with history of diverticulitis wh o presented to hospital with right lower quadrant pain. CT scan performed which revealed appendiciti s and possible diverticulitis as well. Official reading said appendicitis with secondary sigmoid col on inflammation and she has a history of prior diverticulitis as well. Surgery has been consulted wi th suspicion that patient may indeed have diverticulitis instead of appendicitis was not clear at thi s point. Repeat CT scan has been ordered by Surgery. Past Medical History: Significant for diverticulitis, hypertension, hyperlipidemia, atrial fibrillat ion on chronic anticoagulation, presyncope, hypothyroidism, cardiac ablation, bilateral oophorectomy, back surgery, bilateral lens implants, bilateral cataract surgeries, right knee replacement, tonsill ectomy, right knee arthroscopy, benign breast biopsy, finger trigger release. Medications: Include amiodarone, atorvastatin, Xarelto, vitamin D3, Tricor, probiotic, levothyroxine , metoprolol, Myrbetriq, multivitamin, vitamin A, Levetiracetam. Allergies: SCOPOLAMINE, EVISTA; RASH. Family History: Father with lung and brain cancer. Mother with coronary artery disease, stroke, and atrial fibrillation. Social History: No tobacco, no alcohol. Lives at home. Review of Systems: The patient has right lower quadrant pain, but no melena, hematochezia, hematemesis, coffee-ground em esis, hematuria, dysuria, polydipsia, chest pain, shortness of breath, seizures, syncope, lower extre mity edema, muscle aches, joint aches, backaches. No depression or anxiety noted. Physical Examination: VITAL SIGNS: Patient is 5 feet 7, 122 pounds. BMI is 19.2 kg/sq m with temperature 97.9 degrees Fah renheit, pulse 84, respirations 18, blood pressure 98/55, O2 saturation 97%. HEENT: Normocephalic, atraumatic. Anicteric. Pupils equal, round, and reactive to light. Extraocu lar movements intact. Oropharynx is clear. Neck: Supple. No masses. Respirations: Clear to auscultation bilaterally. Cardiac: Regular rate and rhythm. No gallops or rubs. Abdomen: Positive bowel sounds, soft, nondistended. Some mild right lower quadrant tenderness. No peritoneal sign. No rebound. Extremities: No clubbing, cyanosis, or edema. 2+ pulses. Neuro: Oriented X3. Grossly nonfocal. 5/5 motor strength. Sensation intact to light touch. Laboratory Data: The patient has a white count of 14.6 down from 15.9 yesterday, hemoglobin 10.8, he matocrit 33.3, MCV of 94, platelet count 250, polys 84%, lymphocytes 7%, monocytes 8%, eosinophils 1% . PT of 28.4, INR of 2.45. The patient has sodium 140, potassium 3.8, chloride 109, bicarb 22, BUN of 10, creatinine of 0.6, glucose 71, and lactic acid of 1.4 down to 0.9, calcium 8.9, magnesium 2.0, ferritin of 165.8, total bilirubin 0.8, direct bilirubin 0.3, AST of 13, ALT of 10, alkaline phospha tase 32. B-type natriuretic peptide 176, total protein 6.1, albumin 2.7. Imaging: CT of abdomen and pelvis yesterday revealed probable appendicitis. Marked thickening of th e wall of the distal sigmoid colon, could be secondary to diverticulitis, secondary inflation from matthews spected appendicitis or mass. There is a small amount of ascites in the presacral area. Chest x-ray on yesterday revealed no acute abnormalities. Impression: Appendicitis versus diverticulitis. CT reveals appendicitis with secondary sigmoid colo gema inflammation. The patient also reports possible appendicitis noted recently at another outside h ospital as per patient's verbal report today; however, Surgery thinks there may be diverticulitis wit h secondary appendiceal inflammation that is mild noted on the CT scan somewhat controversial at this time. We will see what repeat CT scan shows that Surgery has ordered. History of atrial fibrillati on, hyperlipidemia, hypertension, hypothyroidism. Recommendation: 1.Evaluations as per surgery. 2.Agree with repeat CT abdomen and pelvis which Surgery has ordered. 3.Continue IV fluids, IV antibiotics. 4.Monitor labs and exam. The patient's white count is already coming down on therapy. We will need to monitor patient closely. 5.Diet as per Surgery, since might be appendicitis in this case. May need to go to Surgery. ADDENDUM: Troncoso virus test was negative. Blood cultures had no growth x2. Aerobic and anaerobic a nd influenza screen A and B were negative. Strep was negative. Ova and parasite negative. 2+ yeast seen without overall was negative. Serologies on August 16 C diff antigen and toxin were noted to b e positive. The patient actually has C diff colitis with possible diverticulitis or appendicitis. S o with C diff colitis, which may be the total cause of her inflammation with secondary asymptomatic d iverticula and secondary inflammation of the appendix or artifact on scan of the appendix. BRANDON/KATELYN Voice ID: [id number] Report ID: [id number]
== END 2019-08-20 15:28 | disposition home or self-care (01) | DRG 372 ==
LOC: ER 16:07 → ERHOLD 19:45 → 4TH 23:32 → 2ND 08-17 01:34
PROVIDERS: ADMIT Hospitalist; ATTEND Family Medicine
PROC: 8E0ZXY6 Isolation (ICD-10-PCS; principal; 2019-08-16)
PROC: 02HV33Z Insertion of Infusion Device into Superior Vena Cava, Percutaneous Approach (ICD-10-PCS; 2019-08-18)
DX: A04.72 Enterocolitis due to Clostridium difficile, not specified as recurrent (principal); K57.32 Diverticulitis of large intestine without perforation or abscess without bleeding; E78.2 Mixed hyperlipidemia; I48.0 Paroxysmal atrial fibrillation; E87.6 Hypokalemia; I10 Essential (primary) hypertension; E03.9 Hypothyroidism, unspecified; R50.9 Fever, unspecified; Z60.2 Problems related to living alone; Z20.828 Contact with and (suspected) exposure to other viral communicable diseases; Z95.0 Presence of cardiac pacemaker; Z90.49 Acquired absence of other specified parts of digestive tract; Z88.8 Allergy status to other drugs, medicaments and biological substances; Z79.01 Long term (current) use of anticoagulants; Z79.890 Hormone replacement therapy; Z79.899 Other long term (current) drug therapy; Z96.651 Presence of right artificial knee joint
CPT/HCPCS: 36415; 36569; 71045; 74177; 80048; 80053; 80076; 82728; 83605; 83735; 83880; 85025; 85610; 86850; 86900; 86901; 87040; 87045; 87046; 87070; 87081; 87177; 87209; 87324; 87449; 87804; 96361; 96374; 97116; 97161; 97530; 99285; J2543; J7030; Q9967; U0002

== ENCOUNTER 2019-08-26 08:38 | Day surgery (SDC) | payer OTHER, MEDICARE ==
[2019-08-26] MEDS ORDERED: Ringers Lactate 1,000 ML IV ONE (08:57)
[2019-08-26] MEDS ORDERED: propofoL 200 MG/20 ML VIAL IV ONE (09:32)
[2019-08-26] MEDS ORDERED: LIDOCAINE 1% MPF 5 ML VIAL ONE (09:32)
--- NOTE | 2019-08-26 10:00 | ENDO RPT ---
[address], [address] EGD PROCEDURE REPORT EXAM DATE: 08/26/2019 PATIENT NAME: Keysha Mejia MR#: [id number] BIRTHDATE: 1935 ATTENDING: Negro Springer Dr STATUS: outpatient [employer] SUPERVISOR: Kyara Lew CST and Ruthy Angel RN INDICATIONS: The patient is a 84 yr old Female here for an EGD due to G.I. bleeding and abdominal pain PROCEDURE PERFORMED: EGD, diagnostic MEDICATIONS: Per Anesthesia. TOPICAL ANESTHETIC: none CONSENT: The patient understands the risks and benefits of the procedure and understands that these risks include, but are not limited to: sedation, allergic reaction, infection, perforation and/or bleeding. Alternative means of evaluation and treatment include, among others: physical exam, x-rays, and/or surgical intervention. The patient elects to proceed with this endoscopic procedure. DESCRIPTION OF PROCEDURE: During intra-op preparation period all mechanical medical equipment was checked for proper function. Hand hygiene and appropriate measures for infection prevention was taken. Procedure, possible complications, and alternatives including but not limited to the possibility of bleeding, perforation, tear, infection, sepsis, need for surgery, need for blood transfusion, and anesthesia related complications were explained to the patient. After the risks, benefits and alternatives of the procedure were thoroughly explained, Informed consent was verified, confirmed and timeout was successfully executed by the treatment team. The patient was placed in the left lateral position. The patient was anesthetized with topical anesthesia. Through the anesthetized oropharyngeal area, the scope was passed without any difficulty. The [id number] ([id number]) endoscope was introduced through the mouth and advanced to the second portion of the duodenum. Retroflexed views revealed no abnormalities. The gastroscope was then slowly withdrawn and removed. Moderate amount of retained solid = liquid food was present in the body of the stomach - some suctioned out until clogging of endoscope by solid food. ADVERSE EVENTS: There were no complications. IMPRESSIONS: Moderate amount of retained solid = liquid food was present in the body of the stomach - some suctioned out until clogging of endoscope by solid food RECOMMENDATIONS: gastric emptying study REPEAT EXAM: Negro Springer Dr eSigned: Negro Springer Dr 08/26/2019 9:59 AM cc: CPT CODES: ICD9 CODES: PATIENT NAME: Keysha Mejia MR#: [id number]
--- NOTE | 2019-08-26 10:20 | ENDO RPT ---
[address], [address] COLONOSCOPY PROCEDURE REPORT EXAM DATE: 08/26/2019 PATIENT NAME: Keysha Mejia MR #: [id number] BIRTHDATE: 1935 ATTENDING: Negro Springer Dr STATUS: outpatient IMMIGRATION JUDGE: Kyara Lew CST and Ruthy Angel RN INDICATIONS: The patient is a 84 yr old Female here for a colonoscopy due to hematochezia and abdominal pain PROCEDURE PERFORMED: Colonoscopy MEDICATIONS: Per Anesthesia. ESTIMATED BLOOD LOSS: None CONSENT: The patient understands the risks and benefits of the procedure and understands that these risks include, but are not limited to: sedation, allergic reaction, infection, perforation and/or bleeding. Alternative means of evaluation and treatment include, among others: physical exam, x-rays, and/or surgical intervention. The patient elects to proceed with this endoscopic procedure. DESCRIPTION OF PROCEDURE: During intra-op preparation period all mechanical medical equipment was checked for proper function. Hand hygiene and appropriate measures for infection prevention was taken. Procedure, possible complications, alternatives including, but not limited to possibility of bleeding, perforation, tear, infection, sepsis, need for surgery, need for blood transfusion, were explained to the patient. After the risks, benefits and alternatives of the procedure were thoroughly explained, Informed consent was verified, confirmed and timeout was successfully executed by the treatment team. The patient was placed in the left lateral position. A digital rectal exam was performed and revealed no abnormalities of the rectum. After appropriate level of anesthesia, the scope was passed. The [id number] ([id number]) and [id number] ([id number]) endoscope was introduced through the anus and advanced to the sigmoid colon. The quality of the prep was fair. The instrument was then slowly withdrawn as the colon was fully examined. Scope withdrawal time was 4 minutes. COLON FINDINGS: There was mild diverticulosis noted in the sigmoid colon with associated angulation, tortuosity, colonic narrowing, luminal narrowing, colonic spasm, petechiae and inflammatory changes - unable to intubate past solid/liquid retained food noted on EGD earlier today -> high aspiration risk, so procedure terminated) . Small internal hemorrhoids were found. Retroflexed views revealed small hemorrhoids. The scope was then completely withdrawn from the patient and the procedure terminated. ADVERSE EVENTS: There were no complications. IMPRESSIONS: 1. Mild diverticulosis in the sigmoid colon with area of moderate inflammation / erythema / edema - unable to intubate past with fixed retained food noted on EGD earlier today -> high aspiration risk, so procedure terminated) 2. Small internal hemorrhoids RECOMMENDATIONS: 1. antibiotic therapy 2. surgery RECALL: Return in 4-6 week(s) for Colonoscopy. Negro Springer Dr eSigned: Negro Springer Dr 08/26/2019 10:19 AM cc: CPT CODES: ICD9 CODES: PATIENT NAME: Keysha Mejia MR#: [id number]
[2019-08-26] MEDS ORDERED: CEFAZOLIN/SWI 2gm 2 GM/20 ML SYR ONE (10:25)
[2019-08-26 10:26] VITALS: O2SAT 100
--- OUTSIDE RECORDS SUMMARY | 2019-08-26 10:32 | XMS REPORT | Clinical Summary ---
:1935 Author Organization [facility] Address [address] [place] [address] Care Team Providers Name Role Phone Pcp Primary Care Provider Unavailable Allergies Active Allergy Reactions Severity Noted Date Comments Black [place] Hives 07/17/2019 Egg Yolk 07/17/2019 Only runny [...] 2 (two) 20 tablet times daily . acetaminophen Take 2 tablets 30 tablet 0 [...] Encounters Date Type Specialty Care Team Description 08/16/2019 Lab Requisition Lab 07/21/2019 Surgery Agus Ramesh EPS & ABLATION OF MD Hema SVT W/ KETAN 07/21/2019 Hospital Encounter Agus Ramesh MD 07/21/2019 Orders Only Cardiology Agus Ramesh MD 07/17/2019 Office Visit Cardiology Agus Ramesh Pre-op exam (Pr owen Garrido MD Dx) Codey Norman RN 07/17/2019 Travel 07/17/2019 Orders Only General Internal Medicine after 08/25/2018 Family History Medical History Relation Name Comments [...] Ended) 2019 11/19/2013 Implants Implanted Type Area Azure Developer Device Shelf Model / Identifier Expiration Serial / Date Lot Lead Pacemkr Capsur Novus [id number] - [id number] Pacemaker Le ad N/A: [employer]:CARD 04/30/2019 [id number] / Implanted: Qty: 1 on 07/19/2017 by Agus Ramesh MD Heart RHY:DISEASE MGT [id number] / Lead Pacemkr Capsur Novus [id number] - [id number] Pacemaker Le ad N/A: [employer]:CARD 02/09/2019 [id number] / Implanted: Qty: 1 on 07/19/2017 by Agus Ramesh MD Heart RHY:DISEASE MGT [id number] / [place] Xt Dr Stephania Valenzuela Pacemakers N/A: [employer]TR[employer]IC 11/26 [id number] / Implanted: Qty: 1 on 07/19/2017 by Agus Ramesh MD He art [id number] / Procedures Procedure Name Priority Date/Time Associated Diagnosis Comme nts SARS-COV2/RT-PCR Routine 08/16/2019 4:27 PM Resu lts for this ([facility]) CDT procedure are in the results section. CARDIAC CATH REPORT 07/22/2019 10:40 AM - SCAN CDT EPS & ABLATION OF 07/21/2019 7:35 AM Atrial flutter, SVT W/ KETAN CDT unspecified type (HCC) Case [...] i n the results section . SARS-COV2/RT-PCR ([facility] & Routine 07/17/2019 12:43 PM Pre-op ex [...] 390 ms QTC Calculation(Bazett) 427 ms P [place] 61 degrees R [place] 41 degrees T [place] 79 degrees Normal sinus rhythm Incomplete right bundle bran ch block Borderline ECG When compared with ECG of 15:01, Nonspecific T wave abnormali ty no longer evident in Inferior leads QT has shortened after 08/25/2018 Results SARS-CoV2/RT-PCR ([facility]) (08/16/2019 4:27 PM CDT)Only the most recent of2 resultswithin the time period is included. SARS-COV2/RT-PCR Not Detected Not Detected, Negative [facility] [place] [place] SARS-COV-2 PERFORMING LAB [facility] Specimen Other Narrative Performed At Negative results do not preclude SARS-CoV-2 [facility] infection and should not be used as the sole basis for patient management decisions. Negative results must be combined with clinical observations, patient history, and epidemiological information. A false negative result may occur if a specimen is improperly collected, transported or handled. The limit of detection for this assay is 250 copies/mL. This SARS CoV-2 test is a rapid, real-time RT-PCR test intended for the qualitative detection of nucleic acid from SARS-CoV-2 in a nasopharyngeal swab specimen collected from individuals suspected of COVID-19 by their healthcare provider. This test has not been Food and Drug Administration (FDA) cleared or approved and has been authorized by FDA under an Emergency Use Authorization (EUA). This EUA will be effective until the declaration that circumstances exist justifying the authorization of the emergency use of in vitro diagnostic tests for detection and/or diagnosis of COVID-19 is terminated under Section 564(b)(2) of the Act or the EUA is revoked under Section 564(g) of the Act. Fact Sheet for Healthcare Providers: https://www.Good Deal/Documents/Xpert%20Xpre ss%20SARS%20CoV-2/Fact%20Sheets/302-8032%20SAR S-COV-2%20HEALTHCARE%20PROVIDERS%20FACT%20SHEE T.pdf Fact Sheet for Healthcare Patients: https://www.Good Deal/Documents/Xpert%20Xpre ss%20SARS%20CoV-2/Fact%20Sheets/3023801%20SAR S-COV-2%20PATIENT%20FACT%20SHEET.pdf Performing Laboratory: [facility] [address] [place] [address] Performing Organization Address City/State/Zipcode Phone Number [facility] [address] [place] [address] CENTER CARDIAC CATH REPORT - SCAN (07/22/2019 10:40 AM CDT) Narrative Performed At This result has an attachment that is no t available. TRANSFUSION SERVICE REPORT - SCAN (07/18/2019 5:53 PM CDT) Narrative Performed At This result has an attachment that is no t available. Type and screen, automated ([facility] Blood Bank) (07/17/2019 1:06 PM CDT) ABO/RH AUTOMATED (BEAKER) A POSITIVE [facility] Ab Scrn NEGATIVE [facility] Specimen Blood Performing Organization Address City/[facility]/Zipcode Phone Number [facility] [address] [place] [address] CBC with platelet count + automated diff (07/17/2019 1:06 PM CDT) WBC 7.9 3.5 - 10.5 K/L [facility] RBC 4.34 3.93 - 5.22 M/L [facility] Hemoglobin 13.0 11.2 - 15.7 GM/DL [facility] Hematocrit 40.8 34.1 - 44.9 % [facility] MCV 94.0 79.4 - 94.8 fL [facility] MCH 30.0 25.6 - 32.2 pg [facility] MCHC 31.9 (L) 32.2 - 35.5 GM/DL [facility] RDW 15.1 (H) 11.7 - 14.4 % [facility] Platelets 202 150 - 450 K/CU MM [facility] MPV 9.6 9.4 - 12.3 fL [facility] nRBC 0 0 - 0 /100 WBC [facility] % Neutros 69 % [facility] % Lymphs 22 % [facility] % Monos 6 % [facility] % Eos 2 % [facility] % Baso 1 % [facility] # Neutros 5.45 1.56 - 6.13 K/L [facility] # Lymphs 1.74 1.18 - 3.74 K/L [facility] # Monos 0.45 (H) 0.24 - 0.36 K/L [facility] # Eos 0.17 0.04 - 0.36 K/L [facility] # Baso 0.04 0.01 - 0.08 K/L [facility] Immature Granulocytes-Relative 0 0 - 1 % C HI [facility] Specimen Blood Performing Organization Address City/[facility] Phone Number [address] [address] CENTER Prothrombin time/INR (07/17/2019 1:06 PM CDT) Protime 18.0 (H) 11.9 - 14.2 seconds [facility] INR 1.5 <=5.9 [facility] Specimen Blood Narrative Performed At Effective 07/23/2018: PT Reference Range [facility] Change New: 11.9-14.2Previous: 11.7-14.7 RECOMMENDED COUMADIN/WARFARIN INR THERAPY RANGES STANDARD DOSE: 2.0-3.0Includes: PROPHYLAXIS for venous thrombosis, systemic embolization; TREATMENT for venous thrombosis and/or pulmonary embolus. HIGH RISK: Target INR is 2.5-3.5 for patients wiht mechanical heart valves. Performing Organization Address City/[facility] Hospitalcode Phone Number [address] [address] [place] Basic Metabolic Panel (07/17/2019 1:06 PM CDT) Sodium 140 136 - 145 meq/L [facility] Potassium 4.4 3.5 - 5.1 meq/L [facility] Chloride 107 98 - 107 meq/L [facility] CO2 28 22 - 29 meq/L [facility] BUN 17 7 - 21 mg/dL [facility] Creatinine 0.91 0.57 - 1.25 mg/dL [facility] Glucose 81 70 - 105 mg/dL [facility] Calcium 10.1 8.4 - 10.2 mg/dL [facility] EGFR 59Comment: ESTIMATED GFR IS mL/min/1.73 sq m [facility] NOT ACCURATE CREATININE [facility] CLEARANCE IN PREDICTING GLOMERULAR FILTRATION RATE. ESTIMATED GFR IS NOT APPLICABLE FOR DIALYSIS PATIENTS. Specimen Blood Narrative Performed At Life Advisor ID - VAN Weber [facility] Performing Organization Address City/State/Zipcode Phone Number [facility] [address] [place], [place] [phone] [place] ECG 12 lead (07/17/2019 12:25 PM CDT) Specimen Narrative Performed At Ventricular Rate 72 BPM GE MUSE Atrial Rate 72 BPM P-R Interval 156 ms QRS Duration 96 ms Q-T Interval 390 ms QTC Calculation(Bazett) 427 ms P [place] 61 degrees R [place] 41 degrees T [place] 79 degrees Normal sinus rhythm Incomplete right bundle branch block Confirmed by MD VIRY, KENIA Major ([id number]) on 0 3:01:57 PM Procedure Note Interface, External Ris In - 07/21/2019 3:02 PM CDT Ventricular Rate 72 BPM Atrial Rate 72 BPM P-R Interval 156 ms QRS Duration 96 ms Q-T Interval 390 ms QTC Calculation(Bazett) 427 ms P [place] 61 degrees R [place] 41 degrees T [place] 79 degrees Normal sinus rhythm Incomplete right bundle branch block Confirmed by MD VIRY, KENIA Major ([id number]) on 07/21/2019 3:01:57 PM Performing Organization Address City/State/Zipcode Phone Number GE MUSE after 08/25/2018 Insurance Payer Benefit Plan / Group Subscriber ID Type Phone A ddress MEDICARE MEDICARE A B xxxxxxxxxxx Medicare MCR AARP/UNITED xxxxxxxxxxx [employer] SUPPLEMENT/[facility] CDC REVIEW CDC REVIEW xxxxxxxx [address] [place] [place] [address] Advance Directives For more information, please contact:[place] [id number] [place], [place] [phone] Code Status Date Activated Date Inactivated Comments [...]
[2019-08-26 10:34] VITALS: BP 108/56; TEMP 97.2
--- OUTSIDE RECORDS SUMMARY | 2019-08-26 10:40 | XMS REPORT | Continuity of Care Document ---
:[address] [facility] t Address [address] [place] [address] Care Team Providers Name Role Phone Pcp Primary Care Physician Unavailable Hema Ramesh MD Attending Clinician Emerson GREEN, S Attending Clinician Unavailable HEMA RAMESH Attending Clinician Unavailable REJI VELASCO Attending Clinician Unavailable MARCIANO SRIVASTAVA [...] - [facility] MCR xxxxxxxxxxx [facility]INDIVIDUALAARP/UNITSerenity [facility]xxx[facility] REVIEWCDC REVIEWxxxxxxxxPO [place] [address] [facility] Problems Condition Condition Condition Status Onset Resolution Last Treating Co mments Source Name Details Category Date Date Treatment Clinician Date Atrial Atrial Disease Active [facility] flutter 07-20 [facility]: Medical 00 [place] Hemorrhagi Hemorrhagi Disease Active [facility] shock c shock 10-17 [facility]: Medical 00 [place] Acute Acute Disease Active [facility] blood loss blood loss 10-17 Xuan kes - anemia anemia 00:00: Medical [place] Hypothyroi Hypothyroi Disease Active [facility] d d 10-17 [facility] Medical [place] S/P S/P Disease Active [facility] cholecyste cholecyste 10-17 Xuan kes - ctomy ctomy 00:00: Medical [place] A-fib A-fib Disease Active [facility] 08[facility]18 [facility] Medical 00 [place] Diverticul Diverticul Disease Active [facility] itis itis 08-15 [facility] 00:[facility]: Medical [place] Cholelithi Cholelithi Disease Active [facility] asis asis 08-13 [facility] - 00:[facility]: Medical 00 [place] Syncope, Syncope, Disease Active [facility] cardiogeni cardiogeni 07-18 [facility] k[facility] - c c 00:00: Medical [place] Atrial Atrial Disease Active [facility] fibrillati fibrillati 6 [facility] kes - on on 00:00: Medical 00 Center Allergies, Adverse Reactions, Alerts Allergy Allergy Status Severity Reaction(s) Onset Inactive Treating Comm ents Source Name Type Date Date Clinician Black Propensi Active Hives [facility] [place] ty to 5-22 [facility] - adverse 00:00: Medical reaction 00 Center s Egg Yolk Propensi Active Only [facility] ty to 5-22 runny [facility] - adverse 00:00: nose Medical reaction 00 Center s Tree Nut Propensi Active Hives [facility] ty to 5-22 [facility] - adverse 00:00: Medical reaction 00 [place] s scopolam DA Active [place] 2018-02 [facility] ine 1-25 Clear 00:00: Cm 00 [facility] egg yolk FA Active [place] 2018-02 [facility] 1-25 Clear 00:00: Cm [facility] raloxife DA Active [place] 2018-02 [facility] ne 1-25 Clear 00:00: Cm 00 [facility] Oxybutyn Propensi Active 2018-[address] [...] s scopolam DA Active SV [facility] in[facility] 4-17 [place] 00:00: d 00 [facility] egg yolk FA Active [place] [facility] 4-17 [place] 00:00: d 00 [facility] raloxife DA Active [place] [facility] ne 4-17 [place] 00:00: d 00 [facility] NUTS DA Active [place] [facility] -ALL 4-16 Clear EXCEPT 00:00: Cm PEANUTS 00 [facility] Family History Family Member Diagnosis Comments Start Date Stop Date Source Natural father Cancer [facility] Natural mother Heart disease [facility] Natural mother Stroke [facility] Natural sister Stroke [facility] Social History Social Habit Start Date Stop Date Quantity Comments Source Sex Assigned At [facility] Smoking Status Start Date Stop Date Source Never smoker [facility] Medications Ordered Filled Start Stop Current Ordering Indication Dosage Frequency Signature Comments Components Source Medication Medication Date Date Medication? Clinician (SIG) Name Name chlorhexidi 2020- No [facility] - (HIBICLENS) 13:00: 13:30 Medic al external 00 :00 [place] liquid 4% fenofibrate 2020- No 160mg QD Take [address] (TRICOR) - 05-22 mg by [facility] - 145 MG 12:35: 00:00 mouth Medical tablet 53 :00 daily . [place] rivaroxaban 2020- No 20mg Take [address] (XARELTO) 07-16 05-22 by mouth [facility] - 20 mg Tab 12:35: 00:00 daily with M edical tablet 37 :00 dinner. [place] levETIRAcet 2020- No 500mg Q.5D Take [address] [facility] (KEPPRA) 5-22 05-22 mg by [facility] - 500 MG 12:35: 00:00 mouth 2 Medical tablet 37 :00 (two) Center times daily . amiodarone 0 Yes 100mg QD Take [address] (PACERONE) 5-22 mg by [facility] - 100 MG 12:33: mouth Medical tablet 43 daily. [place] levETIRAcet 0 Yes 250mg Q.5D Take [address] am (KEPPRA) 5-06 mg by [facility] - 250 MG 00:00: mouth 2 Medical tablet 00 (two) Center times daily. MYRBETRIQ 0 Yes 50mg QD [address] [facility] 50 mg Tb24 -29 O2 [facility] - ER tablet 00:00: Aerosoliza [...] mouth Medic al MG tablet 00 daily. [place] rivaroxaban 2018-02 Yes 15mg QD Take [address] (XARELTO) 1-18 by mouth [facility] - 15 mg Tab 00:00: daily. Medica l tablet 00 [place] metoprolol 2019- No 25mg Q.5D Take [address] (TOPROL-XL) 10-23 tablet (25 L ukes - 25 MG 24 hr 00:00: 23:59 mg total) Medical tablet 00 :00 by mouth 2 Center (two) times daily. acetaminoph 2019- No 650mg Take [address] en 10-23 tablets [facility] - (TYLENOL) 00:00: 23:59 (650 mg Medi kip 325 MG 00 :00 total) by Center tablet mouth every 4 (four) hours as needed for Fever (greater than 100.4F) for up to 360 days. Lactobacill Yes 1{tbl} Q.5D Take [address] us 6-22 tablet by [facility] - acidoph-L.b 00:00: mouth 2 Med ical ulgar 00 (two) Center (FLORANEX) times 1 million daily. cell Tab per tablet levothyroxi Yes 25ug Take [address] ne 5-24 mcg by [facility] - (SYNTHROID, 12:07: mouth Medic al LEVOTHROID) 23 Every Center 25 MCG morning on tablet an empty stomach. atorvastati Yes 40mg QD Take [address] n (LIPITOR) 6-02 by mouth Luke s - 40 MG 11:34: daily. Medical tablet 04 Center Vital Signs Vital Name Observation Time Observation Value Comments Source Systolic blood 2019-07-21 14:00:00 99 mm[Hg] [facility] Diastolic blood 2019-07-21 14:00:00 56 mm[Hg] [facility] Heart rate 2019-07-21 14:00:00 76 /min [facility] Respiratory rate 2019-07-21 14:00:00 16 /min [facility] Oxygen saturation in 2019-07-21 14:00:00 98 /min [facility] - Arterial blood by Medical Ce nter Pulse oximetry Body temperature 2019-07-21 07:38:00 36.72 Jessa [facility] Body height 2019-07-21 07:38:00 170.2 cm [facility] Body weight Measured 2019-07-21 07:38:00 58.196 kg [facility] BMI 2019-07-21 07:38:00 20.09 kg/m2 [facility] Procedures Procedure Date / Time Performed Performing Clinician Sour e SARS-COV2/RT-PCR ([facility] & 2019-08-16 16:27:00 [facility] - REF LABS) [facility] CARDIAC CATH REPORT - 2019-07-22 10:40:41 Provider, Default [facility] EPS & ABLATION OF SVT W/ 2019-07-21 07:35:00 Agus Ramesh [facility] TRANSFUSION SERVICE 2019-07-18 17:53:51 Provider, Default [facility] - REPORT - [facility] BASIC METABOLIC PANEL 2019-07-17 13:06:00 Domitila Agus Garrido [facility] - (7) [facility] PROTHROMBIN TIME/INR 2019-07-17 13:06:00 Domitila Agus Garrido [facility] TYPE AND SCREEN, 2019-07-17 13:06:00 Domitila Agus Garrido [facility] - AUTOMATED [facility] CBC W/PLT COUNT & AUTO 2019-07-17 13:06:[address] [facility] DIFFERENTIAL [facility] SARS-COV2/RT-PCR ([facility] & 2019-07-17 12:43:00 Domitila Agus Garrido [facility] - REF LABS) [facility] ECG 12-LEAD 2019-07-17 12:25:35 Domitila Agus Garrido [facility] Plan of Care Planned Activity Planned Date Details Comments Source Future Scheduled 2019-10-[address] [facility] - Test 00:00:00 (Season Ended) [code = [facility] INFLUENZA VACCINE (Season Ended)] Future Scheduled 2018-11-28 PNEUMOCOCCAL [address] - Test 00:00:00 LOW/MEDIUM RISK (2 of Medica l Center 2 - PCV13) [code = PNEUMOCOCCAL 65+ LOW/MEDIUM RISK (2 of 2 - PCV13)] Future Scheduled 2003-04-[address] [facility] - Test 00:00:00 WELLNESS (YEAR 2 or Medical Center FIRST YEAR if no IPPE) [code = MEDICARE ANNUAL WELLNESS (YEAR 2 or FIRST YEAR if no IPPE)] Results Test Description Test Time Test Comments Results Result Comments Source SARS-CoV2/RT-PCR ([facility] & Ref Labs) 2019-08-17 01:31:00 Test Item Value Reference Range Interpretation Comme nts SARS-COV2/RT-PCR (test code = Not Detected Not Detected, Negative 05464-9) SARS-COV-2 PERFORMING LAB [facility] (test code = 21067-3) ARUNA (test code = ARUNA) Negative results do not preclude SARS-CoV-2 infection and should not be used as [...] of the Act. Fact Sheet for Healthcare Providers:https://www.ONtheAIR/Documents/Xpert%20Xpress %20SARS%20CoV-2/Fact%20Sheets /302-3802%86AVDQ-QHE-3%20HEAL THCARE%20PROVIDERS%20FACT%20S HEET.pdf Fact Sheet for Healthcare Patients:https://www.ScrollMotion/Documents/Xpert%20Xpress% 20SARS%20CoV-2/Fact%20Sheets/ 302-3801%77VAXK-PCB-7%20PATIE NT%20FACT%20SHEET.pdf Performing Laboratory:[facility] [place] [address].[place], [place] [address] [place], [place] [address]ARS-COV2/RT-PCR ([facility] & REF LABS)2019-08-17 01:31:00 Test Item Value Reference Range Interpretation Comments SARS-COV2/RT-PCR (test Not Detected Not Detected, Negative code = 6343756) SARS-COV-2 PERFORMING LAB [facility] (test code = 4681678) Negative results do not preclude SARS-CoV-2 infection and should not be used as the sole basis for patient management decisions. Negative results must be combined with clinical observations, patient history, and epidemiological information. A false negative result may occur if a specimen is improperly collected, transported or handled.The limit of detection for this assay is 250 copies/mL.This SARS CoV-2 test is a rapid, real-time RT-PCR test intended for the qualitative detection of nucleic acid from SARS-CoV-2 in a nasopharyngeal swab specimen collected from individuals suspected of COVID-19 by their healthcare provider.This test has not been Food and Drug [...] is revoked under Section 564(g) of the Act.Fact Sheet for Healthcare Pro viders:https://www.SeoPult/Documents/Xpert%20Xpress%20SARS%20CoV-2/Fact%20Sh eets/302-3802%32DHFO-QNE-0%20HEALTHCARE%20PROVIDERS%20FACT%20SHEET.pdfFact Sheet for Healthcare Patients:https://www.[employer]/Documents/Xpert%20Xpress%20SARS%20CoV-2/Fact%20Sheets/302-3801%20SARS-COV -2%20PATIENT%20FACT%20SHEET.pdfPerforming Laboratory:[facility] [place], [place] [address]L[facility] 12 [id number] 15:02:02Interface, External Ris In - 07/21/2019 3:02 PM CDTVentricular Rate 72 BPMAtrial Rate 72 BPMP-R Interval 156 msQRS Duration 96 msQ-T Interval 390 msQTC Calculation(Bazett) 427 msP Hilliard 61 degreesR Hilliard 41 degreesT Hilliard 79 degreesNormal sinus rhythmIncomplete right bundle branch blockConfirmed by SAM REDMOND MD, KENIA Major ([id number]) on 07/21/2019 3:01:57 [facility] SARS-COV2/RT-PCR ([facility] & REF LABS)2019-07-19 07:35:00 Test Item Value Reference Range Interpretation Comments SARS-COV2/RT-PCR (test code = Negative Not Detected, Negative 4587406) SARS-COV-2 PERFORMING LAB [facility] (test code = 1563306) Type and screen, automated ([facility])2019-07-17 13:45:00 Test Item Value Reference Range Interpretation Comments ABO/RH AUTOMATED (BEAKER) (test A POSITIVE code = 2260) Ab Scrn (test code = 890-4) NEGATIVE [facility] Metabolic [id number] 13:43:00 Test Item Value Reference Range Interpretation Comments Sodium (test code = 140 meq/L 932-416 7138-2) Potassium (test 4.4 meq/L 3.5-5.1 code = 2823-3) Chloride (test code 107 meq/L 98-107 = 2075-0) CO2 (test code = 28 meq/L 22-29 8-9) BUN (test code = 17 mg/dL 7-21 3094-0) Creatinine (test 0.91 mg/dL 0.57-1.25 code = 2160-0) Glucose (test code 81 mg/dL 70-105 = 2345-7) Calcium (test code 10.1 mg/dL 8.4-10.2 = 61544-9) EGFR (test code = 59 mL/min/1.73 [place] [address]-6) NOT ACCURATE CREATININE CLEARANCE IN PREDICTING GLOMERULAR FILTRATION RATE . ESTIMATED GFR I S NOT APPLICABLE FOR DIALYSIS PATIEN TS. VALDOVINOS (test code = Sane Rn ID - ARUNA) [facility] METABOLIC [id number] 13:43:00 Test Item Value Reference Range Interpretation [...] S NOT APPLICABLE FOR DIALYSIS PATIEN TS. Sane Rn ID - VAN MProthrombin time/[id number] 13:34:00 Test Item Value Reference Range Interpretation [...] valves. Lab Interpretation Abnormal (test code = 97673-0) [facility]/[id number] 13:34:00 Test Item Value Reference Range Interpretation [...] heart valves.CBC with platelet count + automated [id number] 13:16:00 Test Item Value Reference Range Interpretation [...] 450 K/CU MM MPV (test code = 30548-2) 9.6 fL 9.4-12.3 nRBC (test code = [...] 2801) Lab Interpretation (test code = Abnormal 70570-7) [facility] W/PLT COUNT & AUTO [id number] 13:16:00 Test Item Value Reference Range Interpretation [...] (BEAKER) (test code = 2801) BASIC METABOLIC [id number] 06:49:00 Test Item Value Reference Range Interpretation [...] CA) 8.1 MG/DL 8.5-10.1 L CBC W/AUTO [id number] 06:38:00 Test Item Value Reference Range Interpretation [...] = NO DIFF/SCN CRITERIA MDIFF) GLUCOSE BEDSIDE [id number] 21:04:00 Test Item Value Reference Range Interpretation Comments GLUCOSE BEDSIDE TESTING (test code 121 mg/dL 70-110 H = GLUBED) GLUCOSE BEDSIDE [id number] 16:40:00 Test Item Value Reference Range Interpretation Comments GLUCOSE BEDSIDE TESTING (test code = 88 mg/dL 70-110 N GLUBED) GLUCOSE BEDSIDE [id number] 11:27:00 Test Item Value Reference Range Interpretation Comments GLUCOSE BEDSIDE TESTING (test code 104 mg/dL 70-110 N = GLUBED) GLUCOSE BEDSIDE [id number] 08:18:00 Test Item Value Reference Range Interpretation Comments GLUCOSE BEDSIDE TESTING (test code = 83 mg/dL 70-110 N GLUBED) GLUCOSE BEDSIDE [id number] 21:18:00 Test Item Value Reference Range Interpretation Comments GLUCOSE BEDSIDE TESTING (test code = 98 mg/dL 70-110 N GLUBED) CBC W/AUTO [id number] 11:04:00 Test Item Value Reference Range Interpretation [...] DIFF REQUIRED NO DIFF/SCN CRITERIA SLIDE R EVIEW (test code = MDIFF) CONSISTA NT WITH AUTO DIFFERENTIAL. CBC W/AUTO [id number] 06:41:00 Test Item Value Reference Range Interpretation [...] code = DIFF/SCN CRITERIA MDIFF) BASIC METABOLIC [id number] 06:10:00 Test Item Value Reference Range Interpretation [...] CA) 8.7 MG/DL 8.5-10.1 N GLUCOSE BEDSIDE [id number] 20:32:00 Test Item Value Reference Range Interpretation Comments GLUCOSE BEDSIDE TESTING (test code = 79 mg/dL 70-110 N GLUBED) GLUCOSE BEDSIDE [id number] 17:02:00 Test Item Value Reference Range Interpretation Comments GLUCOSE BEDSIDE TESTING (test code 119 mg/dL 70-110 H = GLUBED) GLUCOSE BEDSIDE [id number] 12:45:00 Test Item Value Reference Range Interpretation Comments GLUCOSE BEDSIDE TESTING (test code = 73 mg/dL 70-110 N GLUBED) - CT HEAD/BRAIN W/O [id number] 11:30:00 [facility] 1935 Age/S: 83 / F [address] Unit #: [id number] Loc: [place] [address] Phys: Reyes Pascual MD Acct: [id number] Dis Date: Status: ADM IN PHONE #: [phone] Exam Date: 01/22/2019 1101 FAX #: Reason: Confusion EXAMS: CPT: [id number] CT HEAD/BRAIN W/O CONT 53097 EXAM: - CTHEAD/BRAIN W/O CONT LOCATION: C3 [...] 1 Signed Report (CONTINUED) Name: KEYSHA MEJIA [facility] : 1935 Age/S: 83 / F [address] Unit #: [id number] Loc: [place] [address] Phys: Reyes Pascual MD Acct: [id number] Dis Date: Status: ADM IN PHONE #: [phone] Exam Date:01/22/2019 1105 FAX #: Reason: Confusion EXAMS: CPT: [id number] CT HEAD/BRAIN W/O CONT 68212 <Continued> at 1130 Reported and signed by: SAMI GUZMÁN M.D. CC: Reyes Pascual MD Technologist:Harsh [place], RT(R)(CT)(MRI) CTDI:DLP: Trnscb Date/Time: 01/22/2019 (1130) [email or web address] Orig Print D/T: S: 01/22/2019 (1140) PAGE 2 Signed ReportGLUCOSE BEDSIDE [id number] 08:18:00 Test Item Value Reference Range Interpretation Comments GLUCOSE BEDSIDE TESTING (test code = 69 mg/dL 70-110 L GLUBED) BASIC METABOLIC [id number] 07:29:00 Test Item Value Reference Range Interpretation [...] CA) 8.4 MG/DL 8.5-10.1 L CBC W/AUTO [id number] 07:04:00 Test Item Value Reference Range Interpretation [...] CRITERIA MDIFF) - XR SWLW FUNC W/C [id number] 12:20:00 Name: KEYSHA MEJIA [facility] : 1935 Age/S: 83 / F [address] Unit #: [id number] Loc: [place] [address] Phys: Reyes Pascual MD Acct: [id number] Dis Date: Status: ADM IN PHONE #: [phone] Exam Date: 01/21/2019 1155 FAX #: Reason: SPEECH EVAL EXAMS: CPT: [id number] XR SWLW FUNC W/C V 21729 Fluoro Time: 102 SEC DAP (Gy m2): [...] PAGE 1 Signed Report Name: KEYSHA MEJIA [facility] : 1935 Age/S: 83 / F [address] [address] Unit #: [id number] Loc:[place] [address] Phys: Reyes Pascual MD Acct: [id number] Dis Date: Status: ADM IN PHONE #: [phone] Exam Date: 01/21/2019 1150 FAX #: Reason: SPEECH EVAL EXAMS: CPT: [id number] XR SWLW FUNC W/C V 80752 Fluoro Time: 102 SEC DAP (Gy m2): Air Kerma (mGy): <Continued> Technologist: RT Lionel(Porfirio)(MR) Trnscb Date/Time: 01/21/2019 (1220) [id number] Orig Print D/T: S: 01/21/2019 (8963) PAGE 2 Signed ReportCB W/AUTO [id number] 06:03:00 Test Item Value Reference Range Interpretation [...] CONSISTA NT WITH AUTO DIFFERENTIAL. BASIC METABOLIC [id number] 05:47:00 Test Item Value Reference Range Interpretation [...] 8.5-10.1 L UA RFLX MICR CULT IF [id number] 20:17:00 Test Item Value Reference Range Interpretation [...] src Flank PainUA RFLX MICR CULT IF [id number] 20:04:00 Test Item Value Reference Range Interpretation [...] other src Flank Pain- XR CHEST 1 [id number] 17:24:00 Name: KEYSHA MEJIA [facility] : 1935 Age/S: 83 / F [address] [facility] Unit #: [id number] Loc: [place] [address] Phys: Reyes Pascual MD Acct: [id number] Dis Date: Status: ADM IN PHONE #: [phone] Exam Date: 01/20/2019 1705 FAX #: Reason: SOB EXAMS: CPT: [id number] XR CHEST 1 V 23051 Fluoro Time: DAP (Gy m2): Air Kerma [...] PAGE 1 Signed Report Name: KEYSHA MEJIA [facility] : 1935 Age/S: 83 / F [address] [address] Unit #: [id number] Loc: [place] [address] Phys: Reyes Pascual MD Acct: [id number] Dis Date: Status: ADM IN PHONE #: [phone] Exam Date: 01/20/2019 1705 FAX #: Reason: SOB EXAMS: CPT: [id number] XR CHEST 1 V 11093 Fluoro Time: DAP (Gy m2): Air Kerma (mGy): <Continued> Technologist: Estefanía Couch, RT(R)(CT) Trnscb Date/Time: 01/20/2019 (172) [id number] Orig Print D/T: S: 01/20/2019 (7385) PAGE 2 Signed Report- FLUORO GUID CTRL ACC [id number] 10:55:00 Name: KEYSHA MEJIA [facility] : 1935 Age/S: 83 / F [address] [address] Unit #: [id number] Loc: [place] [address] Phys: Reyes Pascual MD Acct: [id number] Dis Date: Status: ADM IN PHONE #: [phone] Exam Date: 01/19/2019 2355 FAX #: Reason: CENTRAL LINE FOR SEPTIC SHOCK EXAMS: CPT: [id number] FLUORO GUID CTRL ACC DEV 05982 Fluoro Time: DAP (Gy m2): Air Kerma (mGy): Examination: Ultrasound fluoroscopic guided right internal jugular central venous catheter placement Location code: S17 recoating machine operator: Dr. Jaimes Trust Officer: None Sedation: None Anesthesia: 1% lidocaine locally [...] skin with suture.Tegaderm was subsequently placed. Dr. Jaiems was present during this procedure for a total of 20 minutes. Fluoroscopic time 6 seconds. Impression: Chest ultrasound fluoroscopic guided right internal jugular central venous catheter place ment. PAGE 1 Signed Report (CONTINUED) Name: KEYSHA MEJIA [place] : 1935 Age/S: 83 / F [address] [address] Unit #: [id number] Loc: [place] [address] Phys: Reyes Pascual MD Acct: [id number] Dis Date: Status: ADM IN PHONE #: [phone] Exam Date: 01/19/2019 2355 FAX #: Reason: CENTRAL LINE FOR SEPTIC SHOCK EXAMS: CPT: [id number] FLUORO GUID CTRL ACC DEV 60611 Fluoro Time: DAP (Gym2): Air Kerma (mGy): <Continued> at 1055 Reported and signed by: Kenia Painting M.D. CC: Melinda Pascual MD PAGE 2 Signed Report Name: KEYSHA MEJIA [place] : 1935 Age/S:83 / F [address] [address] Unit #: [id number] Loc: [place] [address] Phys: Reyes Pascual MD Acct: [id number] Dis Date: Status: ADM IN PHONE #: [phone] Exam Date: 01/19/2019 2355 FAX #: Reason: CENTRALLINE FOR SEPTIC SHOCK EXAMS: CPT: [id number] FLUORO GUID CTRL ACC DEV 46759 Fluoro Time: DAP (Gy m2): Air Kerma (mGy): <Continued> Technologist: RT Stefania(R) Trnscb Date/Time: 01/20/2019 (1055) [email or web address] Orig Print D/T: S: 01/20/2019 (1056) PAGE 3 Signed Report- [facility] GUIDANCE [facility] [id number] 10:55:00 Name: KEYSHA MEJIA [place] : 1935 Age/S: 83 / F [address] [address] Unit #: [id number] Loc: [place] [address] Phys: Reyes Pascual MD Acct: [id number] Dis Date: Status: ADM IN PHONE #: [phone] Exam Date: 01/19/20192346 FAX #: Reason: septic shock EXAMS: CPT: [id number] US GUIDANCE VASC ACCESS 60621 Examination: Ultrasound fluoroscopic guided right internal jugular central venous catheter placement Location code: S17 recoating machine operator: Dr. Jaimes Trust Officer: None Sedation: None Anesthesia: 1% lidocaine locally [...] 1 Signed Report (CONTINUED) Name: KEYSHA MEJIA [facility] : 1935 Age/S: 83 / F [address] [facility] Unit #: [id number] Loc: [place] [address] Phys: Reyes Pascual MD Acct: [id number] Dis Date: Status: ADM IN PHONE #: [phone] Exam Date: 01/19/20192346 FAX #: Reason: septic shock EXAMS: CPT: [id number] [facility] GUIDANCE VASC ACCESS 13598 <Continued> at 1055 Reported and signed by: Kenia Painting M.D. CC: Reyes Pascual MD Technologist: Rosalind Munroe RDMS Trnscb Date/Time: 01/20/2019 (6851) [id number] PAGE 2 Signed Report Name: [facility] : 1935 Age/S:83 / F [address] [address] Unit #: [id number] Loc: [place] [address] Phys: Reyes Pascual MD Acct: [id number] Dis Date: Status: ADM IN PHONE #: [phone] Exam Date: 01/19/2019 5243 FAX #: Reason: septicshock EXAMS: CPT: [id number] [facility] GUIDANCE VASC ACCESS 09746 <Continued> Orig Print D/T: S: 01/20/2019 (7493) Probe: PAGE 3 Signed ReportGLUCOSE BEDSIDE [id number] 05:52:00 Test Item Value Reference Range Interpretation Comments GLUCOSE BEDSIDE TESTING (test code = 62 mg/dL 70-110 L GLUBED) BASIC METABOLIC [id number] 05:42:00 Test Item Value Reference Range Interpretation [...] CA) 7.6 MG/DL 8.5-10.1 L CBC W/AUTO [id number] 05:33:00 Test Item Value Reference Range Interpretation [...] code = NO DIFF/SCN CRITERIA MDIFF) PROTHROMBIN [id number] 23:25:00 Test Item Value Reference Range Interpretation Comments PT PATIENT (test code = PTP) 13.1 SECONDS 9.3-12.9 H INTERNATIONAL NORMAL RATIO 1.14 INR Unit 0.8-1.2 N (test code = INR) THROMBOPLASTIN TIME [id number] 23:25:00 Test Item Value Reference Range Interpretation Comments THROMBOPLASTIN TIME PARTIAL 25.1 SECONDS 26-35 L (test code = PTT) UA RFLX MICR CULT IF [id number] 16:01:00 Test Item Value Reference Range Interpretation [...] for culture: Dysuria/FrequencyUA RFLX MICR CULT IF [id number] 15:49:00 Test Item Value Reference Range Interpretation [...] CLEAN CATCHIndication for culture: Dysuria/Frequency COMPREHENSIVE METABOLIC [id number] 15:38:00 Test Item Value Reference Range Interpretation [...] 45-117 N code = ALKP) COMPREHENSIVE METABOLIC [id number] 15:22:00 Test Item Value Reference Range Interpretation [...] code = ALKP) - XR CHEST 1 [id number] 15:13:00 [facility]: [facility] Center : 1935 Age/S: 83 / F [address] Unit #: [id number] Loc: [place] [address] Phys: Sven Ortiz MD Acct: [id number] Dis Date: Status: PRE ER PHONE #: [phone] Exam Date: 01/19/2019 1500 FAX #: Reason: Suspected Sepsis EXAMS: CPT: [id number] XR CHEST 1 V 95770 Fluoro Time: DAP (Gy m2): Air Kerma [...] PAGE 1 Signed Report Name: KEYSHA MEJIA [facility] : 1935 Age/S: 83 / F [address] Unit #: [id number] Loc: [place] [address] Phys: Sven Ortiz MD Acct: [id number] Dis Date: Status: PRE ER PHONE #: [phone] Exam Date: 01/19/2019 1500 FAX #: Reason: Suspected Sepsis EXAMS: CPT: [id number] XR CHEST 1 V 83311 Fluoro Time: DAP (Gy m2): Air Kerma (mGy): <Continued> Technologist: RT Mark(R) Trnscb Date/Time: 01/19/2019 (6623) [email or web address] Orig Print D/T: S: 01/19/2019 (4797) PAGE 2 Signed ReportCBC W/AUTO [id number] 15:07:00 Test Item Value Reference Range Interpretation [...] = NO DIFF/SCN CRITERIA MDIFF) TROPONIN I [id number] 15:07:00 Test Item Value Reference Range Interpretation Comments TROPONIN I RAPID 0.02 ng/mL 0.00-0.08 N - The use o f serial (test code = sampling and te sting TROPIRAP) protocol is a recommended pra ctice- An elevated tro ponin level alone is often not sufficient for diagnosis of my ocardial infarction. LACTIC ACID [id number] 14:59:00 Test Item Value Reference Range Interpretation Comments LACTIC ACID POC (test code = 1.91 MMOL/L 0.90-1.70 H LACTP) RAD, CHEST, 2 [id number] 11:22:00Reason for Exam:->i48.0, i10, e78.5, i34.8, z79.899, [...] examination of the chest. Signed: Kenia Morrison Verified Date/Time: 08/18/2018 11:22:44 Reading Location: [address] Radiology Reading Room RAD, CHEST, 2 [id number] 13:44:00Reason for Exam:->e44HETAG REPORT PA and Lateral views of the chest dated 02/03/2018 COMPARISON: September 23, 2017 Clinical information: i10 Comment: Heart is in the upper limits of normal in size. 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 AICD remains in place. Pulmonary vasculature is unremarkable. Lungs are clear. No pulmonary infiltrate or pleural effusion is present. Impression: No active cardiopulmonary disease or interval change. Signed: Kenia Morrison Verified Date/Time: 02/03/2018 13:44:13 Reading Location: [address] Radiology Reading Room BASIC METABOLIC [id number] 06:05:00 Test Item Value Reference Range Interpretation [...] 0-0 (BEAKER) (test code = 413) TISSUE [id number] 10:17:00Surgical Pathology Report Case: [id number] Authorizing Provider: Nan Velasco, Collected: 10/17/2017 0837 Ordering Location: [facility] Received: 10/17/2017 0952 SERVICES Pathologist: Arianna Saldana MD Specimen: Gallbladder GALLBLADDER, CHOLECYSTECTOMY: - CHRONIC CHOLECYSTITIS WITH CHOLELITHIASIS Signing Pathologist Direct Phone Line: [phone] signed by Arianna Saldana MD on 10/21/2017 at 10:17 [id number] of gallbladder without cholecystitis without obstruction Gallbladder [...] en face; A2, gallbladder wall. CG/ewPerformed.HEPATIC FUNCTION [id number] 07:12:00 Test Item Value Reference Range Interpretation [...] = 31 U/L 6-55 347) BASIC METABOLIC [id number] 07:12:00 Test Item Value Reference Range Interpretation [...] (BEAKER) (test code = 413) HEPATIC FUNCTION [id number] 07:05:00 Test Item Value Reference Range Interpretation [...] = 34 U/L 6-55 347) BASIC METABOLIC [id number] 07:05:00 Test Item Value Reference Range Interpretation [...] (BEAKER) (test code = 413) HEPATIC FUNCTION [id number] 06:40:00 Test Item Value Reference Range Interpretation [...] = 40 U/L 6-55 347) BASIC METABOLIC [id number] 06:40:00 Test Item Value Reference Range Interpretation [...] 0-0 (test code = 413) HEMOGLOBIN AND [id number] 09:12:00 Test Item Value Reference Range Interpretation Comments HEMOGLOBIN (BEAKER) (test code = 9.6 GM/DL 11.2-15.7 L 410) HEMATOCRIT (BEAKER) (test code = 28.4 % 34.1-44.9 L 411) HEPATIC FUNCTION [id number] 05:05:00 Test Item Value Reference Range Interpretation [...] 66 U/L 6-55 H 347) BASIC METABOLIC [id number] 05:05:00 Test Item Value Reference Range Interpretation [...] (BEAKER) (test code = 413) HEMOGLOBIN AND [id number] 22:17:00 Test Item Value Reference Range Interpretation Comments HEMOGLOBIN (BEAKER) (test code = 11.1 GM/DL 11.2-15.7 L 410) HEMATOCRIT (BEAKER) (test code = 32.9 % 34.1-44.9 L 411) [id number] 20:13:00 Test Item Value Reference Range Interpretation [...] 2.5-3.5 for patients with mechanical heart valves.PLATELET [id number] 20:04:00 Test Item Value Reference Range Interpretation Comments PLATELET COUNT (BEAKER) (test 109 K/CU MM 150-450 L code = 756) HEMOGLOBIN AND [id number] 16:24:00 Test Item Value Reference Range Interpretation Comments HEMOGLOBIN (BEAKER) (test code = 11.1 GM/DL 11.2-15.7 L 410) HEMATOCRIT (BEAKER) (test code = 34.1 % 34.1-44.9 411) SODIUM NA-STAT [id number] 14:54:00 Test Item Value Reference Range Interpretation Comments SODIUM (BEAKER) (test code = 381) 136 meq/L 135-148 POTASSIUM-STAT [id number] 14:54:00 Test Item Value Reference Range Interpretation Comments POTASSIUM (BEAKER) (test code = 5.0 meq/L 3.6-5.5 379) GLUCOSE-STAT [id number] 14:54:00 Test Item Value Reference Range Interpretation Comments GLUCOSE RANDOM (BEAKER) (test code 152 mg/dL 70-110 H = 652) HGB/HCT (H&H) - STAT [id number] 14:54:00 Test Item Value Reference Range Interpretation Comments HEMOGLOBIN (BEAKER) (test code = 10.8 g/dL 12.0-15.0 L 410) HEMATOCRIT (BEAKER) (test code = 32.0 % 36.0-45.0 L 411) BLOOD GAS, [id number] 14:54:00 Test Item Value Reference Range Interpretation [...] (test code = 1819) 60.0 % CALCIUM, [id number] 14:53:00 Test Item Value Reference Range Interpretation Comments CALCIUM IONIZED (BEAKER) (test 1.12 mmol/L 1.12-1.27 code = 698) PH, BLOOD (BEAKER) (test code = 7.27 1810) BASIC METABOLIC [id number] 12:13:00 Test Item Value Reference Range Interpretation [...] APPLICABLE FOR DIALYSIS PATIEN TS. HEMOGLOBIN AND [id number] 11:52:00 Test Item Value Reference Range Interpretation Comments HEMOGLOBIN (BEAKER) (test code = 7.5 GM/DL 11.2-15.7 L 410) HEMATOCRIT (BEAKER) (test code = 23.6 % 34.1-44.9 L 411) TISSUE [id number] 15:12:00Surgical Pathology Report Case: [id number] Authorizing Provider: Haydee Srivastava MD Collected: 10/01/2017 1054 Ordering Location: [facility] Endoscopy Received: 10/01/2017 1352 Services Pathologist: Frantz Cowart MD Specimen: Biopsy, Gastric GASTRIC BIOPSY- CHRONIC INACTIVE GASTRITIS- NO INTESTINAL METAPLASIA, NO DYSPLASIA AND NO MALIGNANCY IDENTIFIED- NO HELICOBACTER PYLORI ORGANISMS IDENTIFIED Signing Pathologist Direct Phone Line: [phone] signed by Frantz Cowart MD on 10/02/2017 at 3:12 [id number] findings on diagnostic imaging of abdomen Gastric [...] Intestinal metaplasia, dysplasia and malignancy are not [id number] 14:30:00 Test Item Value Reference Range Interpretation Comments SODIUM (BEAKER) (test code = 381) 141 meq/L 136-145 POTASSIUM (BEAKER) (test code = 4.6 meq/L 3.5-5.1 379) CHLORIDE (BEAKER) (test code = 382) 106 meq/L 98-107 CO2 (BEAKER) (test code = 355) 28 meq/L 22-29 BUN AND [id number] 14:30:00 Test Item Value Reference Range Interpretation Comments BLOOD UREA NITROGEN 17 mg/dL 7-21 (BEAKER) (test code = 354) CREATININE (BEAKER) 0.84 mg/dL 0.57-1.25 (test code = 358) EGFR (BEAKER) (test 65 mL/min/1.73 ESTIMA SHALONDA GFR IS code = 1092) sq m NOT ACCURATE CREATININE CLEARANCE IN PREDICTING GLOMERULAR FILTRATION RATE . ESTIMATED GFR I S NOT APPLICABLE FOR DIALYSIS PATIEN TS. PT/[id number] 13:00:00 Test Item Value Reference Range Interpretation [...] is 2.5-3.5 for patients with mechanical heart valves.[id number] 12:43:00 Test Item Value Reference Range Interpretation Comments HEMOGLOBIN (BEAKER) (test code = 13.2 GM/DL 11.2-15.7 410) PLATELET [id number] 12:43:00 Test Item Value Reference Range Interpretation Comments PLATELET COUNT (BEAKER) (test 200 K/CU MM 150-450 code = 756) RAD, CHEST, 2 [id number] 15:30:00Reason for Exam:->I48.91FINAL REPORT TECHNIQUE: Frontal and [...] IMPRESSION:No a cute cardiopulmonary abnormalities. Signed: Ap Lane MDReport Verified Date/Time: 09/23/201715:30:37 Reading Location: [address] Radiology Reading Room [id number] 07:33:00 Test Item Value Reference Range Interpretation Comments MAGNESIUM (BEAKER) (test code = 1.8 mg/dL 1.6-2.6 627) BASIC METABOLIC [id number] 07:33:00 Test Item Value Reference Range Interpretation [...] S NOT APPLICABLE FOR DIALYSIS PATIEN TS. [id number] 05:10:00 Test Item Value Reference Range Interpretation Comments MAGNESIUM (BEAKER) (test code = 1.7 mg/dL 1.6-2.6 627) BASIC METABOLIC [id number] 05:10:00 Test Item Value Reference Range Interpretation [...] DIALYSIS PATIEN TS. STOOL CULTURE + SHIGA [id number] 08:02:00 Test Item Value Reference Range Interpretation Comments CULTURE (BEAKER) No Salmonella, Shigella (test code = 1095) or Campylobacter isolated BLOOD [id number] 06:00:00 Test Item Value Reference Range Interpretation Comments CULTURE (BEAKER) (test No growth in 5 days code = 1095) BLOOD [id number] 06:00:00 Test Item Value Reference Range Interpretation Comments CULTURE (BEAKER) (test No growth in 5 days code = 1095) FECAL [id number] 19:16:00 Test Item Value Reference Range Interpretation Comments FECAL LEUKOCYTES No fecal leukocytes No fecal leukocytes (BEAKER) (test code = seen seen 992) SHIGA TOXIN [id number] 14:24:00 Test Item Value Reference Range Interpretation Comments SHIGA TOXIN 1 (BEAKER) (test Not detected Not detected code = 2177) SHIGA TOXIN 2 (BEAKER) (test Not detected Not detected code = 2179) STOOL PATH [id number] 08:46:00 Test Item Value Reference Range Interpretation Comments PATHOGEN EXAM CHARGED (BEAKER) (test Done code = 7821) BASIC METABOLIC [id number] 04:22:00 Test Item Value Reference Range Interpretation [...] (test code = 413) C. DIFFICILE GDH [id number] 13:48:00 Test Item Value Reference Range Interpretation Comments CDT TOXIN (test code Negative Negative = [id number]) CDT GDH ANTIGEN Positive Negative A C. difficile present but (test code = toxin not detec shalonda. [id number]) Indicates colon ization with non-toxige gema strain or level of tox in below detectable leve ls. No need for enteri c isolation. Darin atment is rarely needed ( only when strong clinical suspicion for Clostridium difficile infection) Testing performed by [employer] Rapid Cassette Assay. For GDH, published sensitivity of the assay is 98.7% compared to cytotoxicity testing. For Toxin AB, published sensitivity is 87.8% and specificity 99.4% compared to cytotoxicity testing.Verification of kit performance was done by the [facility] Microbiology Lab prior to clinical use.BASIC METABOLIC [id number] 06:14:00 Test Item Value Reference Range Interpretation [...] (BEAKER) (test code = 413) BASIC METABOLIC [id number] 06:21:00 Test Item Value Reference Range Interpretation [...] 0-0 (BEAKER) (test code = 413) URINE [id number] 08:21:00 Test Item Value Reference Range Interpretation Comments CULTURE (BEAKER) (test code = 1095) No growth BASIC METABOLIC [id number] 04:48:00 Test Item Value Reference Range Interpretation [...] (BEAKER) (test code = 413) U/S, ABDOMINAL, [id number] 17:22:00Reason for exam:- >choledochelithiasis, nephrolithiasisFINAL REPORT INDICATION: [...] MDReport Verified Date/Time: 08/13/2017 17:22:58 Reading Location: [place] [id number] Ultrasound Reading Room Electronically signed by: BHAVIK BAIN M.D. on 2017 05:22 PMHEPATIC FUNCTION [id number] 05:29:00 Test Item Value Reference Range Interpretation [...] = 19 U/L 6-55 347) BASIC METABOLIC [id number] 05:29:00 Test Item Value Reference Range Interpretation [...] (BEAKER) (test code = 413) URINALYSIS W/ [id number] 02:55:00 Test Item Value Reference Range Interpretation [...] 520) SOURCE(BEAKER) (test code = Urine, Voided 4346) RAD, CHEST, 1 VIEW, NON [id number] 21:18:00Reason for exam:->sobShould this be performed at [...] abnormality. Impression: No acute abnormality. Signed: Jessica Herzog MDReport Verified Date/Time: 08/12/2017 21:18:28 Reading Location: [address] Reading Room [id number] 07:00:00 Test Item Value Reference Range Interpretation Comments MAGNESIUM (BEAKER) (test code = 1.9 mg/dL 1.6-2.6 627) BASIC METABOLIC [id number] 07:00:00 Test Item Value Reference Range Interpretation [...] PATIEN TS. CBC W/PLT COUNT & AUTO [id number] 06:43:00 Test Item Value Reference Range Interpretation [...] = 2801) RAD, CHEST, 1 VIEW, NON [id number] 21:45:00Reason for exam:->s/p PPM implantShould this be [...] or acute osseous abnormality. Signed: Jluis Garcia Verified Date/Time:07/19/2017 21:45:59 Reading Location: [address] Reading Room EEG AWAKE AND [id number] 14:50:00Reason for exam:->syncope vs seizureEEG REPORT: Keysha Mejia [facility] Date of EEDate of report: Test location: Inpatient - Patient RoomEEG start time: 1319EEG end time: 1340EEG #: [id number] No: [id number] ICD Code: #: R55: Syncope and Collapse (ICD 9: 780.2)CPT Code: #: 15275: 02. EEG awake and asleep; 20-40 minPROCEDURE: [...] Further clinical correlation is suggestedClinical Fellow: Phylicia VermaNeurophysiologist: Yareli Gonzalez Electronically signed by: YARELI Soriano 07/19/2017 02:50 PMTSH/FREE T4 IF [id number] 07:14:00 Test Item Value Reference Range Interpretation Comments THYROID STIMULATING HORMONE 1.37 uIU/mL 0.35-4.94 (BEAKER) (test code = 772) [id number] 07:05:00 Test Item Value Reference Range Interpretation Comments MAGNESIUM (BEAKER) (test code = 1.8 mg/dL 1.6-2.6 627) BASIC METABOLIC [id number] 07:05:00 Test Item Value Reference Range Interpretation [...] PATIEN TS. CBC W/PLT COUNT & AUTO [id number] 06:37:00 Test Item Value Reference Range Interpretation [...] (BEAKER) (test code = 2801) BASIC METABOLIC [id number] 21:33:00 Test Item Value Reference Range Interpretation [...] DIALYSIS PATIEN TS. URINALYSIS W/ REFLEX URINE [id number] 16:11:00 Test Item Value Reference Range Interpretation [...] (test code = 2795) CT, BRAIN, WITHOUT [id number] 14:40:00Reason for exam:->SEIZURESWhat is the patient's sedation [...] evaluation with MRI is recommended. Signed: Nan Castilloort Verified Date/Time: 07/18/2017 14:40:04 Reading Location: [facility] Radiology Reading Room RAD, CHEST, 1 VIEW, NON [id number] 12:33:00Reason for exam:->SEIZURESFINAL REPORT Chest one view INDICATION: Seizures COMPARISON: 07/15/2017 IMPRESSION: Diffuse interstitial and central groundglass opacities may reflect mild edema or atypical pneumonitis. No pneumothorax or significant pleural effusion is seen. The cardiac silhouette is enlarged. The aorta is mildly ectatic/tortuous. A loop recorder overlies the left chest. There are osseous degenerative changes. Signed: Ascencion Marshall MDReport Verified Date/Time: 07/18/2017 12:33:45 Reading Location: [facility] Radiology Reading Room CREATINE KINASE (CK), TOTAL AND [id number] 12:15:00 Test Item Value Reference Range Interpretation Comments CREATINE KINASE TOTAL (BEAKER) 36 U/L 29-200 (test code = 380) CREATINE KINASE-MB (BEAKER) (test 1.8 ng/mL 0.0-6.6 code = 750) CREATINE KINASE-MB INDEX (BEAKER) 5.0 % (test code = 395) CK-MB Reference Range:<6.7 Normal6.7-10.0 Borderline>10.0 AbnormalTROPONIN [id number] 12:15:00 Test Item Value Reference Range Interpretation [...] pg/mL 0-100 H (test code = 700) [id number] 12:08:00 Test Item Value Reference Range Interpretation Comments MAGNESIUM (BEAKER) 2.9 mg/dL 1.6-2.6 H Specimen markedly (test code = 627) hemolyzed BASIC METABOLIC [id number] 12:08:00 Test Item Value Reference Range Interpretation [...] PATIEN TS. CBC W/PLT COUNT & AUTO [id number] 11:54:00 Test Item Value Reference Range Interpretation [...] PERCENT (BEAKER) (test code = 2801) POCT-GLUCOSE [id number] 11:13:00 Test Item Value Reference Range Interpretation Comments POC-GLUCOSE METER 100 mg/dL 70-110 TESTED AT [place] [address] (JOVON) (test code = [place] 1538) [address] RAD, CHEST, 2 [id number] 15:41:00Reason for Exam:->Paroxysmal atrial fibrillation [I48.0]FINAL REPORT INDICATION: Paroxysmal atrial fibrillation [I48.0] COMPARISON: March 30, 2016 TECHNIQUE: Chest radiograph, two views, PA and lateral. FINDINGS / IMPRESSION:Mild enlargement of the heart shadow and implanted chest wall monitoring device again demonstrated. No pulmonary edema or pleural effusion is present. No pneumonia or pneumothorax demonstrated. Osseous structures are unremarkable. Signed: Bhavik Bain MDReport Verified Date/Time: 07/15/2017 15:41:26 Reading Location: [address] Radiology Reading Room
== END 2019-08-26 10:55 | disposition home or self-care (01) ==
LOC: OR 08:38
PROVIDERS: ATTEND Internal Medicine Gastroenterology
PROC: 0DJD8ZZ Inspection of Lower Intestinal Tract, Via Natural or Artificial Opening Endoscopic (ICD-10-PCS; principal; 2019-08-26 09:00)
PROC: 0DJ08ZZ Inspection of Upper Intestinal Tract, Via Natural or Artificial Opening Endoscopic (ICD-10-PCS; 2019-08-26 09:00)
DX: K57.30 Diverticulosis of large intestine without perforation or abscess without bleeding (principal); K64.8 Other hemorrhoids; I10 Essential (primary) hypertension; I48.91 Unspecified atrial fibrillation; Z88.8 Allergy status to other drugs, medicaments and biological substances
CPT/HCPCS: 45330; 43235; J2704; J0690; J7120